=== PATIENT | male | born 1965 | race Hispanic/Latino ===

== ENCOUNTER 2019-06-02 22:47 | Emergency (ER) | payer SELFPAY ==
[2019-06-03 00:02] LABS: Eosinophils # (Auto) 0.1 K/mm3 (0.0-0.4); Eosinophils % (Auto) 2.5 % (0.0-4.3); Hemoglobin 14.3 gm/dl (11.8-15.2); Lymphocytes # (Auto) 1.2 K/mm3 (1.2-5.4); Lymphocytes % (Auto) 35.9 % (13.4-35.0); Mean Corpuscular HGB Conc 34 % (32-34); Mean Corpuscular Volume 94 fl (84-94); Monocytes # (Auto) 0.3 K/mm3 (0.0-0.8); Monocytes % (Auto) 8.3 % (0.0-7.3); Red Blood Count 4.47 M/mm3 (3.65-5.03); Red Cell Distribution Width 14.3 % (13.2-15.2)
[2019-06-03 00:18] LABS: Albumin 3.9 g/dL (3.9-5)
[2019-06-03 00:42] LABS: Bilirubin,Urine NEG (Negative); Blood,Urine NEG (Negative); Color,Urine Yellow (Yellow)
[2019-06-03 00:51] LABS: Protein,Urine >500 mg/dL (Negative)
[2019-06-03] MEDS ORDERED: ZOFRAN IV ONE (03:35)
[2019-06-03] MEDS ORDERED: TORADOL IV ONE (03:35)
[2019-06-03] MEDS ORDERED: ROCEPHIN/NS 1 GM/50 ML 1 GM/50 ML BAG IV ONE (03:35)
[2019-06-03] MEDS ORDERED: NACL 0.9% 1000 ML 1,000 ML IV ONE (03:35)
[2019-06-03] MEDS ORDERED: CATAPRES PO ONE (03:38)
--- NOTE | 2019-06-03 03:44 | Emergency Department Report ---
ED General Adult HPI - General Chief complaint: High BP Stated complaint: KIDNEY PAIN BLOOD IN URINE SWOLLEN HAND Time Seen by Provider: 06/03/19 03:33 Source: patient Mode of arrival: Ambulatory Limitations: No Limitations - History of Present Illness Initial comments: Patient is a 54-year-old white male with history of hypertension chronic renal insufficiency, recurrent renal stones, and CHF current medications Was sent for L and amlodipine only who presents for left leg. Plain with hematuria patient denies fevers or chills no nausea vomiting flank pain described as 5/10 radiating to the suprapubic Onset/Timin -: week(s) Location: back, abdomen Radiation: abdomen Severity scale (0 -10): 10 Quality: burning Consistency: intermittent Improves with: none Worsens with: other (voiding ) Treatments Prior to Arrival: none - Related Data Previous Rx's Medication Instructions Recorded Last Taken Type Ciprofloxacin HCl [Ciprofloxacin 500 mg PO BID 10 Days #20 tab 06/03/19 Unknown Rx TAB] Omeprazole 40 mg PO DAILY #30 capsule. 06/03/19 Unknown Rx Tamsulosin [Flomax] 0.4 mg PO QDAY #12 cap 06/03/19 Unknown Rx amLODIPine [Norvasc] 10 mg PO DAILY #30 tab 06/03/19 Unknown Rx traMADol [Ultram] 50 mg PO Q6HR PRN #12 tablet 06/03/19 Unknown Rx Allergies Allergy/AdvReac Type Severity Reaction Status Date / Time Sulfa (Sulfonamide Allergy Hives Verified 06/02/19 23:12 Antibiotics) sulfamethoxazole Allergy Hives Verified 06/02/19 23:12 [From Bactrim] trimethoprim [From Bactrim] Allergy Hives Verified 06/02/19 23:12 ED Review of Systems ROS: Stated complaint: KIDNEY PAIN BLOOD IN URINE SWOLLEN HAND Other details as noted in HPI Constitutional: denies: chills, fever Eyes: denies: eye pain, eye discharge, vision change ENT: denies: ear pain, throat pain Respiratory: denies: cough, shortness of breath, wheezing Cardiovascular: denies: chest pain, palpitations Endocrine: no symptoms reported Gastrointestinal: abdominal pain, nausea. denies: vomiting, diarrhea, constipation, hematemesis, melena, hematochezia Genitourinary: urgency, dysuria, frequency, hematuria. denies: discharge, testicular pain, testicular mass Musculoskeletal: back pain Skin: denies: rash, lesions Neurological: denies: headache, weakness, paresthesias Psychiatric: denies: anxiety, depression Hematological/Lymphatic: denies: easy bleeding, easy bruising ED Past Medical Hx - Past Medical History Previous Medical History?: Yes Hx Hypertension: Yes Hx Congestive Heart Failure: Yes Hx Kidney Stones: Yes Hx Tuberculosis: Yes Additional medical history: Acute Kidney failure - Surgical History Past Surgical History?: Yes Additional Surgical History: Litotripsy - Social History Smoking Status: Current Every Day Smoker Substance Use Type: None - Medications Home Medications: Home Medications Medication Instructions Recorded Confirmed Last Taken Type Ciprofloxacin HCl [Ciprofloxacin 500 mg PO BID 10 Days #20 tab 06/03/19 Unknown Rx TAB] Omeprazole 40 mg PO DAILY #30 capsule.dr 06/03/19 Unknown Rx Tamsulosin [Flomax] 0.4 mg PO QDAY #12 cap 06/03/19 Unknown Rx amLODIPine [Norvasc] 10 mg PO DAILY #30 tab 06/03/19 Unknown Rx traMADol [Ultram] 50 mg PO Q6HR PRN #12 tablet 06/03/19 Unknown Rx ED Physical Exam - General Limitations: No Limitations General appearance: alert, in no apparent distress - Head Head exam: Present: atraumatic, normocephalic - Eye Eye exam: Present: normal appearance, PERRL, EOMI Pupils: Present: normal accommodation - ENT ENT exam: Present: normal exam, mucous membranes moist - Neck Neck exam: Present: normal inspection, full ROM. Absent: tenderness, lymphadenopathy, thyromegaly - Respiratory Respiratory exam: Present: normal lung sounds bilaterally. Absent: respiratory distress, chest wall tenderness - Cardiovascular Cardiovascular Exam: Present: regular rate, normal rhythm, normal heart sounds. Absent: systolic murmur, diastolic murmur, rubs, gallop - GI/Abdominal GI/Abdominal exam: Present: soft, normal bowel sounds. Absent: distended, tenderness, bruit, hernia - Rectal Rectal exam: Present: deferred - Extremities Exam Extremities exam: Present: normal inspection, full ROM, normal capillary refill - Back Exam Back exam: Present: normal inspection, full ROM, tenderness, CVA tenderness (L). Absent: muscle spasm, rash noted - Neurological Exam Neurological exam: Present: alert, oriented X3 - Psychiatric Psychiatric exam: Present: normal affect, normal mood - Skin Skin exam: Present: warm, dry, intact, normal color. Absent: rash ED Course Vital Signs 06/02/19 06/03/19 06/03/19 23:19 02:48 03:50 Temperature 97.9 F Pulse Rate 78 64 66 Respiratory 18 20 Rate Blood Pressure 194/138 165/108 164/111 Blood Pressure [Left] O2 Sat by Pulse 98 98 Oximetry 06/03/19 06/03/19 06/03/19 03:55 04:09 04:39 Temperature Pulse Rate 66 Respiratory 20 20 18 Rate Blood Pressure Blood Pressure 164/111 [Left] O2 Sat by Pulse 99 Oximetry ED Medical Decision Making - Lab Data Result diagrams: 06/02/19 23:36 06/02/19 23:36 - Radiology Data Radiology results: report reviewed, image reviewed Ordering Physician: LUPE BARNHART NP Date of Service: 06/03/19 Procedure(s): CT abdomen pelvis wo con Accession Number(s): [id number] cc: LUPE BARNHART NP CT abdomen pelvis wo con INDICATION / CLINICAL INFORMATION: flank pain left side x 3 days, patient states he has a history of kidney stones.. TECHNIQUE: All CT scans at this location are performed using CT dose reduction for ALARA by means of automated exposure control. COMPARISON: None available. FINDINGS: Visualized lower lungs are clear. ABDOMEN: Cholelithiasis. There is mild hepatomegaly and splenomegaly. The pancreas is normal. The right kidney is normal. Left kidney is small and there is a left hydronephrosis and ureteral dilatation to the level of the left ureterovesical junction where a 1.5 cm calculus is demonstrated. No small bowel abnormality. The infrarenal abdominal aorta and both iliac arteries are ectatic. The distal abdominal aorta measures 2.7 cm. No evidence of mesenteric or retroperitoneal lymph node enlargement. Pelvis: The appendix is normal. No dependent fluid collections or acute inflammatory findings. No significant skeletal abnormalities. IMPRESSION: 1. Cholelithiasis. 2. Large distal left ureteral calculus with hydronephrosis and chronic atrophy of the left kidney. 3. Hepatosplenomegaly. Signer Name: Ellis Albright MD Signed: 06/03/2019 5:24 AM Workstation Name: [id number] Transcribed By: KARRIE Dictated By: Ellis Albright MD Electronically Authenticated By: Ellis Albright MD Signed Date/Time: 06/03/19523 DD/ 7 TD/TT: - Medical Decision Making CT abd pelvis: 1. Cholelithiasis. 2. Large distal left ureteral calculus with hydronephrosis and chronic atrophy of the left kidney. 3. Hepatosplenomegaly. pt is voiding without pain or hematuria at this time there is no fever no chills no n/v pt is tolarating po intake, pt has chronic renal disease, bp is improve wtih medications given in ed and pain is now 2/10 tolerable per patient, I have offered admission and nephrology consult pt declines advises he cannot stay for admission and will follow up with with his [employer], and pcp , pt advised to take bp medication as rx, given follow up with [facility] and [facility], Kieran pcp , pt verbalized understanding of same pt departs ed in stable condition with rx for cipro, flomax, ultram, Critical care attestation.: If time is entered above; I have spent that time in minutes in the direct care of this critically ill patient, excluding procedure time. ED Disposition Clinical Impression: Kidney stone on left side, Gall stones Chronic renal insufficiency Qualifiers: Chronic kidney disease stage: unspecified stage Qualified Code(s): N18.9 - Chronic kidney disease, unspecified Disposition: - TO HOME OR SELFCARE Is pt being admited?: No Does the pt Need Aspirin: No Condition: Stable Instructions: Kidney Stones (ED), Cholelithiasis (ED) Prescriptions: Ciprofloxacin HCl [Ciprofloxacin TAB] 500 mg PO BID 10 Days #20 tab Tamsulosin [Flomax] 0.4 mg PO QDAY #12 cap amLODIPine [Norvasc] 10 mg PO DAILY #30 tab Omeprazole 40 mg PO DAILY #30 capsule. traMADol [Ultram] 50 mg PO Q6HR PRN #12 tablet PRN Reason: Pain Referrals: ANA DOZIER MD [Staff Physician] - 2-3 Days MATA LE MD [Staff Physician] - 2-3 Days DANIEL WU MD [Staff Physician] - 2-3 Days Forms: Work/School Release Form(ED) Time of Disposition: 05:57
--- NOTE | 2019-06-03 04:34 | XRay Report ---
CHEST 2 VIEWS INDICATION / CLINICAL INFORMATION: sob. COMPARISON: None available. FINDINGS: SUPPORT DEVICES: None. HEART / MEDIASTINUM: No significant abnormality. LUNGS / PLEURA: No acute pulmonary disease. Possible pulmonary nodularity in the right midlung overly ing the posterior portion of the right seventh rib. No pneumothorax. ADDITIONAL FINDINGS: No significant additional findings. IMPRESSION: 1. No acute findings. 2. Possible right pulmonary nodule. Signer Name: Ellis Albright MD Signed: 06/03/2019 4:30 AM Workstation Name: [id number]
--- NOTE | 2019-06-03 05:28 | Cat Scan Report ---
CT abdomen pelvis wo con INDICATION / CLINICAL INFORMATION: flank pain left side x 3 days, patient states he has a history of kidney stones.. TECHNIQUE: All CT scans at this location are performed using CT dose reduction for ALARA by means of automated e xposure control. COMPARISON: None available. FINDINGS: Visualized lower lungs are clear. ABDOMEN: Cholelithiasis. There is mild hepatomegaly and splenomegaly. The pancreas is normal. The right kidney is normal. Left kidney is small and there is a left hydronephrosis and ureteral dilatation to the level of the l eft ureterovesical junction where a 1.5 cm calculus is demonstrated. No small bowel abnormality. The infrarenal abdominal aorta and both iliac arteries are ectatic. The distal abdominal aorta measur es 2.7 cm. No evidence of mesenteric or retroperitoneal lymph node enlargement. Pelvis: The appendix is normal. No dependent fluid collections or acute inflammatory findings. No significant skeletal abnormalities. IMPRESSION: 1. Cholelithiasis. 2. Large distal left ureteral calculus with hydronephrosis and chronic atrophy of the left kidney. 3. Hepatosplenomegaly. Signer Name: Ellis Albright MD Signed: 06/03/2019 5:24 AM Workstation Name: [id number]
[2019-06-03 05:55] VITALS: BP 146/100
[2019-06-03 06:57] LABS: Platelet Count 77 K/mm3 (140-440)
--- NOTE | 2019-06-04 15:06 | XRay Report ---
LEFT HAND, 2 VIEWS 06/02/2019 INDICATION / CLINICAL INFORMATION: Swollen and painful right hand.. COMPARISON: None available. FINDINGS: Slight prominence of the soft tissues of the hand without evidence of radiopaque foreign body or skel etal abnormality. Signer Name: Ellis Albright MD Signed: 06/02/2019 11:50 PM Workstation Name: [id number]
== END 2019-06-03 06:10 | disposition home or self-care (01) ==
LOC: ED 22:47
DX: I13.0 Hypertensive heart and chronic kidney disease with heart failure and stage 1 through stage 4 chronic kidney disease, or unspecified chronic kidney disease (principal); I50.9 Heart failure, unspecified; N18.9 Chronic kidney disease, unspecified; F17.200 Nicotine dependence, unspecified, uncomplicated; Z88.2 Allergy status to sulfonamides; Z79.899 Other long term (current) drug therapy
CPT/HCPCS: 36415; 71046; 73120; 74176; 80053; 81001; 85025; 87076; 87086; 87186; 96365; 96375; 99284; J0696; J1885; J2405; J7030

== ENCOUNTER 2020-03-30 21:37 | Inpatient (IN) | payer OTHER ==
[2020-03-30] MEDS ORDERED: ASPIRIN 325 MG TAB PO ONE (21:52)
[2020-03-30 22:22] LABS: Calcium 9.5 mg/dL (8.4-10.2)
[2020-03-30 22:25] LABS: Basophils % (Auto) 0.6 % (0.0-1.8); Eosinophils % (Auto) 0.6 % (0.0-4.3); Hematocrit 33.2 % (35.5-45.6); Hemoglobin 10.9 gm/dl (11.8-15.2); Lymphocytes # (Auto) 0.6 K/mm3 (1.2-5.4); Lymphocytes % (Auto) 11.9 % (13.4-35.0); Mean Corpuscular HGB Conc 33 % (32-34); Mean Corpuscular Volume 91 fl (84-94); Monocytes # (Auto) 0.4 K/mm3 (0.0-0.8); Monocytes % (Auto) 8.5 % (0.0-7.3); Platelet Count 145 K/mm3 (140-440); Red Blood Count 3.66 M/mm3 (3.65-5.03); Red Cell Distribution Width 17.1 % (13.2-15.2)
[2020-03-30 22:38] LABS: Chol/HDL Ratio 6.38 %
--- NOTE | 2020-03-30 22:45 | XRay Report ---
CHEST 1 VIEW INDICATION: Chest Pain. COMPARISON: 10/13/2019 FINDINGS: Support devices: None. Heart: Within normal limits. Lungs/Pleura: No acute air space or interstitial disease. Additional findings: None. IMPRESSION: 1. No acute findings. Signer Name: Barron Guerrero MD Signed: 03/30/2020 10:41 PM Workstation Name: [id number]
--- NOTE | 2020-03-30 22:56 | Emergency Department Report ---
ED Chest Pain HPI - General Chief Complaint: Chest Pain Stated Complaint: SEVERE CHEST PAIN SOB PUI?: No Time Seen by Provider: 03/30/20 22:48 Source: patient Mode of arrival: Ambulatory Limitations: No Limitations - History of Present Illness Initial Comments: Patient is a 54-year-old male that presents emergency room with complaints of chest pain or shortness of breath x2 weeks. Patient states that his chest pain is worsening. Patient states that he is chest pain or shortness of breath are better with rest and worse with exertion. Patient states he cannot catch his breath. Patient states he is also been having problems with anxiety. Patient states that his been using meth for the past 3 months and stopped 4 days ago. Patient denies fever. Patient also complains of dysuria. Patient states he is having difficulties peeing. Patient denies recent travel. Patient denies recent international travel. Patient denies exposure to the novel coronavirus. Patient denies sick contacts. Patient denies fever and chills. Patient denies cough. Patient denies diarrhea. Patient denies coming in contact with anybody with symptoms of the novel coronavirus. MD Complaint: chest pain -: Sudden Onset: during rest Pain Location: substernal, left chest Pain Radiation: none Severity: severe Severity scale (0 -10): 10 Quality: sharp Consistency: constant Improves With: rest Worsens With: exertion re: dyspnea. denies: nausea, vomting, diaphoresis, sense of impending doom Other Symptoms: denies: cough, fever, syncope, rash, acid taste in mouth, leg swelling, palpitations, burping Treatments Prior to Arrival: none Aspirin use within the Past 7 Days: (0) No - Related Data Previous Rx's Medication Instructions Recorded Last Taken Type Ciprofloxacin HCl [Ciprofloxacin 500 mg PO BID 10 Days #20 tab 06/03/19 Unknown Rx TAB] Omeprazole 40 mg PO DAILY #30 capsule. 06/03/19 Unknown Rx Tamsulosin [Flomax] 0.4 mg PO QDAY #12 cap 06/03/19 Unknown Rx amLODIPine 10 mg PO DAILY #30 tab 06/03/19 Unknown Rx traMADoL [Ultram] 50 mg PO Q6HR PRN #12 tablet 06/03/19 Unknown Rx Allergies Allergy/AdvReac Type Severity Reaction Status Date / Time Sulfa (Sulfonamide Allergy Hives Verified 06/02/19 23:12 Antibiotics) sulfamethoxazole Allergy Hives Verified 06/02/19 23:12 [From Bactrim] trimethoprim [From Bactrim] Allergy Hives Verified 06/02/19 23:12 Heart Score - HEART Score History: Slightly suspicious EKG: Non-specific Age: 45-65 Risk factors: No known risk factors Troponin: > 3x normal limit HEART Score: 4 ED Review of Systems ROS: Stated complaint: SEVERE CHEST PAIN SOB Other details as noted in HPI Constitutional: denies: chills, fever Eyes: denies: eye pain, eye discharge, vision change ENT: denies: ear pain, throat pain Respiratory: shortness of breath, SOB with exertion, SOB at rest. denies: cough, wheezing Cardiovascular: chest pain. denies: palpitations Endocrine: no symptoms reported Gastrointestinal: denies: abdominal pain, nausea, diarrhea Genitourinary: dysuria. denies: urgency Musculoskeletal: denies: back pain, joint swelling, arthralgia Skin: denies: rash, lesions Neurological: denies: headache, weakness, paresthesias Psychiatric: anxiety. denies: depression Hematological/Lymphatic: denies: easy bleeding, easy bruising ED Past Medical Hx - Past Medical History Previous Medical History?: Yes Hx Hypertension: Yes Hx Congestive Heart Failure: Yes Hx Liver Disease: No Hx Renal Disease: No Hx Kidney Stones: Yes Hx COPD: Yes Hx Tuberculosis: Yes - Surgical History Past Surgical History?: Yes Additional Surgical History: Litotripsy - Family History Family history: no significant - Social History Smoking Status: Current Every Day Smoker Substance Use Type: Alcohol, Marijuana, Methamphetamines - Medications Home Medications: Home Medications Medication Instructions Recorded Confirmed Last Taken Type Ciprofloxacin HCl [Ciprofloxacin 500 mg PO BID 10 Days #20 tab 06/03/19 Unknown Rx TAB] Omeprazole 40 mg PO DAILY #30 capsule. 06/03/19 Unknown Rx Tamsulosin [Flomax] 0.4 mg PO QDAY #12 cap 06/03/19 Unknown Rx amLODIPine 10 mg PO DAILY #30 tab 06/03/19 Unknown Rx traMADoL [Ultram] 50 mg PO Q6HR PRN #12 tablet 06/03/19 Unknown Rx ED Physical Exam - General Limitations: No Limitations General appearance: alert, in no apparent distress - Head Head exam: Present: atraumatic, normocephalic - Eye Eye exam: Present: normal appearance, PERRL Pupils: Present: normal accommodation - ENT ENT exam: Present: mucous membranes moist - Neck Neck exam: Present: normal inspection - Respiratory Respiratory exam: Present: normal lung sounds bilaterally. Absent: respiratory distress, wheezes, chest wall tenderness - Cardiovascular Cardiovascular Exam: Present: regular rate, normal rhythm. Absent: systolic murmur, diastolic murmur, rubs, gallop - GI/Abdominal GI/Abdominal exam: Present: soft, normal bowel sounds - Rectal Rectal exam: Present: deferred - Extremities Exam Extremities exam: Present: normal inspection - Back Exam Back exam: Present: normal inspection - Neurological Exam Neurological exam: Present: alert, oriented X3 - Psychiatric Psychiatric exam: Present: anxious - Skin Skin exam: Present: warm, dry, intact, normal color. Absent: rash ED Course Vital Signs 03/30/20 03/30/20 03/31/20 21:48 22:54 00:29 Temperature 98.3 F Pulse Rate 79 74 65 Respiratory 22 17 17 Rate Blood Pressure 142/102 Blood Pressure 148/96 128/94 [Right] O2 Sat by Pulse 98 100 100 Oximetry - Reevaluation(s) Reevaluation #1: Patient is complaining of increased chest pain and anxiety. Patient will be given morphine and Ativan. 03/30/20 23:19 Reevaluation #2: Patient states he is feeling better. 03/31/20 00:00 0 Reevaluation #3: I discussed all results with patient. I discussed plan of care with patient. Patient agrees with plan of care and admission. Patient to be admitted to the hospitalist service. 03/31/20 00:29 - Consultations Consultation #1: Hospitalist consulted for admission. Hospitalist to admit patient. 03/31/20 00:28 CHAZ score - Chaz Score Age > 65: (0) No Aspirin use within the Past 7 Days: (0) No 3 or more CAD Risk Factors: (0) No 2 or more Angina events in past 24 hrs: (1) Yes Known CAD with more than 50% Stenosis: (0) No Elevated Cardiac Markers: (1) Yes ST Deviation Greater than 0.5mm: (0) No CHAZ Score: 2 ED Medical Decision Making - Lab Data Result diagrams: 03/30/20 21:57 03/30/20 21:57 - EKG Data -: EKG Interpreted by Me EKG shows normal: sinus rhythm, axis, intervals, ST-T waves Rate: normal - EKG Data Interpretation: other (LBBB) - Radiology Data Radiology results: report reviewed, image reviewed CHEST 1 VIEW INDICATION: Chest Pain. COMPARISON: 10/13/2019 FINDINGS: Support devices: None. Heart: Within normal limits. Lungs/Pleura: No acute air space or interstitial disease. Additional findings: None. IMPRESSION: 1. No acute findings. - Medical Decision Making Patient is a 54-year-old male that presents emergency room with complaints of chest pain, shortness of breath and dysuria. Patient symptoms been going on for a few weeks. Patient is also had a 3 to 4 months binge of methamphetamines and he quit 4 weeks ago. Patient also complained of anxiety due to quitting methamphetamines. Patient's labs were remarkable for anemia, acute renal failure, elevated troponin, elevated BNP and UTI. Patient's chest x-ray is negative. Patient did not have any CHF changes on chest x-ray. Patient's EKG shows a left bundle branch block and no acute findings. Patient admitted to the hospitalist service. - Differential Diagnosis ACS, chest pain, CHF, kidney failure, drug abuse, dysuria, UTI Critical Care Time: Yes Critical care time in (mins) excluding proc time.: 35 Critical care attestation.: If time is entered above; I have spent that time in minutes in the direct care of this critically ill patient, excluding procedure time. Critical Care Time: 35 minutes ED Disposition Clinical Impression: SOB (shortness of breath), Anxiety, Elevated troponin, Methamphetamine abuse Chest pain Qualifiers: Chest pain type: unspecified Qualified Code(s): R07.9 - Chest pain, unspecified Acute renal failure Qualifiers: Acute renal failure type: unspecified Qualified Code(s): N17.9 - Acute kidney failure, unspecified Disposition: DC-09 OP ADMIT IP TO THIS HOSP Is pt being admited?: Yes Does the pt Need Aspirin: No Condition: Critical Time of Disposition: 00:29
[2020-03-30] MEDS ORDERED: MORPHINE 2 MG/1 ML INJ IV ONE (23:17)
[2020-03-30] MEDS ORDERED: LORazepam 2 MG/ML VIAL IV ONE (23:17)
[2020-03-30] MEDS ORDERED: ONDANSETRON 4 MG/2 ML INJ ONE (23:26)
[2020-03-30] MEDS ORDERED: ONDANSETRON 4 MG/2 ML INJ IV ONE (23:27)
[2020-03-30] MEDS ORDERED: SODIUM CHLORIDE 0.9% 500 ML 500 ML IV ONE (23:59)
[2020-03-31 01:00] LABS: Benzodiazepines Screen,Urine PRESUMPTIVE NEGATIVE; Cocaine Screen,Urine PRESUMPTIVE NEGATIVE; Methadone Screen,Urine PRESUMPTIVE NEGATIVE; Opiate Screen,Urine PRESUMPTIVE NEGATIVE
[2020-03-31 01:01] LABS: Bacteria,Urine 2+ /HPF (Negative); Bilirubin,Urine NEG (Negative); Blood,Urine LG (Negative); Color,Urine Yellow (Yellow); Mucus,Urine FEW /HPF; Urobilinogen,Urine < 2.0 mg/dL (<2.0)
[2020-03-31] MEDS ORDERED: MAGNESIUM HYDROXIDE (MOM) ORAL LIQD UDC PO PRN (01:07)
[2020-03-31] MEDS ORDERED: NITROGLYCERIN 0.4 MG TAB SUBL SL PRN (01:07)
[2020-03-31 01:09] LABS: Amphetamine Screen,Urine PRESUMPTIVE POSITIVE; Cannabinoid Screen,Urine PRESUMPTIVE POSITIVE
[2020-03-31 01:51] LABS: Basophils % (Auto) 0.4 % (0.0-1.8); Eosinophils % (Auto) 0.5 % (0.0-4.3); Hematocrit 30.4 % (35.5-45.6); Hemoglobin 10.2 gm/dl (11.8-15.2); Lymphocytes # (Auto) 0.5 K/mm3 (1.2-5.4); Lymphocytes % (Auto) 10.6 % (13.4-35.0); Mean Corpuscular HGB Conc 34 % (32-34); Mean Corpuscular Volume 89 fl (84-94); Monocytes # (Auto) 0.4 K/mm3 (0.0-0.8); Monocytes % (Auto) 8.6 % (0.0-7.3); Platelet Count 141 K/mm3 (140-440); Red Blood Count 3.41 M/mm3 (3.65-5.03)
[2020-03-31 02:11] LABS: Calcium 8.6 mg/dL (8.4-10.2)
--- NOTE | 2020-03-31 02:16 | History and Physical Report ---
History of Present Illness Date of examination: 03/31/20 Date of admission: 03/31/20 00:30 Chief complaint: Chest pain History of present illness: 54-year-old male with known history of hypertension and CHF presenting to the emergency room today complaining of chest pain or shortness of breath. Chest pain is said to be worse on exertion and improved some a resting. He also indicates that he has been having anxiety attacks lately. He admits to using methamphetamine over the past few months and stopped the use about 4 days ago. Chest pain is substernal and there is no radiation. Patient denies any fever or chills, no nausea vomiting, no headache or dizzines s, no hematuria but has had some dysuria. He denies any sick contacts and no recent travel. Denies contacts with anyone with COVID-19. Past History Past Medical History: COPD, heart failure, hypertension, other (History of kidney stone,TB) Past Surgical History: Other (Lithotripsy in the past) Social history: smoking (Daily smoker), alcohol abuse, other (Stroke marijuana use) Family history: no significant family history Medications and Allergies Allergies Allergy/AdvReac Type Severity Reaction Status Date / Time Sulfa (Sulfonamide Allergy Hives Verified 06/02/19 23:12 Antibiotics) sulfamethoxazole Allergy Hives Verified 06/02/19 23:12 [From Bactrim] trimethoprim [From Bactrim] Allergy Hives Verified 06/02/19 23:12 Home Medications Medication Instructions Recorded Confirmed Last Taken Type Ciprofloxacin HCl [Ciprofloxacin 500 mg PO BID 10 Days #20 tab 06/03/19 Unknown Rx TAB] Omeprazole 40 mg PO DAILY #30 capsule. 06/03/19 Unknown Rx Tamsulosin [Flomax] 0.4 mg PO QDAY #12 cap 06/03/19 Unknown Rx amLODIPine 10 mg PO DAILY #30 tab 06/03/19 Unknown Rx traMADoL [Ultram] 50 mg PO Q6HR PRN #12 tablet 06/03/19 Unknown Rx Active Meds: Active Medications Acetaminophen (Tylenol) 650 mg PO Q4H PRN PRN Reason: Pain MILD(1-3)/Fever >100.5/SINGH Aspirin (Ecotrin) 325 mg PO QDAY JULIENNE Ceftriaxone Sodium (Rocephin/Ns 1 Gm/50 Ml) 1 gm in 50 mls @ 100 mls/hr IV Q24HR JULIENNE; Protocol Sodium Chloride (Nacl 0.9% 1000 Ml) 1,000 mls @ 75 mls/hr IV DIRECT JULIENNE Magnesium Hydroxide (Milk Of Magnesia) 30 ml PO Q4H PRN PRN Reason: Constipation Morphine Sulfate (Morphine) 2 mg IV Q5MIN PRN PRN Reason: Chest Pain Nitroglycerin (Nitrostat) 0.4 mg SL Q5M PRN PRN Reason: Chest Pain Ondansetron HCl (Zofran) 4 mg IV Q8H PRN PRN Reason: Nausea And Vomiting Sodium Chloride (Sodium Chloride Flush Syringe 10 Ml) 10 ml IV BID JULIENNE Sodium Chloride (Sodium Chloride Flush Syringe 10 Ml) 10 ml IV PRN PRN PRN Reason: LINE FLUSH Review of Systems Constitutional: no fever, no chills Ears, nose, mouth and throat: no headache, no vertigo Cardiovascular: chest pain, no orthopnea, no palpitations Respiratory: shortness of breath, no cough Gastrointestinal: no abdominal pain, no nausea, no vomiting, no diarrhea Genitourinary Male: dysuria, urinary frequency, urinary hesitancy, no hematuria, no flank pain Musculoskeletal: no neck pain, no low back pain Integumentary: no rash, no pruritis Neurological: no headaches, no change in mentation Psychiatric: anxiety, anxiety attacks, no confusion Exam - Constitutional Vitals: Temp Pulse Resp BP Pulse Ox 98.3 F 64 16 131/84 97 03/30/20 21:48 03/31/20 02:10 03/31/20 02:10 03/31/20 02:10 03/31/20 02:10 General appearance: Present: no acute distress, well-nourished - EENT Eyes: Present: PERRL, EOM intact ENT: hearing intact, clear oral mucosa, dentition normal - Neck Neck: Present: supple, normal ROM - Respiratory Respiratory effort: normal Respiratory: bilateral: CTA - Cardiovascular Rhythm: regular Heart Sounds: Present: S1 & S2 - Extremities Extremities: no ischemia, pulses intact, pulses symmetrical, No edema, Full ROM Peripheral Pulses: within normal limits - Abdominal General gastrointestinal: Present: soft, non-tender, non-distended, normal bowel sounds - Integumentary Integumentary: Present: clear, warm, dry - Musculoskeletal Musculoskeletal: strength equal bilaterally - Psychiatric Psychiatric: appropriate mood/affect, intact judgment & insight, cooperative - Neurologic Neurologic: CNII-XII intact, moves all extremities HEART Score - HEART Score History: Moderately suspicious EKG: Non-specific Age: 45-65 Risk factors: 1-2 risk factors Troponin: Troponin T 0.141 ng/mL (0.00-0.029) H* 03/31/20 00:51 Troponin: 1-3x normal limit HEART Score: 5 Results - Labs CBC & Chem 7: 03/31/20 01:30 03/31/20 01:30 Labs: Abnormal lab results 03/30/20 03/30/20 03/30/20 Range/Units 21:57 21:57 21:57 WBC (4.5-11.0) K/mm3 RBC (3.65-5.03) M/mm3 Hgb 10.9 L (11.8-15.2) gm/dl Hct 33.2 L (35.5-45.6) % RDW 17.1 H (13.2-15.2) % Lymph % (Auto) 11.9 L (13.4-35.0) % [place] % (Auto) 8.5 H (0.0-7.3) % Lymph # 0.6 L (1.2-5.4) K/mm3 Seg Neutrophils % 78.4 H (40.0-70.0) % Sodium 130 L (137-145) mmol/L Chloride 96.5 L (98-107) mmol/L Carbon Dioxide 15 L (22-30) mmol/L BUN 107 H (9-20) mg/dL Creatinine 7.1 H (0.8-1.5) mg/dL Glucose 165 H (75-100) mg/dL Troponin T 0.141 H* (0.00-0.029) ng/mL NT-Pro-B Natriuret Pep > 50898 H (0-900) pg/mL HDL Cholesterol 26 L (40-59) mg/dL Urine WBC (Auto) (0.0-6.0) /HPF 03/31/20 03/31/20 03/31/20 Range/Units 00:29 00:51 01:30 WBC 4.4 L (4.5-11.0) K/mm3 RBC 3.41 L (3.65-5.03) M/mm3 Hgb 10.2 L (11.8-15.2) gm/dl Hct 30.4 L (35.5-45.6) % RDW 17.0 H (13.2-15.2) % Lymph % (Auto) 10.6 L (13.4-35.0) % [place] % (Auto) 8.6 H (0.0-7.3) % Lymph # 0.5 L (1.2-5.4) K/mm3 Seg Neutrophils % 79.9 H (40.0-70.0) % Sodium (137-145) mmol/L Chloride (98-107) mmol/L Carbon Dioxide (22-30) mmol/L BUN (9-20) mg/dL Creatinine (0.8-1.5) mg/dL Glucose (75-100) mg/dL Troponin T 0.141 H* (0.00-0.029) ng/mL NT-Pro-B Natriuret Pep (0-900) pg/mL HDL Cholesterol (40-59) mg/dL Urine WBC (Auto) 138.0 H (0.0-6.0) /HPF 03/31/20 Range/Units 01:30 WBC (4.5-11.0) K/mm3 RBC (3.65-5.03) M/mm3 Hgb (11.8-15.2) gm/dl Hct (35.5-45.6) % RDW (13.2-15.2) % Lymph % (Auto) (13.4-35.0) % [place] % (Auto) (0.0-7.3) % Lymph # (1.2-5.4) K/mm3 Seg Neutrophils % (40.0-70.0) % Sodium 132 L (137-145) mmol/L Chloride 97.6 L (98-107) mmol/L Carbon Dioxide 15 L (22-30) mmol/L BUN 105 H (9-20) mg/dL Creatinine 6.4 H (0.8-1.5) mg/dL Glucose 111 H (75-100) mg/dL Troponin T (0.00-0.029) ng/mL NT-Pro-B Natriuret Pep (0-900) pg/mL HDL Cholesterol (40-59) mg/dL Urine WBC (Auto) (0.0-6.0) /[facility] Assessment and Plan - Patient Problems (1) Chest pain Current Visit: Yes Status: Acute Qualifiers: Chest pain type: unspecified Qualified Code(s): R07.9 - Chest pain, unspecified Plan to address problem: Patient admitted and placed on telemetry. Will check serial cardiac enzymes. Will place on daily aspirin, sublingual nitroglycerin and IV morphine PRN for chest pain. Also schedule for stress test in the a.m. Elevated troponin may be secondary to his drug abuse however will place on heparin drip and await further evaluation and recommendation from the mate ship. (2) Acute renal failure Current Visit: Yes Status: Acute Qualifiers: Acute renal failure type: unspecified Qualified Code(s): N17.9 - Acute kidney failure, unspecified Plan to address problem: Etiology is unclear however may be related to his illicit drug abuse. Will monitor BUN and creatinine also place a consult to nephrology for evaluation. (3) Methamphetamine abuse Current Visit: Yes Status: Acute Plan to address problem: Patient counseled on quitting methamphetamine abuse. (4) UTI (urinary tract infection) Current Visit: Yes Status: Acute Plan to address problem: Patient placed on empiric IV antibiotics (5) DVT prophylaxis Current Visit: Yes Status: Acute Plan to address problem: Patient placed on subcutaneous heparin (6) Full code status Current Visit: Yes Status: Acute
[2020-03-31 07:30] LABS: Hematocrit 33.7 % (35.5-45.6); Hemoglobin 11.3 gm/dl (11.8-15.2)
[2020-03-31 07:41] LABS: INR 1.17 (0.87-1.13); Partial Thromboplastin Time 31.2 Sec. (24.2-36.6)
[2020-03-31] MEDS ORDERED: HEPARIN/ 0.45% NACL DRIP 25,000 UNIT/500 ML BAG IV SCH (08:00)
--- NOTE | 2020-03-31 09:17 | Ultrasound Report ---
ULTRASOUND RENAL INDICATION: fabiana. COMPARISON: CT abdomen and pelvis without contrast from 08/04/2019. FINDINGS: RIGHT KIDNEY: Size: 11.9 x 5.5 cm. Echogenicity: Increased. Cortical thickness: Normal, 1.9 cm. Hydronephrosis: None. Cyst or mass: None. Stones: None. LEFT KIDNEY: Size: 6.4 x 3.5 cm. Echogenicity: Increased. Cortical thickness: Moderate thinning, 0.8 cm. Hydronephrosis: None. Cyst or mass: None. Stones: None. Urinary Bladder: No significant abnormality. Free Fluid: Minimal right perinephric fluid is noted. Additional Findings: None. IMPRESSION 1. Findings consistent with medical renal disease. 2. Similar atrophy of the left kidney. Signer Name: Cesar Sosa MD Signed: 03/31/2020 9:12 AM Workstation Name: [id number]
[2020-03-31] MEDS: cefTRIAXone/NS 1 GM/50 ML 1 GM/50 ML BAG IV SCH (10:05)
[2020-03-31] MEDS ORDERED: HEPARIN/ 0.45% NACL DRIP 25,000 UNIT/500 ML BAG ONE (10:40)
--- NOTE | 2020-03-31 11:15 | Consultation ---
History of Present Illness Consult date: 03/31/20 Consult reason: chest pain History of present illness: 54-year old male with a history of CHF who has not followed with a physician in several years. He presents to the emergency department and admitted with chest pain and shortness of breath. Initial labs shows severe renal failure with a creatinine at 7.1. Records shows a creatinine of 2.6 10 months ago. Chest x-ray shows evidence of interstitial edema. There is no lower extremity edema. An ECG is sinus rhythm with a LBBB. Cardiology consultation has been requested. Past History Past Medical History: COPD, heart failure, hypertension, other (History of kidney stone,TB) Past Surgical History: Other (Lithotripsy in the past) Social history: smoking (Daily smoker), alcohol abuse, other (marijuana use) Medications and Allergies Allergies Allergy/AdvReac Type Severity Reaction Status Date / Time Sulfa (Sulfonamide Allergy Hives Verified 06/02/19 23:12 Antibiotics) sulfamethoxazole Allergy Hives Verified 06/02/19 23:12 [From Bactrim] trimethoprim [From Bactrim] Allergy Hives Verified 06/02/19 23:12 Home Medications Medication Instructions Recorded Confirmed Last Taken Type Ciprofloxacin HCl [Ciprofloxacin 500 mg PO BID 10 Days #20 tab 06/03/19 Unknown Rx TAB] Omeprazole 40 mg PO DAILY #30 capsule. 06/03/19 Unknown Rx Tamsulosin [Flomax] 0.4 mg PO QDAY #12 cap 06/03/19 Unknown Rx amLODIPine 10 mg PO DAILY #30 tab 06/03/19 Unknown Rx traMADoL [Ultram] 50 mg PO Q6HR PRN #12 tablet 06/03/19 Unknown Rx Active Meds: Active Medications Acetaminophen (Tylenol) 650 mg PO Q4H PRN PRN Reason: Pain MILD(1-3)/Fever >100.5/SINGH Aspirin (Ecotrin) 325 mg PO QDAY JULIENNE Ceftriaxone Sodium (Rocephin/Ns 1 Gm/50 Ml) 1 gm in 50 mls @ 100 mls/hr IV Q24HR JULIENNE; Protocol Last Admin: 03/31/20 10:05 Dose: 100 mls/hr Documented by: Sodium Chloride (Nacl 0.9% 1000 Ml) 1,000 mls @ 75 mls/hr IV DIRECT JULIENNE Heparin Sodium/Sodium Chloride (Heparin/ 0.45% Nacl-25,000 Unit/500 Ml) 25,000 unit in 500 mls @ 20 mls/hr IV TITRATE JULIENNE; Protocol Magnesium Hydroxide (Milk Of Magnesia) 30 ml PO Q4H PRN PRN Reason: Constipation Morphine Sulfate (Morphine) 2 mg IV Q5MIN PRN PRN Reason: Chest Pain Nitroglycerin (Nitrostat) 0.4 mg SL Q5M PRN PRN Reason: Chest Pain Ondansetron HCl (Zofran) 4 mg IV Q8H PRN PRN Reason: Nausea And Vomiting Sodium Chloride (Sodium Chloride Flush Syringe 10 Ml) 10 ml IV BID [facility] Last Admin: 03/31/20 10:06 Dose: 10 ml Documented by: Sodium Chloride (Sodium Chloride Flush Syringe 10 Ml) 10 ml IV PRN PRN PRN Reason: LINE FLUSH Physical Examination Vital Signs Temp Pulse Resp BP Pulse Ox 98.3 F 79 22 142/102 98 03/30/20 21:48 03/30/20 21:48 03/30/20 21:48 03/30/20 21:48 03/30/20 21:48 General appearance: no acute distress HEENT: Positive: PERRL Neck: Positive: trachea midline Cardiac: Positive: Reg Rate and Rhythm Results 03/31/20 07:23 03/31/20 01:30 Coagulation 03/31/20 Range/Units 07:19 PT 15.0 H (12.2-14.9) Sec. INR 1.17 H (0.87-1.13) APTT 31.2 (24.2-36.6) Sec. Lipids 03/30/20 Range/Units 21:57 Triglycerides 133 (2-149) mg/dL Cholesterol 166 (50-199) mg/dL HDL Cholesterol 26 L (40-59) mg/dL Cholesterol/HDL Ratio 6.38 % CBC 03/30/20 03/31/20 03/31/20 Range/Units 21:57 01:30 07:23 WBC 5.2 4.4 L (4.5-11.0) K/mm3 RBC 3.66 3.41 L (3.65-5.03) M/mm3 Hgb 10.9 L 10.2 L 11.3 L (11.8-15.2) gm/dl Hct 33.2 L 30.4 L 33.7 L (35.5-45.6) % Plt Count 145 141 136 L (140-440) K/mm3 Lymph # 0.6 L 0.5 L (1.2-5.4) K/mm3 [place] # 0.4 0.4 (0.0-0.8) K/mm3 Eos # 0.0 0.0 (0.0-0.4) K/mm3 Baso # 0.0 0.0 (0.0-0.1) K/mm3 Comprehensive Metabolic Panel 03/30/20 03/31/20 Range/Units 21:57 01:30 Sodium 130 L 132 L (137-145) mmol/L Potassium 4.3 4.1 (3.6-5.0) mmol/L Chloride 96.5 L 97.6 L (98-107) mmol/L Carbon Dioxide 15 L 15 L (22-30) mmol/L BUN 107 H 105 H (9-20) mg/dL Creatinine 7.1 H 6.4 H (0.8-1.5) mg/dL Glucose 165 H 111 H (75-100) mg/dL Calcium 9.5 8.6 (8.4-10.2) mg/dL Assessment and Plan Congestive heart failure Renal failure Hypertension Substance abuse Advised sodium/fluid restrictions. Echocardiogram for LVEF assessment. Medical management for chronic heart failure as tolerated.
--- NOTE | 2020-03-31 12:20 | Progress Note ---
Assessment and Plan Assessment and plan: Acute on CKD. Patient appears to have a baseline creatinine of 2.6 in May 2019. However, patient presents to the emergency department with a creatinine of greater than 7. Nephrology consultation pending. Renal ultrasound shows evidence of medical renal disease. No evidence of obstruction or hydron ephrosis. Continue to monitor BMP. Chest pain. Patient does have elevated troponin. However, this may be related to renal insufficiency. Continue to monitor cardiac isoenzymes. An ECG is sinus rhythm with a LBBB. Chest pain pathway. Cardiology consulted and cardiac evaluation per their recommendation. Methamphetamine abuse. Patient has been counseled on cessation. Withdrawal protocols. Acute psychosis. Nurse reports patient with auditory hallucinations. Psychiatric consultation. History Interval history: No new issues overnight. Hospitalist Physical - Constitutional Vitals: Temp Pulse Resp BP Pulse Ox 98.3 F 65 18 130/85 98 03/30/20 21:48 03/31/20 06:00 03/31/20 09:10 03/31/20 06:00 03/31/20 09:10 General appearance: Present: no acute distress, well-nourished - EENT Eyes: Present: PERRL, EOM intact ENT: hearing intact, clear oral mucosa, dentition normal - Neck Neck: Present: supple, normal ROM - Respiratory Respiratory effort: normal Respiratory: bilateral: CTA - Cardiovascular Rhythm: regular Heart Sounds: Present: S1 & S2. Absent: gallop, rub - Extremities Extremities: no ischemia, No edema, Full ROM - Abdominal General gastrointestinal: soft, non-tender, non-distended, normal bowel sounds - Integumentary Integumentary: Present: clear, warm, dry - Neurologic Neurologic: CNII-XII intact, moves all extremities HEART Score - HEART Score EKG: Non-specific Age: 45-65 Risk factors: 1-2 risk factors Troponin: Troponin T 0.123 ng/mL (0.00-0.029) H* 03/31/20 07:02 Troponin: 1-3x normal limit Results - Labs CBC & Chem 7: 03/31/20 07:23 03/31/20 01:30 Labs: Laboratory Last Values WBC 4.4 K/mm3 (4.5-11.0) L 03/31/20 01:30 RBC 3.41 M/mm3 (3.65-5.03) L 03/31/20 01:30 Hgb 11.3 gm/dl (11.8-15.2) L 03/31/20 07:23 Hct 33.7 % (35.5-45.6) L 03/31/20 07:23 MCV 89 fl (84-94) 03/31/20 01:30 MCH 30 pg (28-32) 03/31/20 01:30 MCHC 34 % (32-34) 03/31/20 01:30 RDW 17.0 % (13.2-15.2) H 03/31/20 01:30 Plt Count 136 K/mm3 (140-440) L 03/31/20 07:23 Lymph % (Auto) 10.6 % (13.4-35.0) L 03/31/20 01:30 [place] % (Auto) 8.6 % (0.0-7.3) H 03/31/20 01:30 Eos % (Auto) 0.5 % (0.0-4.3) 03/31/20 01:30 Baso % (Auto) 0.4 % (0.0-1.8) 03/31/20 01:30 Lymph # 0.5 K/mm3 (1.2-5.4) L 03/31/20 01:30 [place] # 0.4 K/mm3 (0.0-0.8) 03/31/20 01:30 Eos # 0.0 K/mm3 (0.0-0.4) 03/31/20 01:30 Baso # 0.0 K/mm3 (0.0-0.1) 03/31/20 01:30 Seg Neutrophils % 79.9 % (40.0-70.0) H 03/31/20 01:30 Seg Neutrophils # 3.5 K/mm3 (1.8-7.7) 03/31/20 01:30 PT 15.0 Sec. (12.2-14.9) H 03/31/20 07:19 INR 1.17 (0.87-1.13) H 03/31/20 07:19 APTT 31.2 Sec. (24.2-36.6) 03/31/20 07:19 Sodium 132 mmol/L (137-145) L 03/31/20 01:30 Potassium 4.1 mmol/L (3.6-5.0) 03/31/20 01:30 Chloride 97.6 mmol/L (98-107) L 03/31/20 01:30 Carbon Dioxide 15 mmol/L (22-30) L 03/31/20 01:30 Anion Gap 24 mmol/L 03/31/20 01:30 BUN 105 mg/dL (9-20) H 03/31/20 01:30 Creatinine 6.4 mg/dL (0.8-1.5) H 03/31/20 01:30 Estimated GFR 9 ml/min 03/31/20 01:30 BUN/Creatinine Ratio 16 % 03/31/20 01:30 Glucose 111 mg/dL (75-100) H 03/31/20 01:30 Calcium 8.6 mg/dL (8.4-10.2) 03/31/20 01:30 Troponin T 0.123 ng/mL (0.00-0.029) H* 03/31/20 07:02 NT-Pro-B Natriuret Pep > 58109 pg/mL (0-900) H 03/30/20 21:57 Triglycerides 133 mg/dL (2-149) 03/30/20 21:57 Cholesterol 166 mg/dL (50-199) 03/30/20 21:57 LDL Cholesterol Direct 119 mg/dL (50-130) 03/30/20 21:57 HDL Cholesterol 26 mg/dL (40-59) L 03/30/20 21:57 Cholesterol/HDL Ratio 6.38 % 03/30/20 21:57 Urine Color Yellow (Yellow) 03/31/20 00:29 Urine Turbidity Slightly-cloudy (Clear) 03/31/20 00:29 Urine pH 5.0 (5.0-7.0) 03/31/20 00:29 Ur Specific [place] 1.016 (1.003-1.030) 03/31/20 00: Urine Protein 100 mg/dl mg/dL (Negative) 03/31/20 00:29 Urine Glucose (UA) Neg mg/dL (Negative) 03/31/20 00: Urine Ketones Neg mg/dL (Negative) 03/31/20 00:29 Urine Blood Lg (Negative) 03/31/20 00: Urine Nitrite Neg (Negative) 03/31/20 00:29 Urine Bilirubin Neg (Negative) 03/31/20 00:29 Urine Urobilinogen < 2.0 mg/dL (<2.0) 03/31/20 00:29 Ur Leukocyte Esterase Mod (Negative) 03/31/20 00:29 Urine WBC (Auto) 138.0 /HPF (0.0-6.0) H 03/31/20 00:29 Urine RBC (Auto) 116.0 /HPF (0.0-6.0) 03/31/20 00:29 U Epithel Cells (Auto) < 1.0 /HPF (0-13.0) 03/31/20 00:29 Urine Bacteria (Auto) 2+ /HPF (Negative) 03/31/20 00:29 Urine WBC Clumps 2+ /HPF 03/31/20 00:29 Urine Mucus Few /HPF 03/31/20 00:29 Urine Opiates Screen Presumptive negative 03/31/20 00:29 Urine Methadone Screen Presumptive negative 03/31/20 00:29 Ur Barbiturates Screen Presumptive negative 03/31/20 00:29 Ur Phencyclidine Scrn Presumptive negative 03/31/20 00:29 Ur Amphetamines Screen Presumptive positive 03/31/20 00:29 U Benzodiazepines Scrn Presumptive negative 03/31/20 00:29 Urine Cocaine Screen Presumptive negative 03/31/20 00:29 U Marijuana (THC) Screen Presumptive positive 03/31/20 00:29 Drugs of Abuse Note Disclamer 03/31/20 00:29 Johnson/IV: IV Catheter Type [Left INT / Saline Lock Antecubital] Active Medications - Current Medications Current Medications: Generic Name Dose Route Start Last Admin Trade Name Freq PRN Reason Stop Dose Admin Acetaminophen 650 mg 03/31/20 01:07 Tylenol PO Q4H PRN Pain MILD(1-3)/Fever >100.5/SINGH Aspirin 325 mg 04/01/20 10:00 Ecotrin PO QDAY JULIENNE Ceftriaxone Sodium 1 gm in 50 mls @ 100 mls/hr 03/31/20 10:00 03/31/20 10:05 Rocephin/Ns 1 Gm/50 Ml IV 100 mls/hr Q24HR JULIENNE Administration Protocol Sodium Chloride 1,000 mls @ 75 mls/hr 03/31/20 01:15 Nacl 0.9% 1000 Ml IV DIRECT JULIENNE Heparin Sodium/Sodium Chloride 25,000 unit in 500 mls @ 20 mls/hr 03/31/20 08:00 Heparin/ 0.45% Nacl-25,000 Unit/500 Ml IV TITRATE JULIENNE Protocol 1,000 UNITS/HR Magnesium Hydroxide 30 ml 03/31/20 01:07 Milk Of Magnesia PO Q4H PRN Constipation Morphine Sulfate 2 mg 03/31/20 01:07 Morphine IV Q5MIN PRN Chest Pain Nitroglycerin 0.4 mg 03/31/20 01:07 Nitrostat SL Q5M PRN Chest Pain Ondansetron HCl 4 mg 03/31/20 01:07 Zofran IV Q8H PRN Nausea And Vomiting Sodium Chloride 10 ml 03/31/20 10:00 03/31/20 10:06 Sodium Chloride Flush Syringe 10 Ml IV 10 ml BID JULIENNE Administration Sodium Chloride 10 ml 03/31/20 01:07 Sodium Chloride Flush Syringe 10 Ml IV PRN PRN LINE FLUSH
[2020-03-31] MEDS: carvediloL 6.25 MG TAB PO SCH ×2 (13:15→21:26)
[2020-03-31] MEDS ORDERED: SODIUM CHLORIDE 0.9% 1000 ML 1,000 ML ONE (13:46)
[2020-03-31] MEDS ORDERED: HEPARIN 5,000 UNIT/1 ML VIAL SUB-Q SCH (14:00)
[2020-03-31] MEDS ORDERED: hydrALAZINE 25 MG TAB PO SCH (14:00)
[2020-03-31] MEDS: SODIUM CHLORIDE 0.9% 1000 ML 1,000 ML IV SCH (14:02)
[2020-03-31] MEDS ORDERED: carvediloL 6.25 MG TAB ONE (14:27)
[2020-03-31] MEDS: MORPHINE 4 MG/1 ML INJ IV PRN ×3 (14:30→22:20)
[2020-03-31] MEDS ORDERED: MORPHINE 2 MG/1 ML INJ ONE ×2 (14:37→18:06)
--- NOTE | 2020-03-31 14:51 | Consultation ---
History of Present Illness - Reason for Consult acute renal failure - History of Present Illness Pleasant 54 y/o male with PMHx significant for CKD, HTN, CHF, kidney stones, presented to the ED secondary to worsening shortness of breath and concern for possible CHF exacerbation. Initial labs indicated and JEANNIE on CKD with serum BUN/Creatinine of 107/7.1 in comparison to labs done 10 months prior showing BUN/Creatinine of 24/2.6. UA concerning for possible UTI. Chest xray was clear. [place] [id number]. Cardiology evaluation noted and ECHO was done this morning, with results pending at this time. Patient has been started on antibiotics and gentle IVF hydration with NS at 75 cc/hr. His repeat labs indicate BUN/Creat of 105/6.4. His current respiratory status is stable, as he is on room air, and currently oxygenating 98-100%. Nephrology consulted at this time for further management of JEANNIE on CKD. Past History Past Medical History: COPD, heart failure, hypertension, other (History of kidney stone,TB) Past Surgical History: Other (Lithotripsy in the past) Social history: smoking (Daily smoker), alcohol abuse, other (marijuana use) Family history: no significant family history Medications and Allergies Allergies Allergy/AdvReac Type Severity Reaction Status Date / Time Sulfa (Sulfonamide Allergy Hives Verified 06/02/19 23:12 Antibiotics) sulfamethoxazole Allergy Hives Verified 06/02/19 23:12 [From Bactrim] trimethoprim [From Bactrim] Allergy Hives Verified 06/02/19 23:12 Home Medications Medication Instructions Recorded Confirmed Last Taken Type Ciprofloxacin HCl [Ciprofloxacin 500 mg PO BID 10 Days #20 tab 06/03/19 Unknown Rx TAB] Omeprazole 40 mg PO DAILY #30 capsule. 06/03/19 Unknown Rx Tamsulosin [Flomax] 0.4 mg PO QDAY #12 cap 06/03/19 Unknown Rx amLODIPine 10 mg PO DAILY #30 tab 06/03/19 Unknown Rx traMADoL [Ultram] 50 mg PO Q6HR PRN #12 tablet 06/03/19 Unknown Rx Active Meds: Active Medications Acetaminophen (Tylenol) 650 mg PO Q4H PRN PRN Reason: Pain MILD(1-3)/Fever >100.5/SINGH Aspirin (Ecotrin) 325 mg PO QDAY JULIENNE Carvedilol (Coreg) 6.25 mg PO BID [facility] Last Admin: 03/31/20 13:15 Dose: 6.25 mg Documented by: Hydralazine HCl (Apresoline) 25 mg PO Q8HR [facility] Ceftriaxone Sodium (Rocephin/Ns 1 Gm/50 Ml) 1 gm in 50 mls @ 100 mls/hr IV Q24HR [facility]; Protocol Last Admin: 03/31/20 10:05 Dose: 100 mls/hr Documented by: Sodium Chloride (Nacl 0.9% 1000 Ml) 1,000 mls @ 75 mls/hr IV DIRECT [facility] Last Admin: 03/31/20 14:02 Dose: 75 mls/hr Documented by: Heparin Sodium/Sodium Chloride (Heparin/ 0.45% Nacl-25,000 Unit/500 Ml) 25,000 unit in 500 mls @ 20 mls/hr IV TITRATE [facility]; Protocol Last Admin: 03/31/20 12:25 Dose: 1,000 units/hr, 20 mls/hr Documented by: Magnesium Hydroxide (Milk Of Magnesia) 30 ml PO Q4H PRN PRN Reason: Constipation Morphine Sulfate (Morphine) 2 mg IV Q5MIN PRN PRN Reason: Chest Pain Last Admin: 03/31/20 14:30 Dose: 2 mg Documented by: Nitroglycerin (Nitrostat) 0.4 mg SL Q5M PRN PRN Reason: Chest Pain Ondansetron HCl (Zofran) 4 mg IV Q8H PRN PRN Reason: Nausea And Vomiting Sodium Chloride (Sodium Chloride Flush Syringe 10 Ml) 10 ml IV BID [facility] Last Admin: 03/31/20 10:06 Dose: 10 ml Documented by: Sodium Chloride (Sodium Chloride Flush Syringe 10 Ml) 10 ml IV PRN PRN PRN Reason: LINE FLUSH Review of Systems All systems: negative Constitutional: fatigue, weakness Cardiovascular: shortness of breath Exam - Vital Signs Vital signs: Vital Signs Temp Pulse Resp BP Pulse Ox 98.3 F 79 22 142/102 98 03/30/20 21:48 03/30/20 21:48 03/30/20 21:48 03/30/20 21:48 03/30/20 21:48 - General Appearance General appearance: well-developed, well-nourished, appears stated age EENT: ATNC, PERRL Neck: Present: neck supple Respiratory: Clear to Ascultation Heart: regular, S1S2 Gastrointestinal: Present: normal Integumentary: no rash, warm and dry Neurologic: no focal deficit Musculoskeletal: Present: deferred Psychiatric: cooperative Results - Lab Results 03/31/20 07:23 03/31/20 01:30 Most recent lab results Calcium 8.6 mg/dL (8.4-10.2) 03/31/20 01:30 - Image Kidney/bladder ultrasound: report reviewed Assessment and Plan - Patient Problems (1) Acute kidney injury superimposed on CKD Current Visit: Yes Status: Acute Plan to address problem: Pre-renal vs ATN in the setting of UTI. He has what seems to be CKD IV based on previous labs. He has no acute indications for renal replacement therapy at this time, but he needs to be monitored very closely. Renal US essentially shows atrophic left kidney and evidence of medical renal disease, otherwise no other acute abnormalities. Given his current stable respiratory status, and clear chest xray, agree with careful gentle hydration with NS @ 75 cc/hr. Need to closely monitor respiratory status to avoid worsening shortness of breath or edema as we hydrate. Strict I/O discussed with nursing staff. Will add urine electrolytes for further evaluation. Avoid all nephrotoxins. (2) Chronic CHF (congestive heart failure) Current Visit: Yes Status: Chronic Plan to address problem: Based on his presentation, clinical examination and review of chest xray, he does not seem to be sigificantly volume overloaded. Will follow up with his ECHO that he had done this afternoon. Agree with careful hydration, now started with NS at 75 cc/hr. Will monitor closely. Strict I/O. Follow up further recommendations per cardiology. (3) UTI (urinary tract infection) Current Visit: Yes Status: Acute Plan to address problem: Antibiotic management per primary attending. Please ensure that antibiotics are dosed for his decreased renal function. (4) Hypertensive chronic kidney disease with stage 1 through stage 4 chronic kidney disease, or unspecified chronic kidney disease Current Visit: Yes Status: Chronic Plan to address problem: Monitor on current regimen. (5) Methamphetamine abuse Current Visit: Yes Status: Acute Plan to address problem: Counseled patient on the importance of cessation.
[2020-03-31] MEDS ORDERED: hydrALAZINE 25 MG TAB ONE (15:24)
[2020-03-31] MEDS: SODIUM BICARBONATE 650 MG TAB PO SCH (21:26)
[2020-03-31] MEDS: HEPARIN 5,000 UNIT/1 ML VIAL SUB-Q SCH (21:26)
[2020-03-31] MEDS: ISOSORB DINIT/HYDRALAZINE 20-37.5MG TAB PO SCH (21:26)
[2020-04-01 04:53] LABS: Basophils % (Auto) 1.5 % (0.0-1.8); Hematocrit 29.2 % (35.5-45.6); Hemoglobin 9.8 gm/dl (11.8-15.2); Lymphocytes # (Auto) 0.6 K/mm3 (1.2-5.4); Lymphocytes % (Auto) 20.5 % (13.4-35.0); Mean Corpuscular HGB Conc 34 % (32-34); Mean Corpuscular Volume 89 fl (84-94); Monocytes # (Auto) 0.4 K/mm3 (0.0-0.8); Monocytes % (Auto) 11.5 % (0.0-7.3); Platelet Count 118 K/mm3 (140-440); Red Blood Count 3.28 M/mm3 (3.65-5.03); Red Cell Distribution Width 16.9 % (13.2-15.2)
[2020-04-01 04:59] LABS: INR 1.13 (0.87-1.13)
[2020-04-01 05:00] LABS: Partial Thromboplastin Time 33.2 Sec. (24.2-36.6)
[2020-04-01 05:03] LABS: Calcium 8.6 mg/dL (8.4-10.2)
[2020-04-01] MEDS: SODIUM CHLORIDE 0.9% 1000 ML 1,000 ML IV SCH ×2 (05:13→20:29)
[2020-04-01] MEDS: ISOSORB DINIT/HYDRALAZINE 20-37.5MG TAB PO SCH ×3 (05:20→21:26)
[2020-04-01] MEDS: ONDANSETRON 4 MG/2 ML INJ IV PRN ×2 (05:25→20:29)
--- NOTE | 2020-04-01 09:40 | Progress Note ---
Assessment and Plan - Patient Problems (1) Acute on chronic systolic heart failure Current Visit: Yes Status: Acute Plan to address problem: The patient was admitted with symptoms of acute on chronic systolic heart failure, due to admitted noncompliance with medical therapy, outpatient doctor visits and dietary salt restrictions. On this presentation, his echocardiogram shows a left ventricular ejection fraction of 20 to 25%. He has severe renal failure with current creatinine of 6.4. We will optimize guideline directed medical therapy as tolerated for his chronic systolic left ventricular failure. Nephrology has recommended intravenous hydration, should be done judiciously due to patient's presentation with fluid overload and the presence of severe left ventricular dysfunction. (2) Ascending aortic aneurysm Current Visit: Yes Status: Acute Plan to address problem: The ascending aorta is dilated, measures 5.2 to 5.5 cm. Following full assessment and optimization of the renal status, he will need further CT surgery evaluation of the dilated ascending aorta. Subjective Date of service: 04/01/20 Interval history: The patient is comfortable, no new cardiac complaints. Objective Vital Signs Temp Pulse Resp BP BP Pulse Ox 04/01/20 08:04 80 98 04/01/20 03:38 97.7 F 78 18 133/90 100 04/01/20 00:00 77 03/31/20 23:14 97.9 F 78 18 108/63 95 03/31/20 20:47 70 03/31/20 20:32 97.9 F 68 18 160/100 79 L 03/31/20 19:40 17 139/97 97 03/31/20 19:30 17 139/97 100 03/31/20 19:20 78 17 139/97 98 03/31/20 19:10 75 16 139/97 99 03/31/20 19:00 81 15 139/97 99 03/31/20 18:50 79 21 143/95 99 03/31/20 18:40 79 19 143/95 97 03/31/20 18:30 79 18 143/95 99 03/31/20 18:20 74 14 143/95 99 03/31/20 18:10 80 18 143/95 98 03/31/20 18:08 22 03/31/20 18:00 78 15 143/95 100 03/31/20 17:50 78 18 137/91 99 03/31/20 17:40 81 27 H 137/91 100 05/15/20 17:30 78 15 137/91 99 05/15/20 17:20 77 16 137/91 99 05/15/20 17:10 65 15 137/91 97 05/15/20 17:00 73 14 137/91 98 05/15/20 16:50 71 18 138/93 98 05/15/20 16:40 75 16 138/93 97 05/15/20 16:30 75 18 138/93 97 05/15/20 16:24 76 18 138/92 100 05/15/20 16:20 75 16 138/93 95 05/15/20 16:10 75 15 138/93 97 05/15/20 16:00 75 14 138/93 99 05/15/20 15:50 75 14 145/94 97 05/15/20 15:40 75 16 145/94 98 05/15/20 15:30 72 15 145/94 99 05/15/20 15:24 74 144/74 05/15/20 15:20 74 18 145/94 98 05/15/20 15:10 67 17 145/94 95 05/15/20 15:00 72 13 145/94 98 05/15/20 14:50 74 17 125/79 99 05/15/20 14:40 75 16 125/79 100 05/15/20 14:30 74 9 L 125/79 100 05/15/20 14:20 73 15 125/79 98 05/15/20 14:10 73 18 125/79 99 05/15/20 14:00 75 17 125/79 96 05/15/20 13:50 74 15 149/98 98 05/15/20 13:40 75 16 149/98 98 05/15/20 13:30 74 18 149/98 99 05/15/20 13:20 73 18 149/98 100 05/15/20 13:15 78 124/78 05/15/20 13:10 69 17 149/98 100 05/15/20 13:00 76 18 149/98 99 05/15/20 12:50 77 20 139/83 100 05/15/20 12:40 74 18 139/83 100 05/15/20 12:30 74 18 139/83 100 05/15/20 12:20 74 17 139/83 100 05/15/20 12:10 72 19 139/83 100 05/15/20 12:00 67 20 139/83 100 03/31/20 11:50 74 21 135/89 100 03/31/20 11:40 75 22 135 100 - Physical Examination General: No Apparent Distress HEENT: Positive: PERRL Neck: Positive: neck supple Cardiac: Positive: Reg Rate and Rhythm Lungs: Positive: Decreased Breath Sounds Neuro: Positive: Grossly Intact Abdomen: Positive: Soft Skin: Positive: Clear Extremities: Absent: edema - Labs and Meds Coagulation 04/01/20 Range/Units 04:06 PT 14.6 (12.2-14.9) Sec. INR 1.13 (0.87-1.13) APTT 33.2 (24.2-36.6) Sec. CBC 04/01/20 Range/Units 04:06 WBC 3.1 L (4.5-11.0) K/mm3 RBC 3.28 L (3.65-5.03) M/mm3 Hgb 9.8 L (11.8-15.2) gm/dl Hct 29.2 L (35.5-45.6) % Plt Count 118 L (140-440) K/mm3 Lymph # 0.6 L (1.2-5.4) K/mm3 [place] # 0.4 (0.0-0.8) K/mm3 Eos # 0.0 (0.0-0.4) K/mm3 Baso # 0.0 (0.0-0.1) K/mm3 Comprehensive Metabolic Panel 04/01/20 Range/Units 04:06 Sodium 134 L (137-145) mmol/L Potassium 3.9 (3.6-5.0) mmol/L Chloride 102.8 (98-107) mmol/L Carbon Dioxide 18 L (22-30) mmol/L BUN 89 H (9-20) mg/dL Creatinine 5.4 H (0.8-1.5) mg/dL Glucose 115 H (75-100) mg/dL Calcium 8.6 (8.4-10.2) mg/dL
[2020-04-01] MEDS: carvediloL 6.25 MG TAB PO SCH ×2 (10:02→21:25)
[2020-04-01] MEDS: ASPIRIN EC 325 MG TAB PO SCH (10:02)
[2020-04-01] MEDS: SODIUM BICARBONATE 650 MG TAB PO SCH ×3 (10:02→21:25)
[2020-04-01] MEDS: cefTRIAXone/NS 1 GM/50 ML 1 GM/50 ML BAG IV SCH (10:02)
[2020-04-01] MEDS: HEPARIN 5,000 UNIT/1 ML VIAL SUB-Q SCH ×2 (10:03→21:26)
--- NOTE | 2020-04-01 10:06 | Progress Note ---
Assessment and Plan Assessment and plan: Acute on CKD. Patient appears to have a baseline creatinine of 2.6 in May 2019. However, patient presents to the emergency department with a creatinine of greater than 7. Nephrology following. Renal ultrasound shows evidence of medical renal disease. No evidence of obstruction or hydronephrosis. Continue to monitor BMP. Acute on chronic systolic heart failure. Echocardiogram on this admission reveals EF 20 to 25% Chest pain. Patient does have elevated troponin. However, this may be related to renal insufficiency. Continue to monitor cardiac isoenzymes. An ECG is sinus rhythm with a LBBB. Chest pain pathway. Cardiology consulted and cardiac evaluation per their recommendation. Ascending aortic aneurysm. Aneurysm measures 5.2 to 5.5 cm. Methamphetamine abuse. Patient has been counseled on cessation. Withdrawal protocols. Acute psychosis. Nurse reports patient with auditory hallucinations. Psychiatric consultation. 04/01/2020. Optimize guideline directed medical therapy for heart failure per cardiology recommendations. Nephrology recommends gentle IV fluid hydration given the acute kidney injury. Await psychiatry consultation for auditory hallucinations. Cardiology recommends further follow-up with CT surgery evaluation when stable History Interval history: No new issues overnight. Hospitalist Physical - Constitutional Vitals: Temp Pulse Resp BP Pulse Ox 98 F 80 18 130/79 98 04/01/20 08:00 04/01/20 08:04 04/01/20 08:00 04/01/20 08:00 04/01/20 08:04 General appearance: Present: no acute distress - EENT Eyes: Present: PERRL, EOM intact ENT: hearing intact, clear oral mucosa, dentition normal - Neck Neck: Present: supple, normal ROM - Respiratory Respiratory effort: normal Respiratory: bilateral: CTA - Cardiovascular Rhythm: regular Heart Sounds: Present: S1 & S2. Absent: gallop, rub - Extremities Extremities: no ischemia, No edema, Full ROM - Abdominal General gastrointestinal: soft, non-tender, non-distended, normal bowel sounds - Integumentary Integumentary: Present: clear, warm, dry - Neurologic Neurologic: CNII-XII intact, moves all extremities HEART Score - HEART Score EKG: Non-specific Age: 45-65 Risk factors: 1-2 risk factors Troponin: Troponin T 0.123 ng/mL (0.00-0.029) H* 03/31/20 07:02 Troponin: 1-3x normal limit Results - Labs CBC & Chem 7: 04/01/20 04:06 04/01/20 04:06 Labs: Laboratory Last Values WBC 3.1 K/mm3 (4.5-11.0) L 04/01/20 04:06 RBC 3.28 M/mm3 (3.65-5.03) L 04/01/20 04:06 Hgb 9.8 gm/dl (11.8-15.2) L 04/01/20 04:06 Hct 29.2 % (35.5-45.6) L 04/01/20 04:06 MCV 89 fl (84-94) 04/01/20 04:06 MCH 30 pg (28-32) 04/01/20 04:06 MCHC 34 % (32-34) 04/01/20 04:06 RDW 16.9 % (13.2-15.2) H 04/01/20 04:06 Plt Count 118 K/mm3 (140-440) L 04/01/20 04:06 Lymph % (Auto) 20.5 % (13.4-35.0) 04/01/20 04:06 Nolan % (Auto) 11.5 % (0.0-7.3) H 04/01/20 04:06 Eos % (Auto) 1.0 % (0.0-4.3) 04/01/20 04:06 Baso % (Auto) 1.5 % (0.0-1.8) 04/01/20 04:06 Lymph # 0.6 K/mm3 (1.2-5.4) L 04/01/20 04:06 Nolan # 0.4 K/mm3 (0.0-0.8) 04/01/20 04:06 Eos # 0.0 K/mm3 (0.0-0.4) 04/01/20 04:06 Baso # 0.0 K/mm3 (0.0-0.1) 04/01/20 04:06 Seg Neutrophils % 65.5 % (40.0-70.0) 04/01/20 04:06 Seg Neutrophils # 2.0 K/mm3 (1.8-7.7) 04/01/20 04:06 PT 14.6 Sec. (12.2-14.9) 04/01/20 04:06 INR 1.13 (0.87-1.13) 04/01/20 04:06 APTT 33.2 Sec. (24.2-36.6) 04/01/20 04:06 Heparin Anti-Xa Level 0.10 U.I./ml (0.3-0.7) L 03/31/20 20:06 Sodium 134 mmol/L (137-145) L 04/01/20 04:06 Potassium 3.9 mmol/L (3.6-5.0) 04/01/20 04:06 Chloride 102.8 mmol/L (98-107) 04/01/20 04:06 Carbon Dioxide 18 mmol/L (22-30) L 04/01/20 04:06 Anion Gap 17 mmol/L 04/01/20 04:06 BUN 89 mg/dL (9-20) H 04/01/20 04:06 Creatinine 5.4 mg/dL (0.8-1.5) H 04/01/20 04:06 Estimated GFR 11 ml/min 04/01/20 04:06 BUN/Creatinine Ratio 16 % 04/01/20 04:06 Glucose 115 mg/dL (75-100) H 04/01/20 04:06 Calcium 8.6 mg/dL (8.4-10.2) 04/01/20 04:06 Troponin T 0.123 ng/mL (0.00-0.029) H* 03/31/20 07:02 NT-Pro-B Natriuret Pep > 42955 pg/mL (0-900) H 03/30/20 21:57 Triglycerides 133 mg/dL (2-149) 03/30/20 21:57 Cholesterol 166 mg/dL (50-199) 03/30/20 21:57 LDL Cholesterol Direct 119 mg/dL (50-130) 03/30/20 21:57 HDL Cholesterol 26 mg/dL (40-59) L 03/30/20 21:57 Cholesterol/HDL Ratio 6.38 % 03/30/20 21:57 Urine Color Yellow (Yellow) 03/31/20 00:29 Urine Turbidity Slightly-cloudy (Clear) 03/31/20 00:29 Urine pH 5.0 (5.0-7.0) 03/31/20 00:29 Ur Specific [place] 1.016 (1.003-1.030) 03/31/20 00:29 Urine Protein 100 mg/dl mg/dL (Negative) 03/31/20 00: Urine Glucose (UA) Neg mg/dL (Negative) 03/31/20 00: Urine Ketones Neg mg/dL (Negative) 03/31/20 00: Urine Blood Lg (Negative) 03/31/20 00: Urine Nitrite Neg (Negative) 03/31/20 00: Urine Bilirubin Neg (Negative) 03/31/20 00: Urine Urobilinogen < 2.0 mg/dL (<2.0) 03/31/20 00:29 Ur Leukocyte Esterase Mod (Negative) 03/31/20 00: Urine WBC (Auto) 138.0 /HPF (0.0-6.0) H 03/31/20: Urine RBC (Auto) 116.0 /HPF (0.0-6.0) 03/31/20 00: U Epithel Cells (Auto) < 1.0 /HPF (0-13.0) 03/31/20: Urine Bacteria (Auto) 2+ /HPF (Negative) 03/31/20 00: Urine WBC Clumps 2+ /HPF 03/31/20 00: Urine Mucus Few /HPF 03/31/20 00: Urine Opiates Screen Presumptive negative 03/31/20 00: Urine Methadone Screen Presumptive negative 03/31/20 00:29 Ur Barbiturates Screen Presumptive negative 03/31/20 00:29 Ur Phencyclidine Scrn Presumptive negative 03/31/20 00:29 Ur Amphetamines Screen Presumptive positive 03/31/20 00: U Benzodiazepines Scrn Presumptive negative 03/31/20 00:29 Urine Cocaine Screen Presumptive negative 03/31/20 00: U Marijuana (THC) Screen Presumptive positive 03/31/20 00: Drugs of Abuse Note Disclamer 03/31/20 00:29 - Diagnostic Impressions Diagnostic Impressions: Echocardiogram 03/31/20 01:22 Transthoracic Echocardiogram Indication: Chest pain BP: 130/83 HR: 72 Conclusions *There is an aneurysm of the ascending aorta, which measures 5.2-5.5 cm above the sinuses of valsalva. *Severe, 4-chamber dilated cardiomyopathy. *Global left ventricular systolic function is severely decreased. *The estimated ejection fraction is 20-25%. *Mild to moderate concentric left ventricular hypertrophy is observed. *There is mild to moderate mitral regurgitation. *There is mild aortic stenosis with amean gradient of 10. *There is mild aortic regurgitation. *There is moderate tricuspid regurgitation. *There is evidence of mild pulmonary hypertension with a PASP of 34. *A trivial pericardial effusion is visualized. Findings Left Ventricle: The left ventricular size is moderate to severely dilated. Mild to moderate concentric left ventricular hypertrophy is observed. Global left ventricular systolic function is severely decreased. The estimated ejection fraction is 20-25%. Left Atrium: The left atrium is severely dilated. Right Ventricle: The right ventricle is moderate to severely dilated. The right ventricular global systolic function is severely reduced. Right Atrium: The right atrium is moderate to severely dilated. Aortic Valve: The aortic valve is trileaflet. The aortic valve leaflets are moderately thickened. There is mild aortic regurgitation. There is mild aortic stenosis. The mean gradient of the aortic valve is 9.7 mmHg. Mitral Valve: The mitral valve leaflets are moderately thickened. There is mild to moderate mitral regurgitation. There is no evidence of mitral stenosis. Tricuspid Valve: There is moderate tricuspid regurgitation. The right ventricular systolic pressure is calculated at 34 mmHg. There is evidence of mild pulmonary hypertension. Pulmonic Valve: There is mild pulmonic regurgitation. Pericardium: A trivial pericardial effusion is visualized. Aorta: There is moderate dilatation of the ascending aorta. There is mild dilatation of the aortic root. There is an aneurysm in the ascending aorta. Venous: The inferior vena cava is dilated. Measurements Chambers 2D Name Value Normal Range IVSd (2D) 1.34 cm (0.6 - 1.1) LVPWd (2D) 1.33 cm (0.6 - 1.1) LVIDd (2D) 6 cm (3.7 - 5.6) LVIDs (2D) 5.01 cm (2 - 3.8) LV FS (2D) 16.48 % - EF Teichholz (2D) 33.97 % - Ao root diameter (2D) 4.05 cm (2 - 3.7) Volumes/Mass Name Value Normal Range LA ESV SP 4CH (A/L) 96.08 ml - LA ESV SP 2CH (A/L) 101.58 ml - LA ESV BP (A/L) 99.21 ml - LA ESV BP (A/L) index 48.16 ml/m2 - LA ESV SP 4CH (MOD) 92.31 ml - LA ESV SP 2CH (MOD) 97.78 ml - LA ESV BP (MOD) 95.38 ml - LA ESV BP (MOD) index 46.3 ml/m2 - Diastolic/Systolic Function Name Value Normal Range MV E-wave Vmax 0.92 m/sec - MV deceleration time 176.87 msec - MV A-wave Vmax 0.44 m/sec - MV E:A ratio 2.09 ratio - Aortic Valve Name Value Normal Range AV Vmax 2.21 m/sec - AV VTI 41.47 cm - AV peak gradient 19.48 mmHg - AV mean gradient 9.7 mmHg - LVOT diameter 2.2 cm - LVOT Vmax 0.86 m/sec - LVOT VTI 19.02 cm - LVOT peak gradient 2.94 mmHg - LVOT mean gradient 1.78 mmHg - SV LVOT 72.27 ml - BOBBI (continuity Vmax) 1.47 cm2 - BOBBI (continuity VTI) 1.74 cm2 - AR PHT 452.76 msec - AR peak gradient 90.78 mmHg - Ascending Ao 5.22 cm - Mitral Valve Name Value Normal Range MR Vmax 4.75 m/sec - Tricuspid Valve Name Value Normal Range TR Vmax 2.56 m/sec - TR peak gradient 26.25 mmHg - RAP 8 mmHg - RVSP 34 mmHg - IVC diameter 2.97 cm (1.2 - 2.3) Pulmonic Valve/Qp:Qs Name Value Normal Range PV Vmax 0.77 m/sec - PV peak gradient 2.38 mmHg - IN end-diastolic Vmax 0.66 m/sec - PV acceleration time 156.04 msec - Johnson/IV: Voiding Method Toilet IV Catheter Type [Left INT / Saline Lock Antecubital] Active Medications - Current Medications Current Medications: Generic Name Dose Route Start Last Admin Trade Name Freq PRN Reason Stop Dose Admin Acetaminophen 650 mg 03/31/20 01:07 Tylenol PO Q4H PRN Pain MILD(1-3)/Fever >100.5/SINGH Aspirin 325 mg 04/01/20 10:00 Ecotrin PO QDAY JULIENNE Carvedilol 6.25 mg 03/31/20 13:00 03/31/20 21:26 Coreg PO 6.25 mg BID JULIENNE Administration Heparin Sodium (Porcine) 5,000 unit 03/31/20 22:00 03/31/20 21:26 Heparin SUB-Q 5,000 unit Q12HR JULIENNE Administration Ceftriaxone Sodium 1 gm in 50 mls @ 100 mls/hr 03/31/20 10:00 03/31/20 10:05 Rocephin/Ns 1 Gm/50 Ml IV 100 mls/hr Q24HR JULIENNE Administration Protocol Sodium Chloride 1,000 mls @ 75 mls/hr 03/31/20 01:15 04/01/20 05:13 Nacl 0.9% 1000 Ml IV 75 mls/hr DIRECT JULIENNE Administration Isosorbide Dinitrate/Hydralazine 1 each 03/31/20 22:00 04/01/20 05:20 Bidil 20/37.5mg PO 1 each Q8HR JULIENNE Administration Magnesium Hydroxide 30 ml 03/31/20 01:07 Milk Of Magnesia PO Q4H PRN Constipation Morphine Sulfate 2 mg 03/31/20 01:07 03/31/20 22:20 Morphine IV 2 mg Q5MIN PRN Administration Chest Pain Nitroglycerin 0.4 mg 03/31/20 01:07 Nitrostat SL Q5M PRN Chest Pain Ondansetron HCl 4 mg 03/31/20 01:07 04/01/20 05:25 Zofran IV 4 mg Q8H PRN Administration Nausea And Vomiting Sodium Bicarbonate 650 mg 03/31/20 20:00 03/31/20 21:26 Sodium Bicarbonate PO 650 mg TID JULIENNE Administration Sodium Chloride 10 ml 03/31/20 10:00 03/31/20 21:26 Sodium Chloride Flush Syringe 10 Ml IV 10 ml BID JULIENNE Administration Sodium Chloride 10 ml 03/31/20 01:07 Sodium Chloride Flush Syringe 10 Ml IV PRN PRN LINE FLUSH
--- NOTE | 2020-04-01 10:20 | Progress Note ---
Assessment and Plan - Patient Problems (1) Acute kidney injury superimposed on CKD Current Visit: Yes Status: Acute Plan to address problem: Pre-renal vs ATN in the setting of UTI. He has what seems to be CKD IV based on previous labs. He has no acute indications for renal replacement therapy at this time, renal function improving on IVF Renal US essentially shows atrophic left kidney and evidence of medical renal disease, otherwise no other acute abnormalities. Strict I/O discussed with nursing staff. check urine electrolytes for further evaluation. Avoid all nephrotoxins. (2) Chronic CHF (congestive heart failure) Current Visit: Yes Status: Chronic Plan to address problem: Based on his presentation, clinical examination and review of chest xray, he does not seem to be sigificantly volume overloaded. Will follow up with his ECHO report careful hydration with NS at 75 cc/hr. Will monitor closely. Strict I/O. Follow up further recommendations per cardiology. (3) UTI (urinary tract infection) Current Visit: Yes Status: Acute Plan to address problem: Antibiotic management per primary attending. Please ensure that antibiotics are dosed for his decreased renal function. (4) Hypertensive chronic kidney disease with stage 1 through stage 4 chronic kidney disease, or unspecified chronic kidney disease Current Visit: Yes Status: Chronic Plan to address problem: Monitor on current regimen. (5) Methamphetamine abuse Current Visit: Yes Status: Acute Plan to address problem: Counseled patient on the importance of cessation. Subjective Date of service: 04/01/20 Principal diagnosis: JEANNIE Interval history: patient awake, alert, in no acute distress Objective - Vital Signs Vital signs: Vital Signs - 12hr 03/31/20 04/01/20 04/01/20 23:14 00:00 03:38 Temperature 97.9 F 97.7 F Pulse Rate 78 77 78 Respiratory 18 18 Rate Blood Pressure 108/63 133/90 Blood Pressure [Right] O2 Sat by Pulse 95 100 Oximetry 04/01/20 04/01/20 08:00 08:04 Temperature 98 F Pulse Rate 79 80 Respiratory 18 Rate Blood Pressure Blood Pressure 130/79 [Right] O2 Sat by Pulse 98 Oximetry - General Appearance General appearance: well-developed, well-nourished, appears stated age EENT: ATNC, PERRL, mucous membranes moist Neck: no JVD Respiratory: Present: Clear to Ascultation Cardiology: regular, S1S2 Gastrointestinal: normoactive bowel sounds Integumentary: no rash, other (no edema ) Neurologic: no focal deficit, alert and oriented x3, strength 5/5, CN 3-12 intact Psychiatric: mood/affect appropriate, cooperative - Lab 04/01/20 04:06 04/01/20 04:06 Most recent lab results Calcium 8.6 mg/dL (8.4-10.2) 04/01/20 04:06 Medications & Allergies - Medications Allergies/Adverse Reactions: Allergies Sulfa (Sulfonamide Antibiotics) Allergy (Verified 06/02/19 23:12) Hives sulfamethoxazole [From Bactrim] Allergy (Verified 06/02/19 23:12) Hives trimethoprim [From Bactrim] Allergy (Verified 06/02/19 23:12) Hives Home Medications: Home Medications Medication Instructions Recorded Confirmed Last Taken Type Ciprofloxacin HCl [Ciprofloxacin 500 mg PO BID 10 Days #20 tab 06/03/19 Unknown Rx TAB] Omeprazole 40 mg PO DAILY #30 capsule. 06/03/19 Unknown Rx Tamsulosin [Flomax] 0.4 mg PO QDAY #12 cap 06/03/19 Unknown Rx amLODIPine 10 mg PO DAILY #30 tab 06/03/19 Unknown Rx traMADoL [Ultram] 50 mg PO Q6HR PRN #12 tablet 06/03/19 Unknown Rx Active Medications: Generic Name Dose Route Start Last Admin Trade Name Freq PRN Reason Stop Dose Admin Acetaminophen 650 mg 03/31/20 01:07 Tylenol PO Q4H PRN Pain MILD(1-3)/Fever >100.5/SINGH Aspirin 325 mg 04/01/20 10:00 04/01/20 10:02 Ecotrin PO 325 mg QDAY JULIENNE Administration Carvedilol 6.25 mg 03/31/20 13:00 04/01/20 10:02 Coreg PO 6.25 mg BID JULIENNE Administration Heparin Sodium (Porcine) 5,000 unit 03/31/20 22:00 04/01/20 10:03 Heparin SUB-Q 5,000 unit Q12HR JULIENNE Administration Ceftriaxone Sodium 1 gm in 50 mls @ 100 mls/hr 03/31/20 10:00 04/01/20 10:02 Rocephin/Ns 1 Gm/50 Ml IV 100 mls/hr Q24HR JULIENNE Administration Protocol Sodium Chloride 1,000 mls @ 75 mls/hr 03/31/20 01:15 04/01/20 05:13 Nacl 0.9% 1000 Ml IV 75 mls/hr DIRECT JULIENNE Administration Isosorbide Dinitrate/Hydralazine 1 each 03/31/20 22:00 04/01/20 05:20 Bidil 20/37.5mg PO 1 each Q8HR JULIENNE Administration Magnesium Hydroxide 30 ml 03/31/20 01:07 Milk Of Magnesia PO Q4H PRN Constipation Morphine Sulfate 2 mg 03/31/20 01:07 03/31/20 22:20 Morphine IV 2 mg Q5MIN PRN Administration Chest Pain Nitroglycerin 0.4 mg 03/31/20 01:07 Nitrostat SL Q5M PRN Chest Pain Ondansetron HCl 4 mg 03/31/20 01:07 04/01/20 05:25 Zofran IV 4 mg Q8H PRN Administration Nausea And Vomiting Sodium Bicarbonate 650 mg 03/31/20 20:00 04/01/20 10:02 Sodium Bicarbonate PO 650 mg TID JULIENNE Administration Sodium Chloride 10 ml 03/31/20 10:00 03/31/20 21:26 Sodium Chloride Flush Syringe 10 Ml IV 10 ml BID JULIENNE Administration Sodium Chloride 10 ml 03/31/20 01:07 Sodium Chloride Flush Syringe 10 Ml IV PRN PRN LINE FLUSH
--- NOTE | 2020-04-01 11:38 | Consultation ---
History of Present Illness - Reason for Consult Consult date: 04/01/20 Reason for consult: MHE Requesting physician: LISA MATTHEW - Chief Complaint Chief complaint: Hallucination - History of Present Psychiatric Illness Per Nurse Note: While initiating the heparin drip for this patient he stated that he hears voices and people trying get him. He keep referring to being in long-term and inmates want to kill him. I calmed the patient and reassured his safety. He started to calm himself and asked for his psychosis medications. I made Dr. Matthew aware of this situation and he indicated to me that he would order a psychiatric evaluation for the patient. HPI Patient is a 54-year-old unemployed male with past psychiatric history of schizophrenia, depression status post not currently on any medication who presented to hospital for management of chest pain and blood in urine, commended for psych consult due to hallucination reported by the nurse. Patient reported to come to the hospital for blood in urine but does not know why he is actually here in his room and states that he is angry right now because he is confused, in pain had just woken up. Patient reports that he has almost everything with nothing specific sometimes he feels like there are also things that he is not seeing, creeping up on him by the corner. Patient endorses drug use for at least 30 years with recent relapse, but does not say specifically what he had used. Patient is very irritated and not wanting to be further questioned. Patient got very angry when nurse presented Tylenol for pain management. Patient also reports been in [facility] for more 20 years, which messed is life up and increase is anxiety about surroundings due to fear of someone coming around to kill him. UDS positive for meth and marijuanna PAST PSYCHIATRIC HISTORY Diagnoses: Schizophrenia, depression Suicide attempts or Self-harm behavior: None reported Prior psychiatric hospitalizations: None reported Substance Abuse history: Yes Previous psychiatric medications tried: Yes but non compliance Outpatient treatment: None reported PAST MEDICAL HISTORY: CHF Family Psychiatric History: None reported or documented SOCIAL HISTORY Marital Status: Living Arrangements: With roomies Employment Status: employed Access to guns/weapons: None reported Education: GED History of Abuse: None reported Legal History: Yes, jailed REVIEW OF SYSTEMS Constitutional: Negative for weight loss ENT: Negative for stridor Respiratory: Negative for cough or hemoptysis All other systems reviewed and are negative MENTAL STATUS EXAMINATION General Appearance and Behavior: Age appropriate, good hygiene, wearing appropriate clothes, poor eye contact, minimal engagement Cooperation: Hostile and Guarded Psychomotor Behavior: unremarkable and within normal limits Mood: unknown Affect and affective range: Angry, anxious, constricted, decreased range, depressed Thought Process: Circumstantial, Perseverative, Blocked Thought Content: Hallucinations Speech: Normal volume, Regular rate and rhythm, pressured, loud volume, soft volume, stutter, paucity of speech, difficulty to understand, abnormalities in production of speech, confused and blocking Intellectual Functioning: Average Suicidal Ideation: Denies SI Homicidal Ideation: Denies HI Impulse Control: Unimpaired Insight and Judgment: Normal insight and judgment Memory: Normal Attention: Normal Orientation: Alert, oriented, anxious Assessment and Plan - Psychiatric problem (1) Substance use disorder Current Visit: Yes Status: Acute (2) Substance induced mood disorder Current Visit: Yes Status: Acute (3) Schizoaffective disorder, bipolar type Current Visit: Yes Status: Acute (4) Nonadherence to medication Current Visit: Yes Status: Acute RECOMMENDATIONS Patient has poor renal and Heart disease, limiting pharmacological therapies. MEDICATIONS: Will start on Olazanpine, no renal adjustment needed low dose. Risks, benefits and alternatives of medications discussed with the patient, questions answered and consent obtained from patient. PSYCHOTHERAPY: Supportive psychotherapy provided MEDICAL: Per primary team DELIRIUM PRECAUTIONS: Please re-orient patient frequently, keep lights on during the day, and minimize benzodiazepines and opiates as these medications could worsen patient's confusion. CERAMIC TILE INSTALLER: Per medical team DISPOSITION: Per primary team; no indication for acute inpatient psychiatric hospitalization at this time LEGAL STATUS: Voluntary FOLLOW-UP: Will follow Thank you for the consult. Please contact with any questions and/or concerns. Medications and Allergies Allergies Allergy/AdvReac Type Severity Reaction Status Date / Time Sulfa (Sulfonamide Allergy Hives Verified 06/02/19 23:12 Antibiotics) sulfamethoxazole Allergy Hives Verified 06/02/19 23:12 [From Bactrim] trimethoprim [From Bactrim] Allergy Hives Verified 06/02/19 23:12 Home Medications Medication Instructions Recorded Confirmed Last Taken Type Ciprofloxacin HCl [Ciprofloxacin 500 mg PO BID 10 Days #20 tab 06/03/19 Unknown Rx TAB] Omeprazole 40 mg PO DAILY #30 capsule. 06/03/19 Unknown Rx Tamsulosin [Flomax] 0.4 mg PO QDAY #12 cap 06/03/19 Unknown Rx amLODIPine 10 mg PO DAILY #30 tab 06/03/19 Unknown Rx traMADoL [Ultram] 50 mg PO Q6HR PRN #12 tablet 06/03/19 Unknown Rx Active Meds: Active Medications Acetaminophen (Tylenol) 650 mg PO Q4H PRN PRN Reason: Pain MILD(1-3)/Fever >100.5/SINGH Aspirin (Ecotrin) 325 mg PO QDAY [facility] Last Admin: 04/01/20 10:02 Dose: 325 mg Documented by: Carvedilol (Coreg) 6.25 mg PO BID [facility] Last Admin: 04/01/20 10:02 Dose: 6.25 mg Documented by: Heparin Sodium (Porcine) (Heparin) 5,000 unit SUB-Q Q12HR [facility] Last Admin: 04/01/20 10:03 Dose: 5,000 unit Documented by: Ceftriaxone Sodium (Rocephin/Ns 1 Gm/50 Ml) 1 gm in 50 mls @ 100 mls/hr IV Q2 4HR [facility]; Protocol Last Admin: 04/01/20 10:02 Dose: 100 mls/hr Documented by: Sodium Chloride (Nacl 0.9% 1000 Ml) 1,000 mls @ 75 mls/hr IV DIRECT [facility] Last Admin: 04/01/20 05:13 Dose: 75 mls/hr Documented by: Isosorbide Dinitrate/Hydralazine (Bidil 20/37.5mg) 1 each PO Q8HR [facility] Last Admin: 04/01/20 05:20 Dose: 1 each Documented by: Magnesium Hydroxide (Milk Of Magnesia) 30 ml PO Q4H PRN PRN Reason: Constipation Morphine Sulfate (Morphine) 2 mg IV Q5MIN PRN PRN Reason: Chest Pain Last Admin: 03/31/20 22:20 Dose: 2 mg Documented by: Nitroglycerin (Nitrostat) 0.4 mg SL Q5M PRN PRN Reason: Chest Pain Ondansetron HCl (Zofran) 4 mg IV Q8H PRN PRN Reason: Nausea And Vomiting Last Admin: 04/01/20 05:25 Dose: 4 mg Documented by: Sodium Bicarbonate (Sodium Bicarbonate) 650 mg PO TID [facility] Last Admin: 04/01/20 10:02 Dose: 650 mg Documented by: Sodium Chloride (Sodium Chloride Flush Syringe 10 Ml) 10 ml IV BID JULIENNE Last Admin: 03/31/20 21:26 Dose: 10 ml Documented by: Sodium Chloride (Sodium Chloride Flush Syringe 10 Ml) 10 ml IV PRN PRN PRN Reason: LINE FLUSH Mental Status Exam - Vital signs Last Vital Signs Temp 98 F 04/01/20 08:00 Pulse 80 04/01/20 08:04 Resp 18 04/01/20 08:00 BP 130/79 04/01/20 08:00 Pulse Ox 98 04/01/20 08:04 Results Result Diagrams: 04/01/20 04:06 04/01/20 04:06 Abnormal lab results 03/31/20 03/31/20 04/01/20 Range/Units 12:52 20:06 04:06 WBC 3.1 L (4.5-11.0) K/mm3 RBC 3.28 L (3.65-5.03) M/mm3 Hgb 9.8 L (11.8-15.2) gm/dl Hct 29.2 L (35.5-45.6) % RDW 16.9 H (13.2-15.2) % Plt Count 118 L (140-440) K/mm3 [place] % (Auto) 11.5 H (0.0-7.3) % Lymph # 0.6 L (1.2-5.4) K/mm3 Heparin Anti-Xa Level < 0.10 L 0.10 L (0.3-0.7) U.I./ml Sodium (137-145) mmol/L Carbon Dioxide (22-30) mmol/L BUN (9-20) mg/dL Creatinine (0.8-1.5) mg/dL Glucose (75-100) mg/dL 04/01/20 Range/Units 04:06 WBC (4.5-11.0) K/mm3 RBC (3.65-5.03) M/mm3 Hgb (11.8-15.2) gm/dl Hct (35.5-45.6) % RDW (13.2-15.2) % Plt Count (140-440) K/mm3 [place] % (Auto) (0.0-7.3) % Lymph # (1.2-5.4) K/mm3 Heparin Anti-Xa Level (0.3-0.7) U.I./ml Sodium 134 L (137-145) mmol/L Carbon Dioxide 18 L (22-30) mmol/L BUN 89 H (9-20) mg/dL Creatinine 5.4 H (0.8-1.5) mg/dL Glucose 115 H (75-100) mg/dL All other labs normal. Assessment and Plan - Psychiatric problem (1) Substance use disorder Current Visit: Yes Status: Acute (2) Substance induced mood disorder Current Visit: Yes Status: Acute (3) Schizoaffective disorder, bipolar type Current Visit: Yes Status: Acute (4) Nonadherence to medication Current Visit: Yes Status: Acute
[2020-04-01] MEDS: OMEGA-3 FATTY ACIDS/FISH OIL 1 GRAM CAP PO SCH ×2 (12:23→21:25)
[2020-04-01] MEDS: ACETAMINOPHEN 325 MG TAB PO PRN (15:43)
[2020-04-01] MEDS ORDERED: MELATONIN 5 MG TAB PO PRN (22:00)
[2020-04-02] MEDS: ISOSORB DINIT/HYDRALAZINE 20-37.5MG TAB PO SCH ×3 (05:01→22:10)
[2020-04-02 05:37] LABS: Hematocrit 30.2 % (35.5-45.6)
--- NOTE | 2020-04-02 08:56 | Progress Note ---
Assessment and Plan Assessment and plan: Acute on CKD. Patient appears to have a baseline creatinine of 2.6 in May 2019. However, patient presents to the emergency department with a creatinine of greater than 7. Nephrology following. Renal ultrasound shows evidence of medical renal disease. No evidence of obstruction or hydronephrosis. Continue to monitor BMP. Acute on chronic systolic heart failure. Echocardiogram on this admission reveals EF 20 to 25% Chest pain. Patient does have elevated troponin. However, this may be related to renal insufficiency. Continue to monitor cardiac isoenzymes. An ECG is sinus rhythm with a LBBB. Chest pain pathway. Cardiology consulted and cardiac evaluation per their recommendation. Ascending aortic aneurysm. Aneurysm measures 5.2 to 5.5 cm. Methamphetamine abuse. Patient has been counseled on cessation. Withdrawal protocols. Schizoaffective disorder. Psychiatry following. 04/01/2020. Optimize guideline directed medical therapy for heart failure per cardiology recommendations. Nephrology recommends gentle IV fluid hydration given the acute kidney injury. Await psychiatry consultation for auditory hallucinations. Cardiology recommends further follow-up with CT surgery evaluation when stable 04/02/2020. Patient with CKD IV based on previous labs. He has no acute i ndications for renal replacement therapy at this time, renal function improving on IVF. Renal US essentially shows atrophic left kidney and evidence of medical renal disease, otherwise no other acute abnormalities. Continue strict I/O and avoid all nephrotoxins. History Interval history: No new issues overnight. Hospitalist Physical - Constitutional Vitals: Temp Pulse Resp BP Pulse Ox 97.8 F 89 20 139/94 98 04/02/20 04:22 04/02/20 04:22 04/02/20 04:22 04/02/20 04:22 04/02/20 04:22 General appearance: Present: no acute distress - EENT Eyes: Present: PERRL, EOM intact ENT: hearing intact, clear oral mucosa, dentition normal - Neck Neck: Present: supple, normal ROM - Respiratory Respiratory effort: normal Respiratory: bilateral: CTA - Cardiovascular Rhythm: regular Heart Sounds: Present: S1 & S2. Absent: gallop, rub - Extremities Extremities: no ischemia, No edema, Full ROM - Abdominal General gastrointestinal: soft, non-tender, non-distended, normal bowel sounds - Integumentary Integumentary: Present: clear, warm, dry - Neurologic Neurologic: CNII-XII intact, moves all extremities HEART Score - HEART Score EKG: Non-specific Age: 45-65 Risk factors: 1-2 risk factors Troponin: Troponin T 0.123 ng/mL (0.00-0.029) H* 03/31/20 07:02 Troponin: 1-3x normal limit Results - Labs CBC & Chem 7: 04/02/20 04:41 04/01/20 04:06 Labs: Laboratory Last Values WBC 3.1 K/mm3 (4.5-11.0) L 04/01/20 04:06 RBC 3.28 M/mm3 (3.65-5.03) L 04/01/20 04:06 Hgb 10.0 gm/dl (11.8-15.2) L 04/02/20 04:41 Hct 30.2 % (35.5-45.6) L 04/02/20 04:41 MCV 89 fl (84-94) 04/01/20 04:06 MCH 30 pg (28-32) 04/01/20 04:06 MCHC 34 % (32-34) 04/01/20 04:06 RDW 16.9 % (13.2-15.2) H 04/01/20 04:06 Plt Count 110 K/mm3 (140-440) L 04/02/20 04:41 Lymph % (Auto) 20.5 % (13.4-35.0) 04/01/20 04:06 Lamb % (Auto) 11.5 % (0.0-7.3) H 04/01/20 04:06 Eos % (Auto) 1.0 % (0.0-4.3) 04/01/20 04:06 Baso % (Auto) 1.5 % (0.0-1.8) 04/01/20 04:06 Lymph # 0.6 K/mm3 (1.2-5.4) L 04/01/20 04:06 Lamb # 0.4 K/mm3 (0.0-0.8) 04/01/20 04:06 Eos # 0.0 K/mm3 (0.0-0.4) 04/01/20 04:06 Baso # 0.0 K/mm3 (0.0-0.1) 04/01/20 04:06 Seg Neutrophils % 65.5 % (40.0-70.0) 04/01/20 04:06 Seg Neutrophils # 2.0 K/mm3 (1.8-7.7) 04/01/20 04:06 PT 14.6 Sec. (12.2-14.9) 04/01/20 04:06 INR 1.13 (0.87-1.13) 04/01/20 04:06 APTT 33.2 Sec. (24.2-36.6) 04/01/20 04:06 Heparin Anti-Xa Level 0.10 U.I./ml (0.3-0.7) L 03/31/20 20:06 Sodium 134 mmol/L (137-145) L 04/01/20 04:06 Potassium 3.9 mmol/L (3.6-5.0) 04/01/20 04:06 Chloride 102.8 mmol/L (98-107) 04/01/20 04:06 Carbon Dioxide 18 mmol/L (22-30) L 04/01/20 04:06 Anion Gap 17 mmol/L 04/01/20 04:06 BUN 89 mg/dL (9-20) H 04/01/20 04:06 Creatinine 5.4 mg/dL (0.8-1.5) H 04/01/20 04:06 Estimated GFR 11 ml/min 04/01/20 04:06 BUN/Creatinine Ratio 16 % 04/01/20 04:06 Glucose 115 mg/dL (75-100) H 04/01/20 04:06 Calcium 8.6 mg/dL (8.4-10.2) 04/01/20 04:06 Troponin T 0.123 ng/mL (0.00-0.029) H* 03/31/20 07:02 NT-Pro-B Natriuret Pep > 22668 pg/mL (0-900) H 03/30/20 21:57 Triglycerides 133 mg/dL (2-149) 03/30/20 21:57 Cholesterol 166 mg/dL (50-199) 03/30/20 21:57 LDL Cholesterol Direct 119 mg/dL (50-130) 03/30/20 21:57 HDL Cholesterol 26 mg/dL (40-59) L 03/30/20 21:57 Cholesterol/HDL Ratio 6.38 % 03/30/20 21:57 Urine Color Yellow (Yellow) 03/31/20 00: Urine Turbidity Slightly-cloudy (Clear) 03/31/20 00: Urine pH 5.0 (5.0-7.0) 03/31/20: Ur Specific [place] 1.016 (1.003-1.030) 03/31/20 00: Urine Protein 100 mg/dl mg/dL (Negative) 03/31/20: Urine Glucose (UA) Neg mg/dL (Negative) 03/31/20: Urine Ketones Neg mg/dL (Negative) 03/31/20 00: Urine Blood Lg (Negative) 03/31/20 00: Urine Nitrite Neg (Negative) 03/31/20: Urine Bilirubin Neg (Negative) 03/31/20: Urine Urobilinogen < 2.0 mg/dL (<2.0) 03/31/20 00: Ur Leukocyte Esterase Mod (Negative) 03/31/20 00: Urine WBC (Auto) 138.0 /HPF (0.0-6.0) H 03/31/20 00: Urine RBC (Auto) 116.0 /HPF (0.0-6.0) 03/31/20 00: U Epithel Cells (Auto) < 1.0 /HPF (0-13.0) 03/31/20 00: Urine Bacteria (Auto) 2+ /HPF (Negative) 03/31/20 00: Urine WBC Clumps 2+ /HPF 03/31/20 00: Urine Mucus Few /HPF 03/31/20 00: Urine Opiates Screen Presumptive negative 03/31/20 00: Urine Methadone Screen Presumptive negative 03/31/20 00: Ur Barbiturates Screen Presumptive negative 03/31/20 00:29 Ur Phencyclidine Scrn Presumptive negative 03/31/20: Ur Amphetamines Screen Presumptive positive 03/31/20: U Benzodiazepines Scrn Presumptive negative 03/31/20 00: Urine Cocaine Screen Presumptive negative 03/31/20 00: U Marijuana (THC) Screen Presumptive positive 03/31/20 00: Drugs of Abuse Note Disclamer 03/31/20 00:29 - Diagnostic Impressions Diagnostic Impressions: Echocardiogram 03/31/20 01:22 Transthoracic Echocardiogram Indication: Chest pain BP: 130/83 HR: 72 Conclusions *There is an aneurysm of the ascending aorta, which measures 5.2-5.5 cm above the sinuses of valsalva. *Severe, 4-chamber dilated cardiomyopathy. *Global left ventricular systolic function is severely decreased. *The estimated ejection fraction is 20-25%. *Mild to moderate concentric left ventricular hypertrophy is observed. *There is mild to moderate mitral regurgitation. *There is mild aortic stenosis with amean gradient of 10. *There is mild aortic regurgitation. *There is moderate tricuspid regurgitation. *There is evidence of mild pulmonary hypertension with a PASP of 34. *A trivial pericardial effusion is visualized. Findings Left Ventricle: The left ventricular size is moderate to severely dilated. Mild to moderate concentric left ventricular hypertrophy is observed. Global left ventricular systolic function is severely decreased. The estimated ejection fraction is 20-25%. Left Atrium: The left atrium is severely dilated. Right Ventricle: The right ventricle is moderate to severely dilated. The right ventricular global systolic function is severely reduced. Right Atrium: The right atrium is moderate to severely dilated. Aortic Valve: The aortic valve is trileaflet. The aortic valve leaflets are moderately thickened. There is mild aortic regurgitation. There is mild aortic stenosis. The mean gradient of the aortic valve is 9.7 mmHg. Mitral Valve: The mitral valve leaflets are moderately thickened. There is mild to moderate mitral regurgitation. There is no evidence of mitral stenosis. Tricuspid Valve: There is moderate tricuspid regurgitation. The right ventricular systolic pressure is calculated at 34 mmHg. There is evidence of mild pulmonary hypertension. Pulmonic Valve: There is mild pulmonic regurgitation. Pericardium: A trivial pericardial effusion is visualized. Aorta: There is moderate dilatation of the ascending aorta. There is mild dilatation of the aortic root. There is an aneurysm in the ascending aorta. Venous: The inferior vena cava is dilated. Measurements Chambers 2D Name Value Normal Range IVSd (2D) 1.34 cm (0.6 - 1.1) LVPWd (2D) 1.33 cm (0.6 - 1.1) LVIDd (2D) 6 cm (3.7 - 5.6) LVIDs (2D) 5.01 cm (2 - 3.8) LV FS (2D) 16.48 % - EF Teichholz (2D) 33.97 % - Ao root diameter (2D) 4.05 cm (2 - 3.7) Volumes/Mass Name Value Normal Range LA ESV SP 4CH (A/L) 96.08 ml - LA ESV SP 2CH (A/L) 101.58 ml - LA ESV BP (A/L) 99.21 ml - LA ESV BP (A/L) index 48.16 ml/m2 - LA ESV SP 4CH (MOD) 92.31 ml - LA ESV SP 2CH (MOD) 97.78 ml - LA ESV BP (MOD) 95.38 ml - LA ESV BP (MOD) index 46.3 ml/m2 - Diastolic/Systolic Function Name Value Normal Range MV E-wave Vmax 0.92 m/sec - MV deceleration time 176.87 msec - MV A-wave Vmax 0.44 m/sec - MV E:A ratio 2.09 ratio - Aortic Valve Name Value Normal Range AV Vmax 2.21 m/sec - AV VTI 41.47 cm - AV peak gradient 19.48 mmHg - AV mean gradient 9.7 mmHg - LVOT diameter 2.2 cm - LVOT Vmax 0.86 m/sec - LVOT VTI 19.02 cm - LVOT peak gradient 2.94 mmHg - LVOT mean gradient 1.78 mmHg - SV LVOT 72.27 ml - BOBBI (continuity Vmax) 1.47 cm2 - BOBBI (continuity VTI) 1.74 cm2 - AR PHT 452.76 msec - AR peak gradient 90.78 mmHg - Ascending Ao 5.22 cm - Mitral Valve Name Value Normal Range MR Vmax 4.75 m/sec - Tricuspid Valve Name Value Normal Range TR Vmax 2.56 m/sec - TR peak gradient 26.25 mmHg - RAP 8 mmHg - RVSP 34 mmHg - IVC diameter 2.97 cm (1.2 - 2.3) Pulmonic Valve/Qp:Qs Name Value Normal Range PV Vmax 0.77 m/sec - PV peak gradient 2.38 mmHg - LA end-diastolic Vmax 0.66 m/sec - PV acceleration time 156.04 msec - Johnson/IV: Voiding Method Toilet IV Catheter Type [Left INT / Saline Lock Antecubital] Active Medications - Current Medications Current Medications: Generic Name Dose Route Start Last Admin Trade Name Freq PRN Reason Stop Dose Admin Acetaminophen 650 mg 05/15/20 01:07 04/01/20 15:43 Tylenol PO 650 mg Q4H PRN Administration Pain MILD(1-3)/Fever >100.5/SINGH Aspirin 325 mg 04/01/20 10:00 04/01/20 10:02 Ecotrin PO 325 mg QDAY JULIENNE Administration Carvedilol 6.25 mg 03/31/20 13:00 04/01/20 21:25 Coreg PO 6.25 mg BID JULIENNE Administration Fish Oil 2,000 mg 04/01/20 12:00 04/01/20 21:25 Fish Oil PO 2,000 mg BID JULIENNE Administration Heparin Sodium (Porcine) 5,000 unit 03/31/20 22:00 04/01/20 21:26 Heparin SUB-Q 5,000 unit Q12HR JULIENNE Administration Ceftriaxone Sodium 1 gm in 50 mls @ 100 mls/hr 03/31/20 10:00 04/01/20 10:02 Rocephin/Ns 1 Gm/50 Ml IV 100 mls/hr Q24HR JULIENNE Administration Protocol Sodium Chloride 1,000 mls @ 75 mls/hr 03/31/20 01:15 04/01/20 20:29 Nacl 0.9% 1000 Ml IV 75 mls/hr DIRECT JULIENNE Administration Isosorbide Dinitrate/Hydralazine 1 each 03/31/20 22:00 04/02/20 05:01 Bidil 20/37.5mg PO 1 each Q8HR JULIENNE Administration Magnesium Hydroxide 30 ml 03/31/20 01:07 Milk Of Magnesia PO Q4H PRN Constipation Melatonin 5 mg 04/01/20 22:00 Melatonin PO QHS PRN Sleep Morphine Sulfate 2 mg 03/31/20 01:07 03/31/20 22:20 Morphine IV 2 mg Q5MIN PRN Administration Chest Pain Nitroglycerin 0.4 mg 03/31/20 01:07 Nitrostat SL Q5M PRN Chest Pain Olanzapine 5 mg 04/01/20 22:00 04/01/20 21:32 Zyprexa PO 5 mg QHS JULIENNE Administration Ondansetron HCl 4 mg 03/31/20 01:07 04/01/20 20:29 Zofran IV 4 mg Q8H PRN Administration Nausea And Vomiting Sodium Bicarbonate 650 mg 03/31/20 20:00 04/01/20 21:25 Sodium Bicarbonate PO 650 mg TID JULIENNE Administration Sodium Chloride 10 ml 03/31/20 10:00 04/01/20 21:26 Sodium Chloride Flush Syringe 10 Ml IV 10 ml BID JULIENNE Administration Sodium Chloride 10 ml 03/31/20 01:07 Sodium Chloride Flush Syringe 10 Ml IV PRN PRN LINE FLUSH
[2020-04-02] MEDS: cefTRIAXone/NS 1 GM/50 ML 1 GM/50 ML BAG IV SCH (10:28)
[2020-04-02] MEDS: ASPIRIN EC 325 MG TAB PO SCH (10:28)
[2020-04-02] MEDS: OMEGA-3 FATTY ACIDS/FISH OIL 1 GRAM CAP PO SCH ×2 (10:28→22:09)
[2020-04-02] MEDS: HEPARIN 5,000 UNIT/1 ML VIAL SUB-Q SCH ×2 (10:29→22:10)
[2020-04-02] MEDS: SODIUM BICARBONATE 650 MG TAB PO SCH ×3 (10:29→22:09)
[2020-04-02] MEDS: carvediloL 6.25 MG TAB PO SCH ×2 (10:29→22:10)
[2020-04-02] MEDS: ACETAMINOPHEN 325 MG TAB PO PRN (10:29)
--- NOTE | 2020-04-02 11:35 | Progress Note ---
Subjective - Reason for Consult Consult date: 04/02/20 Reason for consult: MHE Requesting physician: LISA OH - Chief Complaint Chief complaint: HPI In my interview with the patient this morning, the patient reports mood as feeling better. Appetite is good. Sleep last night was much better. Patient denies current SI, HI, AH, VH, and contracts to ask the staff for help if any of these symptoms increase. Today patient was less irritated, more cooperative with good insight. Admits that the drugs messed him up. MENTAL STATUS EXAMINATION General Appearance and Behavior: Age appropriate, good hygiene, wearing appropriate clothes, good eye contact. Cooperation: cooperative Psychomotor Behavior: unremarkable and within normal limits Mood: feels better Affect and affective range: congruent with mood Thought Process: Logical and goal directed Thought Content: Within reality Speech: Normal volume, Regular rate and rhythm Intellectual Functioning: Average Suicidal Ideation: Denies SI Homicidal Ideation: Denies HI Impulse Control: Unimpaired Insight and Judgment: Normal insight and judgment Memory: Normal Attention: Normal Orientation: Alert, oriented, anxious Assessment and Plan - Psychiatric problem (1) Substance use disorder Current Visit: Yes Status: Acute (2) Substance induced mood disorder Current Visit: Yes Status: Acute (3) Schizoaffective disorder, bipolar type Current Visit: Yes Status: Acute (4) Nonadherence to medication Current Visit: Yes Status: Acute RECOMMENDATIONS Signing off, to be discharged on current medications outpt. Patient has poor renal function and Heart disease, limiting pharmacological therapies. MEDICATIONS: Will start on Olazanpine, no renal adjustment needed low dose. Risks, benefits and alternatives of medications discussed with the patient, questions answered and consent obtained from patient. PSYCHOTHERAPY: Supportive psychotherapy provided MEDICAL: Per primary team DELIRIUM PRECAUTIONS: Please re-orient patient frequently, keep lights on during the day, and minimize benzodiazepines and opiates as these medications could worsen patient's confusion. AUDIOVISUAL AIDS TECHNICIAN: Per medical team DISPOSITION: Per primary team; no indication for acute inpatient psychiatric hospitalization at this time LEGAL STATUS: Voluntary FOLLOW-UP: Will sign off Thank you for the consult. Please contact with any questions and/or concerns. Mental Status Exam - Vital signs Last Vital Signs Temp 97.4 F L 04/02/20 08:18 Pulse 79 04/02/20 10:00 Resp 18 04/02/20 08:18 BP 153/99 04/02/20 08:18 Pulse Ox 97 04/02/20 08:18 Assessment and Plan - Patient Problems (1) Substance use disorder Current Visit: Yes Status: Acute (2) Substance induced mood disorder Current Visit: Yes Status: Acute (3) Schizoaffective disorder, bipolar type Current Visit: Yes Status: Acute (4) Nonadherence to medication Current Visit: Yes Status: Acute
[2020-04-02] MEDS: VENLAFAXINE XR 75 MG CAP PO SCH (13:48)
[2020-04-02] MEDS: SODIUM CHLORIDE 0.9% 1000 ML 1,000 ML IV SCH (15:08)
--- NOTE | 2020-04-02 16:20 | Progress Note ---
Assessment and Plan - Patient Problems (1) Acute on chronic systolic heart failure Current Visit: Yes Status: Acute Plan to address problem: The patient was admitted with symptoms of acute on chronic systolic heart failure, due to admitted noncompliance with medical therapy, outpatient doctor visits and dietary salt restrictions. On this presentation, his echocardiogram shows a left ventricular ejection fraction of 20 to 25%. He has severe renal failure with current creatinine of 6.4. We will optimize guideline directed medical therapy as tolerated for his chronic systolic left ventricular failure. Nephrology has recommended intravenous hydration, should be done judiciously due to patient's presentation with fluid overload and the presence of severe left ventricular dysfunction. (2) Ascending aortic aneurysm Current Visit: Yes Status: Acute Plan to address problem: The ascending aorta is dilated, measures 5.2 to 5.5 cm. Following full assessment and optimization of the renal status, he will need further CT surgery evaluation of the dilated ascending aorta. Subjective Date of service: 04/02/20 Principal diagnosis: JEANNIE Interval history: The patient is comfortable, no new cardiac complaints. Objective Vital Signs Temp Pulse Resp BP Pulse Ox 04/02/20 14:26 150/99 04/02/20 12:36 97.6 F 81 18 150/99 93 04/02/20 10:00 79 04/02/20 08:18 97.4 F L 86 18 153/99 97 04/02/20 04:22 97.8 F 89 20 139/94 98 04/02/20 00:00 82 04/01/20 23:48 98.1 F 79 20 141/91 96 04/01/20 19:40 97.3 F L 81 20 153/98 99 - Physical Examination General: No Apparent Distress HEENT: Positive: PERRL Neck: Positive: neck supple Cardiac: Positive: Reg Rate and Rhythm Lungs: Positive: Decreased Breath Sounds Neuro: Positive: Grossly Intact Abdomen: Positive: Soft Skin: Positive: Clear Extremities: Absent: edema - Labs and Meds CBC 04/02/20 Range/Units 04:41 Hgb 10.0 L (11.8-15.2) gm/dl Hct 30.2 L (35.5-45.6) % Plt Count 110 L (140-440) K/mm3
[2020-04-03 04:58] LABS: Calcium 8.6 mg/dL (8.4-10.2)
[2020-04-03] MEDS: SODIUM CHLORIDE 0.9% 1000 ML 1,000 ML IV SCH ×2 (05:04→21:37)
[2020-04-03] MEDS: ISOSORB DINIT/HYDRALAZINE 20-37.5MG TAB PO SCH ×3 (05:04→21:28)
--- NOTE | 2020-04-03 08:52 | Progress Note ---
Assessment and Plan Assessment and plan: Acute on CKD. Patient appears to have a baseline creatinine of 2.6 in May 2019. However, patient presents to the emergency department with a creatinine of greater than 7. Nephrology following. Renal ultrasound shows evidence of medical renal disease. No evidence of obstruction or hydronephrosis. Continue to monitor BMP. Acute on chronic systolic heart failure. Echocardiogram on this admission reveals EF 20 to 25% Chest pain. Patient does have elevated troponin. However, this may be related to renal insufficiency. Continue to monitor cardiac isoenzymes. An ECG is sinus rhythm with a LBBB. Chest pain pathway. Cardiology consulted and cardiac evaluation per their recommendation. Ascending aortic aneurysm. Aneurysm measures 5.2 to 5.5 cm. Methamphetamine abuse. Patient has been counseled on cessation. Withdrawal protocols. Schizoaffective disorder. Psychiatry following. 04/01/2020. Optimize guideline directed medical therapy for heart failure per cardiology recommendations. Nephrology recommends gentle IV fluid hydration given the acute kidney injury. Await psychiatry consultation for auditory hallucinations. Cardiology recommends further follow-up with CT surgery evaluation when stable 04/02/2020. Patient with CKD IV based on previous labs. He has no acute i ndications for renal replacement therapy at this time, renal function improving on IVF. Renal US essentially shows atrophic left kidney and evidence of medical renal disease, otherwise no other acute abnormalities. Continue strict I/O and avoid all nephrotoxins. 04/03/2020. Creatinine has improved to 3.4. Continue gentle IV hydration per nephrology recommendations. Ascending aorta is dilated measuring 5.2 to 5.5 cm. Following optimization of renal status, patient will need further CT evaluation of dilated ascending aorta at discharge. Psychiatry signed off and recommends patient to be discharged on current medications. History Interval history: No new issues overnight. Hospitalist Physical - Constitutional Vitals: Temp Pulse Resp BP Pulse Ox 97.6 F 77 18 158/94 95 04/03/20 04:48 04/03/20 04:48 04/03/20 04:48 04/03/20 04:48 04/03/20 04:48 General appearance: Present: no acute distress - EENT Eyes: Present: PERRL, EOM intact ENT: hearing intact, clear oral mucosa, dentition normal - Neck Neck: Present: supple, normal ROM - Respiratory Respiratory effort: normal Respiratory: bilateral: CTA - Cardiovascular Rhythm: regular Heart Sounds: Present: S1 & S2. Absent: gallop, rub - Extremities Extremities: no ischemia, No edema, Full ROM - Abdominal General gastrointestinal: soft, non-tender, non-distended, normal bowel sounds - Integumentary Integumentary: Present: clear, warm, dry - Neurologic Neurologic: CNII-XII intact, moves all extremities HEART Score - HEART Score EKG: Non-specific Age: 45-65 Risk factors: 1-2 risk factors Troponin: Troponin T 0.123 ng/mL (0.00-0.029) H* 03/31/20 07:02 Troponin: 1-3x normal limit Results - Labs CBC & Chem 7: 04/02/20 04:41 04/03/20 04:21 Labs: Laboratory Last Values WBC 3.1 K/mm3 (4.5-11.0) L 04/01/20 04:06 RBC 3.28 M/mm3 (3.65-5.03) L 04/01/20 04:06 Hgb 10.0 gm/dl (11.8-15.2) L 04/02/20 04:41 Hct 30.2 % (35.5-45.6) L 04/02/20 04:41 MCV 89 fl (84-94) 04/01/20 04:06 MCH 30 pg (28-32) 04/01/20 04:06 MCHC 34 % (32-34) 04/01/20 04:06 RDW 16.9 % (13.2-15.2) H 04/01/20 04:06 Plt Count 110 K/mm3 (140-440) L 04/02/20 04:41 Lymph % (Auto) 20.5 % (13.4-35.0) 04/01/20 04:06 Callaway % (Auto) 11.5 % (0.0-7.3) H 04/01/20 04:06 Eos % (Auto) 1.0 % (0.0-4.3) 04/01/20 04:06 Baso % (Auto) 1.5 % (0.0-1.8) 04/01/20 04:06 Lymph # 0.6 K/mm3 (1.2-5.4) L 04/01/20 04:06 Callaway # 0.4 K/mm3 (0.0-0.8) 04/01/20 04:06 Eos # 0.0 K/mm3 (0.0-0.4) 04/01/20 04:06 Baso # 0.0 K/mm3 (0.0-0.1) 04/01/20 04:06 Seg Neutrophils % 65.5 % (40.0-70.0) 04/01/20 04:06 Seg Neutrophils # 2.0 K/mm3 (1.8-7.7) 04/01/20 04:06 PT 14.6 Sec. (12.2-14.9) 04/01/20 04:06 INR 1.13 (0.87-1.13) 04/01/20 04:06 APTT 33.2 Sec. (24.2-36.6) 04/01/20 04:06 Heparin Anti-Xa Level 0.10 U.I./ml (0.3-0.7) L 03/31/20 20:06 Sodium 138 mmol/L (137-145) 04/03/20 04:21 Potassium 4.0 mmol/L (3.6-5.0) 04/03/20 04:21 Chloride 107.3 mmol/L (98-107) H 04/03/20 04:21 Carbon Dioxide 17 mmol/L (22-30) L 04/03/20 04:21 Anion Gap 18 mmol/L 04/03/20 04:21 BUN 60 mg/dL (9-20) H 04/03/20 04:21 Creatinine 3.4 mg/dL (0.8-1.5) H 04/03/20 04:21 Estimated GFR 19 ml/min 04/03/20 04:21 BUN/Creatinine Ratio 18 % 04/03/20 04:21 Glucose 104 mg/dL (75-100) H 04/03/20 04:21 Calcium 8.6 mg/dL (8.4-10.2) 04/03/20 04:21 Troponin T 0.123 ng/mL (0.00-0.029) H* 03/31/20 07:02 NT-Pro-B Natriuret Pep > 45588 pg/mL (0-900) H 03/30/20 21:57 Triglycerides 133 mg/dL (2-149) 03/30/20 21:57 Cholesterol 166 mg/dL (50-199) 03/30/20 21:57 LDL Cholesterol Direct 119 mg/dL (50-130) 03/30/20 21:57 HDL Cholesterol 26 mg/dL (40-59) L 03/30/20 21:57 Cholesterol/HDL Ratio 6.38 % 03/30/20 21:57 Urine Color Yellow (Yellow) 03/31/20 00:29 Urine Turbidity Slightly-cloudy (Clear) 03/31/20 00: Urine pH 5.0 (5.0-7.0) 03/31/20 00:29 Ur Specific Shannon 1.016 (1.003-1.030) 03/31/20 00: Urine Protein 100 mg/dl mg/dL (Negative) 03/31/20 00: Urine Glucose (UA) Neg mg/dL (Negative) 03/31/20 00: Urine Ketones Neg mg/dL (Negative) 03/31/20 00: Urine Blood Lg (Negative) 03/31/20 00: Urine Nitrite Neg (Negative) 03/31/20 00: Urine Bilirubin Neg (Negative) 03/31/20 00: Urine Urobilinogen < 2.0 mg/dL (<2.0) 03/31/20 00:29 Ur Leukocyte Esterase Mod (Negative) 03/31/20 00: Urine WBC (Auto) 138.0 /HPF (0.0-6.0) H 03/31/20 00: Urine RBC (Auto) 116.0 /HPF (0.0-6.0) 03/31/20 00: U Epithel Cells (Auto) < 1.0 /HPF (0-13.0) 03/31/20 00: Urine Bacteria (Auto) 2+ /HPF (Negative) 03/31/20 00: Urine WBC Clumps 2+ /HPF 03/31/20 00:29 Urine Mucus Few /HPF 03/31/20 00:29 Urine Opiates Screen Presumptive negative 03/31/20:29 Urine Methadone Screen Presumptive negative 03/31/20 00:29 Ur Barbiturates Screen Presumptive negative 03/31/20 00:29 Ur Phencyclidine Scrn Presumptive negative 03/31/20 00:29 Ur Amphetamines Screen Presumptive positive 03/31/20: U Benzodiazepines Scrn Presumptive negative 03/31/20 00:29 Urine Cocaine Screen Presumptive negative 03/31/20 00:29 U Marijuana (THC) Screen Presumptive positive 03/31/20 00:29 Drugs of Abuse Note Disclamer 03/31/20 00:29 - Diagnostic Impressions Diagnostic Impressions: Echocardiogram 03/31/20 01:22 Transthoracic Echocardiogram Indication: Chest pain BP: 130/83 HR: 72 Conclusions *There is an aneurysm of the ascending aorta, which measures 5.2-5.5 cm above the sinuses of valsalva. *Severe, 4-chamber dilated cardiomyopathy. *Global left ventricular systolic function is severely decreased. *The estimated ejection fraction is 20-25%. *Mild to moderate concentric left ventricular hypertrophy is observed. *There is mild to moderate mitral regurgitation. *There is mild aortic stenosis with amean gradient of 10. *There is mild aortic regurgitation. *There is moderate tricuspid regurgitation. *There is evidence of mild pulmonary hypertension with a PASP of 34. *A trivial pericardial effusion is visualized. Findings Left Ventricle: The left ventricular size is moderate to severely dilated. Mild to moderate concentric left ventricular hypertrophy is observed. Global left ventricular systolic function is severely decreased. The estimated ejection fraction is 20-25%. Left Atrium: The left atrium is severely dilated. Right Ventricle: The right ventricle is moderate to severely dilated. The right ventricular global systolic function is severely reduced. Right Atrium: The right atrium is moderate to severely dilated. Aortic Valve: The aortic valve is trileaflet. The aortic valve leaflets are moderately thickened. There is mild aortic regurgitation. There is mild aortic stenosis. The mean gradient of the aortic valve is 9.7 mmHg. Mitral Valve: The mitral valve leaflets are moderately thickened. There is mild to moderate mitral regurgitation. There is no evidence of mitral stenosis. Tricuspid Valve: There is moderate tricuspid regurgitation. The right ventricular systolic pressure is calculated at 34 mmHg. There is evidence of mild pulmonary hypertension. Pulmonic Valve: There is mild pulmonic regurgitation. Pericardium: A trivial pericardial effusion is visualized. Aorta: There is moderate dilatation of the ascending aorta. There is mild dilatation of the aortic root. There is an aneurysm in the ascending aorta. Venous: The inferior vena cava is dilated. Measurements Chambers 2D Name Value Normal Range IVSd (2D) 1.34 cm (0.6 - 1.1) LVPWd (2D) 1.33 cm (0.6 - 1.1) LVIDd (2D) 6 cm (3.7 - 5.6) LVIDs (2D) 5.01 cm (2 - 3.8) LV FS (2D) 16.48 % - EF Teichholz (2D) 33.97 % - Ao root diameter (2D) 4.05 cm (2 - 3.7) Volumes/Mass Name Value Normal Range LA ESV SP 4CH (A/L) 96.08 ml - LA ESV SP 2CH (A/L) 101.58 ml - LA ESV BP (A/L) 99.21 ml - LA ESV BP (A/L) index 48.16 ml/m2 - LA ESV SP 4CH (MOD) 92.31 ml - LA ESV SP 2CH (MOD) 97.78 ml - LA ESV BP (MOD) 95.38 ml - LA ESV BP (MOD) index 46.3 ml/m2 - Diastolic/Systolic Function Name Value Normal Range MV E-wave Vmax 0.92 m/sec - MV deceleration time 176.87 msec - MV A-wave Vmax 0.44 m/sec - MV E:A ratio 2.09 ratio - Aortic Valve Name Value Normal Range AV Vmax 2.21 m/sec - AV VTI 41.47 cm - AV peak gradient 19.48 mmHg - AV mean gradient 9.7 mmHg - LVOT diameter 2.2 cm - LVOT Vmax 0.86 m/sec - LVOT VTI 19.02 cm - LVOT peak gradient 2.94 mmHg - LVOT mean gradient 1.78 mmHg - SV LVOT 72.27 ml - BOBBI (continuity Vmax) 1.47 cm2 - BOBBI (continuity VTI) 1.74 cm2 - AR PHT 452.76 msec - AR peak gradient 90.78 mmHg - Ascending Ao 5.22 cm - Mitral Valve Name Value Normal Range MR Vmax 4.75 m/sec - Tricuspid Valve Name Value Normal Range TR Vmax 2.56 m/sec - TR peak gradient 26.25 mmHg - RAP 8 mmHg - RVSP 34 mmHg - IVC diameter 2.97 cm (1.2 - 2.3) Pulmonic Valve/Qp:Qs Name Value Normal Range PV Vmax 0.77 m/sec - PV peak gradient 2.38 mmHg - MN end-diastolic Vmax 0.66 m/sec - PV acceleration time 156.04 msec - Johnson/IV: Voiding Method Toilet IV Catheter Type [Left INT / Saline Lock Antecubital] Active Medications - Current Medications Current Medications: Generic Name Dose Route Start Last Admin Trade Name Freq PRN Reason Stop Dose Admin Acetaminophen 650 mg 03/31/20 01:07 04/02/20 10:29 Tylenol PO 650 mg Q4H PRN Administration Pain MILD(1-3)/Fever >100.5/SINGH Aspirin 325 mg 04/01/20 10:00 04/02/20 10:28 Ecotrin PO 325 mg QDAY JULIENNE Administration Carvedilol 6.25 mg 03/31/20 13:00 04/02/20 22:10 Coreg PO 6.25 mg BID JULIENNE Administration Fish Oil 2,000 mg 04/01/20 12:00 04/02/20 22:09 Fish Oil PO 2,000 mg BID JULIENNE Administration Heparin Sodium (Porcine) 5,000 unit 03/31/20 22:00 04/02/20 22:10 Heparin SUB-Q 5,000 unit Q12HR JULIENNE Administration Ceftriaxone Sodium 1 gm in 50 mls @ 100 mls/hr 03/31/20 10:00 04/02/20 10:28 Rocephin/Ns 1 Gm/50 Ml IV 100 mls/hr Q24HR JULIENNE Administration Protocol Sodium Chloride 1,000 mls @ 75 mls/hr 03/31/20 01:15 04/03/20 05:04 Nacl 0.9% 1000 Ml IV 75 mls/hr DIRECT JULIENNE Administration Isosorbide Dinitrate/Hydralazine 1 each 03/31/20 22:00 04/03/20 05:04 Bidil 20/37.5mg PO 1 each Q8HR JULIENNE Administration Magnesium Hydroxide 30 ml 03/31/20 01:07 Milk Of Magnesia PO Q4H PRN Constipation Melatonin 5 mg 04/01/20 22:00 Melatonin PO QHS PRN Sleep Morphine Sulfate 2 mg 03/31/20 01:07 03/31/20 22:20 Morphine IV 2 mg Q5MIN PRN Administration Chest Pain Nitroglycerin 0.4 mg 03/31/20 01:07 Nitrostat SL Q5M PRN Chest Pain Olanzapine 5 mg 04/01/20 22:00 04/02/20 22:10 Zyprexa PO 5 mg QHS JULIENNE Administration Ondansetron HCl 4 mg 03/31/20 01:07 04/01/20 20:29 Zofran IV 4 mg Q8H PRN Administration Nausea And Vomiting Sodium Bicarbonate 650 mg 03/31/20 20:00 04/02/20 22:09 Sodium Bicarbonate PO 650 mg TID JULIENNE Administration Sodium Chloride 10 ml 03/31/20 10:00 04/02/20 22:11 Sodium Chloride Flush Syringe 10 Ml IV 10 ml BID JULIENNE Administration Sodium Chloride 10 ml 03/31/20 01:07 Sodium Chloride Flush Syringe 10 Ml IV PRN PRN LINE FLUSH Venlafaxine HCl 150 mg 04/02/20 12:00 04/02/20 13:48 Effexor Xr PO 150 mg QDAY JULIENNE Administration
--- NOTE | 2020-04-03 08:55 | Progress Note ---
Assessment and Plan Acute on chronic systolic heart failure echocardiogram shows a left ventricular ejection fraction of 20 to 25%. Ascending aortic aneurysm the ascending aorta is dilated, measures 5.2 to 5.5 cm. Renal failure Hypertension Substance abuse Advised sodium/fluid restrictions. Continue medical management for chronic heart failure as tolerated. Following full assessment and optimization of the renal status, he will need further CT surgery evaluation of the dilated ascending aorta. Subjective Date of service: 04/03/20 Principal diagnosis: JEANNIE Interval history: Patient is resting in bed comfortably. Objective Vital Signs Temp Pulse Resp BP Pulse Ox 04/03/20 04:48 97.6 F 77 18 158/94 95 04/02/20 23:17 97.9 F 83 18 163/105 96 04/02/20 20:36 89 04/02/20 19:43 97.9 F 89 18 173/111 97 04/02/20 15:36 98.0 F 76 18 132/79 99 04/02/20 14:26 150/99 04/02/20 12:36 97.6 F 81 18 150/99 93 04/02/20 10:00 79 - Physical Examination General: No Apparent Distress HEENT: Positive: PERRL Neck: Positive: neck supple Cardiac: Positive: Reg Rate and Rhythm Neuro: Positive: Grossly Intact Abdomen: Positive: Soft Skin: Positive: Clear Extremities: Absent: edema - Labs and Meds Comprehensive Metabolic Panel 04/03/20 Range/Units 04:21 Sodium 138 (137-145) mmol/L Potassium 4.0 (3.6-5.0) mmol/L Chloride 107.3 H (98-107) mmol/L Carbon Dioxide 17 L (22-30) mmol/L BUN 60 H (9-20) mg/dL Creatinine 3.4 H (0.8-1.5) mg/dL Glucose 104 H (75-100) mg/dL Calcium 8.6 (8.4-10.2) mg/dL
[2020-04-03] MEDS ORDERED: SORBITOL 70% ORAL SOLN 30 ML PO PRN (09:30)
[2020-04-03] MEDS: OMEGA-3 FATTY ACIDS/FISH OIL 1 GRAM CAP PO SCH ×2 (10:13→21:28)
[2020-04-03] MEDS: ASPIRIN EC 325 MG TAB PO SCH (10:13)
[2020-04-03] MEDS: VENLAFAXINE XR 75 MG CAP PO SCH (10:13)
[2020-04-03] MEDS: SODIUM BICARBONATE 650 MG TAB PO SCH ×3 (10:13→21:28)
[2020-04-03] MEDS: cefTRIAXone/NS 1 GM/50 ML 1 GM/50 ML BAG IV SCH (10:14)
[2020-04-03] MEDS: HEPARIN 5,000 UNIT/1 ML VIAL SUB-Q SCH ×2 (10:14→21:29)
[2020-04-03] MEDS: carvediloL 6.25 MG TAB PO SCH ×2 (10:14→21:32)
--- NOTE | 2020-04-03 14:49 | XRay Report ---
CHEST 1 VIEW INDICATION: dyspnea. COMPARISON: 2019. FINDINGS: Support devices: None. Heart: Stable cardiomegaly. Lungs/Pleura: No acute air space or interstitial disease. Additional findings: None. IMPRESSION: Stable cardiomegaly. Signer Name: Vinicio Mccrary MD Signed: 04/03/2020 2:45 PM Workstation Name: [id number]
--- NOTE | 2020-04-03 21:08 | Progress Note ---
Assessment and Plan - Patient Problems (1) Acute kidney injury superimposed on CKD Current Visit: Yes Status: Acute Plan to address problem: kidney function is improving. Continue gentle volume repletion and follow-up electrolytes and renal function. (2) Ascending aortic aneurysm Current Visit: Yes Status: Acute Plan to address problem: cardiology appreciated. For evaluation by CT surgery after optimizing renal function (3) Substance use disorder Current Visit: Yes Status: Acute Plan to address problem: counseling on cessation (4) Hypertensive chronic kidney disease with stage 1 through stage 4 chronic kidney disease, or unspecified chronic kidney disease Current Visit: Yes Status: Chronic Plan to address problem: blood pressure is controlled.. Follow blood pressure on current medications (5) Chronic CHF (congestive heart failure) Current Visit: Yes Status: Chronic Plan to address problem: monitor closely for signs of volume overload (6) Anemia in chronic kidney disease Current Visit: Yes Status: Acute Plan to address problem: hemoglobin stable. Followup Subjective Date of service: 04/03/20 Principal diagnosis: JEANNIE Interval history: patient seen standing in his room. He has no new complaints except for constipation. No nausea or vomiting today. Objective - Exam Narrative Exam: middle-aged male in no acute distress HEENT: Normocephalic atraumatic, pupils equal round reactive to light Normal oropharynx, Neck: Supple, no venous distention, no goiter CVS: S1S2 RRR No murmur, No rub or gallop Lungs: Clear to auscultation, no use of accessory muscles of respiration Abdomen: Full, soft, nontender, no organomegaly no bruit, bowel sounds are present Extremities: No edema, no cyanosis or clubbing Urinary: Deferred Musculo-skeletal: No joint deformities or swelling Neuro: Awake, alert, no focal deficits - Vital Signs Vital signs: Vital Signs - 12hr 04/03/20 04/03/20 04/03/20 09:41 10:14 12:00 Temperature 97.6 F 96.5 F L Pulse Rate 90 92 H 85 Respiratory 20 20 Rate Blood Pressure 182/116 181/122 Blood Pressure 164/98 [Right] O2 Sat by Pulse 97 99 Oximetry 04/03/20 04/03/20 14:18 14:21 Temperature 97.7 F Pulse Rate 79 85 Respiratory 18 Rate Blood Pressure 154/109 154/109 Blood Pressure [Right] O2 Sat by Pulse 99 Oximetry - Lab 04/02/20 04:41 04/03/20 04:21 Most recent lab results Calcium 8.6 mg/dL (8.4-10.2) 04/03/20 04:21 Medications & Allergies - Medications Allergies/Adverse Reactions: Allergies Sulfa (Sulfonamide Antibiotics) Allergy (Verified 06/02/19 23:12) Hives sulfamethoxazole [From Bactrim] Allergy (Verified 06/02/19 23:12) Hives trimethoprim [From Bactrim] Allergy (Verified 06/02/19 23:12) Hives Home Medications: Home Medications Medication Instructions Recorded Confirmed Last Taken Type Ciprofloxacin HCl [Ciprofloxacin 500 mg PO BID 10 Days #20 tab 06/03/19 Unknown Rx TAB] Omeprazole 40 mg PO DAILY #30 capsule. 06/03/19 Unknown Rx Tamsulosin [Flomax] 0.4 mg PO QDAY #12 cap 06/03/19 Unknown Rx amLODIPine 10 mg PO DAILY #30 tab 06/03/19 Unknown Rx traMADoL [Ultram] 50 mg PO Q6HR PRN #12 tablet 06/03/19 Unknown Rx Active Medications: Generic Name Dose Route Start Last Admin Trade Name Freq PRN Reason Stop Dose Admin Acetaminophen 650 mg 03/31/20 01:07 04/02/20 10:29 Tylenol PO 650 mg Q4H PRN Administration Pain MILD(1-3)/Fever >100.5/SINGH Aspirin 325 mg 04/01/20 10:00 04/03/20 10:13 Ecotrin PO 325 mg QDAY JULIENNE Administration Carvedilol 6.25 mg 03/31/20 13:00 04/03/20 10:14 Coreg PO 6.25 mg BID JULIENNE Administration Fish Oil 2,000 mg 04/01/20 12:00 04/03/20 10:13 Fish Oil PO 2,000 mg BID JULIENNE Administration Heparin Sodium (Porcine) 5,000 unit 03/31/20 22:00 04/03/20 10:14 Heparin SUB-Q 5,000 unit Q12HR JULIENNE Administration Hydralazine HCl 20 mg 04/03/20 11:40 Apresoline IV Q6HR PRN For SBP>170 Ceftriaxone Sodium 1 gm in 50 mls @ 100 mls/hr 03/31/20 10:00 04/03/20 10:14 Rocephin/Ns 1 Gm/50 Ml IV 100 mls/hr Q24HR JULIENNE Administration Protocol Sodium Chloride 1,000 mls @ 75 mls/hr 03/31/20 01:15 04/03/20 05:04 Nacl 0.9% 1000 Ml IV 75 mls/hr DIRECT JULIENNE Administration Isosorbide Dinitrate/Hydralazine 1 each 03/31/20 22:00 04/03/20 14:21 Bidil 20/37.5mg PO 1 each Q8HR JULIENNE Administration Melatonin 5 mg 04/01/20 22:00 Melatonin PO QHS PRN Sleep Morphine Sulfate 2 mg 03/31/20 01:07 03/31/20 22:20 Morphine IV 2 mg Q5MIN PRN Administration Chest Pain Nitroglycerin 0.4 mg 03/31/20 01:07 Nitrostat SL Q5M PRN Chest Pain Olanzapine 5 mg 04/01/20 22:00 04/02/20 22:10 Zyprexa PO 5 mg QHS JULIENNE Administration Ondansetron HCl 4 mg 03/31/20 01:07 04/01/20 20:29 Zofran IV 4 mg Q8H PRN Administration Nausea And Vomiting Sodium Bicarbonate 650 mg 03/31/20 20:00 04/03/20 14:21 Sodium Bicarbonate PO 650 mg TID JULIENNE Administration Sodium Chloride 10 ml 03/31/20 10:00 04/03/20 10:30 Sodium Chloride Flush Syringe 10 Ml IV Not Given BID JULIENNE Sodium Chloride 10 ml 03/31/20 01:07 Sodium Chloride Flush Syringe 10 Ml IV PRN PRN LINE FLUSH Sorbitol 30 ml 04/03/20 09:30 Sorbitol 70% PO DAILY PRN Constipation Venlafaxine HCl 150 mg 04/02/20 12:00 04/03/20 10:13 Effexor Xr PO 150 mg QDAY JULIENNE Administration
[2020-04-04] MEDS: SODIUM CHLORIDE 0.9% 1000 ML 1,000 ML IV SCH ×2 (00:46→06:22)
[2020-04-04] MEDS: hydrALAZINE 20 MG/1 ML INJ IV PRN ×2 (05:04→20:35)
[2020-04-04] MEDS: ISOSORB DINIT/HYDRALAZINE 20-37.5MG TAB PO SCH ×3 (06:23→21:33)
[2020-04-04 07:48] LABS: Basophils % (Auto) 0.4 % (0.0-1.8); Eosinophils # (Auto) 0.1 K/mm3 (0.0-0.4); Eosinophils % (Auto) 1.6 % (0.0-4.3); Hematocrit 31.4 % (35.5-45.6); Hemoglobin 10.3 gm/dl (11.8-15.2); Lymphocytes # (Auto) 0.5 K/mm3 (1.2-5.4); Lymphocytes % (Auto) 13.5 % (13.4-35.0); Mean Corpuscular HGB Conc 33 % (32-34); Mean Corpuscular Volume 90 fl (84-94); Monocytes # (Auto) 0.2 K/mm3 (0.0-0.8); Monocytes % (Auto) 6.3 % (0.0-7.3); Platelet Count 105 K/mm3 (140-440); Red Blood Count 3.51 M/mm3 (3.65-5.03); Red Cell Distribution Width 17.2 % (13.2-15.2)
[2020-04-04 08:08] LABS: Calcium 8.9 mg/dL (8.4-10.2)
--- NOTE | 2020-04-04 08:39 | Progress Note ---
Assessment and Plan - Patient Problems (1) Acute kidney injury superimposed on CKD Current Visit: Yes Status: Acute Plan to address problem: kidney function is improving. Unfortunately we have to hold IV fluids given the development of pulmonary edema. Follow-up electrolytes and renal function. (2) Ascending aortic aneurysm Current Visit: Yes Status: Acute Plan to address problem: cardiology appreciated. For evaluation by CT surgery after optimizing renal function (3) Substance use disorder Current Visit: Yes Status: Acute Plan to address problem: counseling on cessation (4) Hypertensive chronic kidney disease with stage 1 through stage 4 chronic kidney disease, or unspecified chronic kidney disease Current Visit: Yes Status: Chronic Plan to address problem: blood pressure is controlled.. Follow blood pressure on current medications (5) Chronic CHF (congestive heart failure) Current Visit: Yes Status: Chronic Plan to address problem: Patient now complains of dyspnea. We will get a stat chest x-ray. Give a dose of Lasix intravenously. Follow-up later in the day (6) Anemia in chronic kidney disease Current Visit: Yes Status: Acute Plan to address problem: hemoglobin stable. Followup Subjective Date of service: 04/04/20 Principal diagnosis: JEANNIE Interval history: patient seen lying in bed. He complains of shortness of breath-I have fluid in my lungs. No nausea or vomiting today. Objective - Exam Narrative Exam: middle-aged male in no acute distress HEENT: Normocephalic atraumatic, pupils equal round reactive to light Normal oropharynx, Neck: Supple, no venous distention, no goiter CVS: S1S2 RRR No murmur, No rub or gallop Lungs: Diminished breath sounds in the lower zones, no use of accessory muscles of respiration Abdomen: Full, soft, nontender, no organomegaly no bruit, bowel sounds are present Extremities: No edema, no cyanosis or clubbing Urinary: Deferred Musculo-skeletal: No joint deformities or swelling Neuro: Awake, alert, no focal deficits - Vital Signs Vital signs: Vital Signs - 12hr 04/03/20 04/03/20 04/04/20 22:20 22:58 03:21 Temperature 97.9 F 97.9 F Pulse Rate 83 85 Respiratory 20 20 20 Rate Blood Pressure 167/103 192/114 O2 Sat by Pulse 99 98 Oximetry 04/04/20 06:23 Temperature Pulse Rate 85 Respiratory Rate Blood Pressure 184/113 O2 Sat by Pulse Oximetry - Lab 04/04/20 07:31 04/04/20 07:31 Most recent lab results Calcium 8.9 mg/dL (8.4-10.2) 04/04/20 07:31 Medications & Allergies - Medications Allergies/Adverse Reactions: Allergies Sulfa (Sulfonamide Antibiotics) Allergy (Verified 06/02/19 23:12) Hives sulfamethoxazole [From Bactrim] Allergy (Verified 06/02/19 23:12) Hives trimethoprim [From Bactrim] Allergy (Verified 06/02/19 23:12) Hives Home Medications: Home Medications Medication Instructions Recorded Confirmed Last Taken Type Ciprofloxacin HCl [Ciprofloxacin 500 mg PO BID 10 Days #20 tab 06/03/19 Unknown Rx TAB] Omeprazole 40 mg PO DAILY #30 capsule. 06/03/19 Unknown Rx Tamsulosin [Flomax] 0.4 mg PO QDAY #12 cap 06/03/19 Unknown Rx amLODIPine 10 mg PO DAILY #30 tab 06/03/19 Unknown Rx traMADoL [Ultram] 50 mg PO Q6HR PRN #12 tablet 06/03/19 Unknown Rx Active Medications: Generic Name Dose Route Start Last Admin Trade Name Freq PRN Reason Stop Dose Admin Acetaminophen 650 mg 03/31/20 01:07 04/02/20 10:29 Tylenol PO 650 mg Q4H PRN Administration Pain MILD(1-3)/Fever >100.5/SINGH Aspirin 325 mg 04/01/20 10:00 04/03/20 10:13 Ecotrin PO 325 mg QDAY JULIENNE Administration Carvedilol 6.25 mg 03/31/20 13:00 04/03/20 21:32 Coreg PO 6.25 mg BID JULIENNE Administration Fish Oil 2,000 mg 04/01/20 12:00 04/03/20 21:28 Fish Oil PO 2,000 mg BID JULIENNE Administration Heparin Sodium (Porcine) 5,000 unit 03/31/20 22:00 04/03/20 21:29 Heparin SUB-Q 5,000 unit Q12HR JULIENNE Administration Hydralazine HCl 20 mg 04/03/20 11:40 04/04/20 05:04 Apresoline IV 20 mg Q6HR PRN Administration For SBP>170 Ceftriaxone Sodium 1 gm in 50 mls @ 100 mls/hr 03/31/20 10:00 04/03/20 10:14 Rocephin/Ns 1 Gm/50 Ml IV 04/06/20 10:29 100 mls/hr Q24HR JULIENNE Administration Protocol Isosorbide Dinitrate/Hydralazine 1 each 03/31/20 22:00 04/04/20 06:23 Bidil 20/37.5mg PO 1 each Q8HR JULIENNE Administration Melatonin 5 mg 04/01/20 22:00 Melatonin PO QHS PRN Sleep Morphine Sulfate 2 mg 03/31/20 01:07 03/31/20 22:20 Morphine IV 2 mg Q5MIN PRN Administration Chest Pain Nitroglycerin 0.4 mg 03/31/20 01:07 Nitrostat SL Q5M PRN Chest Pain Olanzapine 5 mg 04/01/20 22:00 04/03/20 21:28 Zyprexa PO 5 mg QHS JULIENNE Administration Ondansetron HCl 4 mg 03/31/20 01:07 04/01/20 20:29 Zofran IV 4 mg Q8H PRN Administration Nausea And Vomiting Sodium Bicarbonate 650 mg 03/31/20 20:00 04/03/20 21:28 Sodium Bicarbonate PO 650 mg TID JUILENNE Administration Sodium Chloride 10 ml 03/31/20 10:00 04/03/20 21:29 Sodium Chloride Flush Syringe 10 Ml IV 10 ml BID JULIENNE Administration Sodium Chloride 10 ml 03/31/20 01:07 Sodium Chloride Flush Syringe 10 Ml IV PRN PRN LINE FLUSH Sorbitol 30 ml 04/03/20 09:30 Sorbitol 70% PO DAILY PRN Constipation Venlafaxine HCl 150 mg 04/02/20 12:00 04/03/20 10:13 Effexor Xr PO 150 mg QDAY JULIENNE Administration
[2020-04-04] MEDS ORDERED: FUROSEMIDE 40 MG/4 ML INJ IV STA (08:40)
[2020-04-04] MEDS: SODIUM BICARBONATE 650 MG TAB PO SCH ×3 (08:55→21:34)
[2020-04-04] MEDS: MORPHINE 4 MG/1 ML INJ IV PRN (08:56)
--- NOTE | 2020-04-04 09:17 | Progress Note ---
Assessment and Plan Acute on chronic systolic heart failure echocardiogram shows a left ventricular ejection fraction of 20 to 25%. Ascending aortic aneurysm the ascending aorta is dilated, measures 5.2 to 5.5 cm. Renal failure Hypertension Substance abuse Advised sodium/fluid restrictions. Continue medical management for chronic heart failure as tolerated. Further work-up and management of the ascending aortic aneurysm will depend on clinical course. Subjective Date of service: 04/04/20 Principal diagnosis: JEANNIE Interval history: Patient complains of shortness of breath on minimal exertion. IV fluids were discontinued. Objective Vital Signs Temp Pulse Resp BP BP Pulse Ox 04/04/20 08:56 18 04/04/20 08:05 97.6 F 101 H 24 156/104 99 04/04/20 06:23 85 184/113 04/04/20 03:21 97.9 F 85 20 192/114 98 04/03/20 22:58 97.9 F 83 20 167/103 99 04/03/20 22:20 20 04/03/20 20:20 85 04/03/20 19:47 97.8 F 88 20 186/117 96 04/03/20 19:31 97.9 F 90 20 195/119 97 04/03/20 16:41 97.8 F 76 18 154/84 99 04/03/20 14:21 85 154/109 04/03/20 14:18 97.7 F 79 18 154/109 99 04/03/20 12:00 96.5 F L 85 20 164/98 99 04/03/20 10:14 92 H 181/122 04/03/20 09:41 97.6 F 90 20 182/116 97 - Physical Examination General: No Apparent Distress HEENT: Positive: PERRL Neck: Positive: neck supple Cardiac: Positive: Reg Rate and Rhythm Neuro: Positive: Grossly Intact Extremities: Absent: edema - Labs and Meds CBC 04/04/20 Range/Units 07:31 WBC 3.9 L (4.5-11.0) K/mm3 RBC 3.51 L (3.65-5.03) M/mm3 Hgb 10.3 L (11.8-15.2) gm/dl Hct 31.4 L (35.5-45.6) % Plt Count 105 L (140-440) K/mm3 Lymph # 0.5 L (1.2-5.4) K/mm3 [place] # 0.2 (0.0-0.8) K/mm3 Eos # 0.1 (0.0-0.4) K/mm3 Baso # 0.0 (0.0-0.1) K/mm3 Comprehensive Metabolic Panel 04/04/20 Range/Units 07:31 Sodium 139 (137-145) mmol/L Potassium 4.2 (3.6-5.0) mmol/L Chloride 109.2 H (98-107) mmol/L Carbon Dioxide 17 L (22-30) mmol/L BUN 44 H (9-20) mg/dL Creatinine 2.7 H (0.8-1.5) mg/dL Glucose 111 H (75-100) mg/dL Calcium 8.9 (8.4-10.2) mg/dL
[2020-04-04] MEDS: VENLAFAXINE XR 75 MG CAP PO SCH (09:32)
[2020-04-04] MEDS: OMEGA-3 FATTY ACIDS/FISH OIL 1 GRAM CAP PO SCH ×2 (09:32→21:34)
[2020-04-04] MEDS: ASPIRIN EC 325 MG TAB PO SCH (09:32)
[2020-04-04] MEDS: HEPARIN 5,000 UNIT/1 ML VIAL SUB-Q SCH ×2 (09:33→21:34)
[2020-04-04] MEDS: carvediloL 6.25 MG TAB PO SCH ×2 (09:33→21:34)
[2020-04-04] MEDS: cefTRIAXone/NS 1 GM/50 ML 1 GM/50 ML BAG IV SCH (09:33)
--- NOTE | 2020-04-04 16:08 | Progress Note ---
Assessment and Plan Assessment and plan: Acute on CKD. Patient appears to have a baseline creatinine of 2.6 in May 2019. However, patient presents to the emergency department with a creatinine of greater than 7. Nephrology following. Renal ultrasound shows evidence of medical renal disease. No evidence of obstruction or hydronephrosis. Continue to monitor BMP. Acute on chronic systolic heart failure. Echocardiogram on this admission reveals EF 20 to 25% Chest pain. Patient does have elevated troponin. However, this may be related to renal insufficiency. Continue to monitor cardiac isoenzymes. An ECG is sinus rhythm with a LBBB. Chest pain pathway. Cardiology consulted and cardiac evaluation per their recommendation. Ascending aortic aneurysm. Aneurysm measures 5.2 to 5.5 cm. Methamphetamine abuse. Patient has been counseled on cessation. Withdrawal protocols. Schizoaffective disorder. Psychiatry following. 04/01/2020. Optimize guideline directed medical therapy for heart failure per cardiology recommendations. Nephrology recommends gentle IV fluid hydration given the acute kidney injury. Await psychiatry consultation for auditory hallucinations. Cardiology recommends further follow-up with CT surgery evaluation when stable 04/02/2020. Patient with CKD IV based on previous labs. He has no acute i ndications for renal replacement therapy at this time, renal function improving on IVF. Renal US essentially shows atrophic left kidney and evidence of medical renal disease, otherwise no other acute abnormalities. Continue strict I/O and avoid all nephrotoxins. 04/03/2020. Creatinine has improved to 3.4. Continue gentle IV hydration per nephrology recommendations. Ascending aorta is dilated measuring 5.2 to 5.5 cm. Following optimization of renal status, patient will need further CT evaluation of dilated ascending aorta at discharge. Psychiatry signed off and recommends patient to be discharged on current medications. 04/04/2020 Patient is 54 yo with acute on chronic kidney disease, acute on chronic systolic CHF. Less shortness of breath. Chest pain on and off. Patient has ascending aortic aneurysm, to follow as outpatient. History Interval history: Chest pain Less shortness of breath Hospitalist Physical - Physical exam Narrative exam: GEN: Not in acute distress, obese, lying in bed HEENT: Normocephalic, atraumatic, Neck: supple, No JVD Lungs: Bilateral crackles, heart;S1 and S2 reg, no murmurs, rubs or gallop Abd:soft, non tender, non distended, normal bowel sounds, Ext: No edema,no clubbing, no cyanosis, Neuro: Awake,alert,oriented X3,No focal neurological signs - Constitutional Vitals: Temp Pulse Resp BP Pulse Ox 97.5 F L 81 22 148/74 98 04/04/20 11:22 04/04/20 13:23 04/04/20 11:22 04/04/20 13:23 04/04/20 11:22 General appearance: Present: no acute distress HEART Score - HEART Score EKG: Non-specific Age: 45-65 Risk factors: 1-2 risk factors Troponin: Troponin T 0.123 ng/mL (0.00-0.029) H* 03/31/20 07:02 Troponin: 1-3x normal limit Results - Labs CBC & Chem 7: 04/04/20 07:31 04/04/20 07:31 Labs: Laboratory Last Values WBC 3.9 K/mm3 (4.5-11.0) L 04/04/20 07:31 RBC 3.51 M/mm3 (3.65-5.03) L 04/04/20 07:31 Hgb 10.3 gm/dl (11.8-15.2) L 04/04/20 07:31 Hct 31.4 % (35.5-45.6) L 04/04/20 07:31 MCV 90 fl (84-94) 04/04/20 07:31 MCH 29 pg (28-32) 04/04/20 07:31 MCHC 33 % (32-34) 04/04/20 07:31 RDW 17.2 % (13.2-15.2) H 04/04/20 07:31 Plt Count 105 K/mm3 (140-440) L 04/04/20 07:31 Lymph % (Auto) 13.5 % (13.4-35.0) 04/04/20 07:31 [place] % (Auto) 6.3 % (0.0-7.3) 04/04/20 07:31 Eos % (Auto) 1.6 % (0.0-4.3) 04/04/20 07:31 Baso % (Auto) 0.4 % (0.0-1.8) 04/04/20 07:31 Lymph # 0.5 K/mm3 (1.2-5.4) L 04/04/20 07:31 [place] # 0.2 K/mm3 (0.0-0.8) 04/04/20 07:31 Eos # 0.1 K/mm3 (0.0-0.4) 04/04/20 07:31 Baso # 0.0 K/mm3 (0.0-0.1) 04/04/20 07:31 Seg Neutrophils % 78.2 % (40.0-70.0) H 04/04/20 07:31 Seg Neutrophils # 3.0 K/mm3 (1.8-7.7) 04/04/20 07:31 PT 14.6 Sec. (12.2-14.9) 04/01/20 04:06 INR 1.13 (0.87-1.13) 04/01/20 04:06 APTT 33.2 Sec. (24.2-36.6) 04/01/20 04:06 Heparin Anti-Xa Level 0.10 U.I./ml (0.3-0.7) L 03/31/20 20:06 Sodium 139 mmol/L (137-145) 04/04/20 07:31 Potassium 4.2 mmol/L (3.6-5.0) 04/04/20 07:31 Chloride 109.2 mmol/L (98-107) H 04/04/20 07:31 Carbon Dioxide 17 mmol/L (22-30) L 04/04/20 07:31 Anion Gap 17 mmol/L 04/04/20 07:31 BUN 44 mg/dL (9-20) H 04/04/20 07:31 Creatinine 2.7 mg/dL (0.8-1.5) H 04/04/20 07:31 Estimated GFR 25 ml/min 04/04/20 07:31 BUN/Creatinine Ratio 16 % 04/04/20 07:31 Glucose 111 mg/dL (75-100) H 04/04/20 07:31 Calcium 8.9 mg/dL (8.4-10.2) 04/04/20 07:31 Troponin T 0.123 ng/mL (0.00-0.029) H* 03/31/20 07:02 NT-Pro-B Natriuret Pep 62883 pg/mL (0-900) H 04/03/20 04:21 Triglycerides 133 mg/dL (2-149) 03/30/20 21:57 Cholesterol 166 mg/dL (50-199) 03/30/20 21:57 LDL Cholesterol Direct 119 mg/dL (50-130) 03/30/20 21:57 HDL Cholesterol 26 mg/dL (40-59) L 03/30/20 21:57 Cholesterol/HDL Ratio 6.38 % 03/30/20 21:57 Urine Color Yellow (Yellow) 03/31/20 00:29 Urine Turbidity Slightly-cloudy (Clear) 03/31/20 00: Urine pH 5.0 (5.0-7.0) 03/31/20 00: Ur Specific [place] 1.016 (1.003-1.030) 03/31/20 00: Urine Protein 100 mg/dl mg/dL (Negative) 03/31/20 00: Urine Glucose (UA) Neg mg/dL (Negative) 03/31/20 00: Urine Ketones Neg mg/dL (Negative) 03/31/20 00: Urine Blood Lg (Negative) 03/31/20 00: Urine Nitrite Neg (Negative) 03/31/20 00: Urine Bilirubin Neg (Negative) 03/31/20 00: Urine Urobilinogen < 2.0 mg/dL (<2.0) 03/31/20 00:29 Ur Leukocyte Esterase Mod (Negative) 03/31/20 00: Urine WBC (Auto) 138.0 /HPF (0.0-6.0) H 03/31/20 00: Urine RBC (Auto) 116.0 /HPF (0.0-6.0) 03/31/20: U Epithel Cells (Auto) < 1.0 /HPF (0-13.0) 03/31/20 00:29 Urine Bacteria (Auto) 2+ /HPF (Negative) 03/31/20 00: Urine WBC Clumps 2+ /HPF 03/31/20:29 Urine Mucus Few /HPF 03/31/20 00:29 Urine Opiates Screen Presumptive negative 03/31/20 00:29 Urine Methadone Screen Presumptive negative 03/31/20 00:29 Ur Barbiturates Screen Presumptive negative 03/31/20 00:29 Ur Phencyclidine Scrn Presumptive negative 03/31/20 00:29 Ur Amphetamines Screen Presumptive positive 03/31/20 00:29 U Benzodiazepines Scrn Presumptive negative 03/31/20 00:29 Urine Cocaine Screen Presumptive negative 03/31/20 00:29 U Marijuana (THC) Screen Presumptive positive 03/31/20 00:29 Drugs of Abuse Note Disclamer 03/31/20 00:29 - Diagnostic Impressions Diagnostic Impressions: Echocardiogram 03/31/20 01:22 Transthoracic Echocardiogram Indication: Chest pain BP: 130/83 HR: 72 Conclusions *There is an aneurysm of the ascending aorta, which measures 5.2-5.5 cm above the sinuses of valsalva. *Severe, 4-chamber dilated cardiomyopathy. *Global left ventricular systolic function is severely decreased. *The estimated ejection fraction is 20-25%. *Mild to moderate concentric left ventricular hypertrophy is observed. *There is mild to moderate mitral regurgitation. *There is mild aortic stenosis with amean gradient of 10. *There is mild aortic regurgitation. *There is moderate tricuspid regurgitation. *There is evidence of mild pulmonary hypertension with a PASP of 34. *A trivial pericardial effusion is visualized. Findings Left Ventricle: The left ventricular size is moderate to severely dilated. Mild to moderate concentric left ventricular hypertrophy is observed. Global left ventricular systolic function is severely decreased. The estimated ejection fraction is 20-25%. Left Atrium: The left atrium is severely dilated. Right Ventricle: The right ventricle is moderate to severely dilated. The right ventricular global systolic function is severely reduced. Right Atrium: The right atrium is moderate to severely dilated. Aortic Valve: The aortic valve is trileaflet. The aortic valve leaflets are moderately thickened. There is mild aortic regurgitation. There is mild aortic stenosis. The mean gradient of the aortic valve is 9.7 mmHg. Mitral Valve: The mitral valve leaflets are moderately thickened. There is mild to moderate mitral regurgitation. There is no evidence of mitral stenosis. Tricuspid Valve: There is moderate tricuspid regurgitation. The right ventricular systolic pressure is calculated at 34 mmHg. There is evidence of mild pulmonary hypertension. Pulmonic Valve: There is mild pulmonic regurgitation. Pericardium: A trivial pericardial effusion is visualized. Aorta: There is moderate dilatation of the ascending aorta. There is mild dilatation of the aortic root. There is an aneurysm in the ascending aorta. Venous: The inferior vena cava is dilated. Measurements Chambers 2D Name Value Normal Range IVSd (2D) 1.34 cm (0.6 - 1.1) LVPWd (2D) 1.33 cm (0.6 - 1.1) LVIDd (2D) 6 cm (3.7 - 5.6) LVIDs (2D) 5.01 cm (2 - 3.8) LV FS (2D) 16.48 % - EF Teichholz (2D) 33.97 % - Ao root diameter (2D) 4.05 cm (2 - 3.7) Volumes/Mass Name Value Normal Range LA ESV SP 4CH (A/L) 96.08 ml - LA ESV SP 2CH (A/L) 101.58 ml - LA ESV BP (A/L) 99.21 ml - LA ESV BP (A/L) index 48.16 ml/m2 - LA ESV SP 4CH (MOD) 92.31 ml - LA ESV SP 2CH (MOD) 97.78 ml - LA ESV BP (MOD) 95.38 ml - LA ESV BP (MOD) index 46.3 ml/m2 - Diastolic/Systolic Function Name Value Normal Range MV E-wave Vmax 0.92 m/sec - MV deceleration time 176.87 msec - MV A-wave Vmax 0.44 m/sec - MV E:A ratio 2.09 ratio - Aortic Valve Name Value Normal Range AV Vmax 2.21 m/sec - AV VTI 41.47 cm - AV peak gradient 19.48 mmHg - AV mean gradient 9.7 mmHg - LVOT diameter 2.2 cm - LVOT Vmax 0.86 m/sec - LVOT VTI 19.02 cm - LVOT peak gradient 2.94 mmHg - LVOT mean gradient 1.78 mmHg - SV LVOT 72.27 ml - BOBBI (continuity Vmax) 1.47 cm2 - BOBBI (continuity VTI) 1.74 cm2 - AR PHT 452.76 msec - AR peak gradient 90.78 mmHg - Ascending Ao 5.22 cm - Mitral Valve Name Value Normal Range MR Vmax 4.75 m/sec - Tricuspid Valve Name Value Normal Range TR Vmax 2.56 m/sec - TR peak gradient 26.25 mmHg - RAP 8 mmHg - RVSP 34 mmHg - IVC diameter 2.97 cm (1.2 - 2.3) Pulmonic Valve/Qp:Qs Name Value Normal Range PV Vmax 0.77 m/sec - PV peak gradient 2.38 mmHg - WV end-diastolic Vmax 0.66 m/sec - PV acceleration time 156.04 msec - Johnson/IV: Voiding Method Urinal IV Catheter Type [Left INT / Saline Lock Antecubital] Active Medications - Current Medications Current Medications: Generic Name Dose Route Start Last Admin Trade Name Freq PRN Reason Stop Dose Admin Acetaminophen 650 mg 03/31/20 01:07 04/02/20 10:29 Tylenol PO 650 mg Q4H PRN Administration Pain MILD(1-3)/Fever >100.5/SINGH Aspirin 325 mg 04/01/20 10:00 04/04/20 09:32 Ecotrin PO 325 mg QDAY JULIENNE Administration Carvedilol 6.25 mg 03/31/20 13:00 04/04/20 09:33 Coreg PO 6.25 mg BID JULIENNE Administration Fish Oil 2,000 mg 04/01/20 12:00 04/04/20 09:32 Fish Oil PO 2,000 mg BID JULIENNE Administration Heparin Sodium (Porcine) 5,000 unit 03/31/20 22:00 04/04/20 09:33 Heparin SUB-Q 5,000 unit Q12HR JULIENNE Administration Hydralazine HCl 20 mg 04/03/20 11:40 04/04/20 05:04 Apresoline IV 20 mg Q6HR PRN Administration For SBP>170 Ceftriaxone Sodium 1 gm in 50 mls @ 100 mls/hr 03/31/20 10:00 04/04/20 09:33 Rocephin/Ns 1 Gm/50 Ml IV 04/06/20 10:29 100 mls/hr Q24HR JULIENNE Administration Protocol Isosorbide Dinitrate/Hydralazine 1 each 03/31/20 22:00 04/04/20 13:23 Bidil 20/37.5mg PO 1 each Q8HR JULIENNE Administration Melatonin 5 mg 04/01/20 22:00 Melatonin PO QHS PRN Sleep Morphine Sulfate 2 mg 03/31/20 01:07 04/04/20 08:56 Morphine IV 2 mg Q5MIN PRN Administration Chest Pain Nitroglycerin 0.4 mg 03/31/20 01:07 Nitrostat SL Q5M PRN Chest Pain Olanzapine 5 mg 04/01/20 22:00 04/03/20 21:28 Zyprexa PO 5 mg QHS JULIENNE Administration Ondansetron HCl 4 mg 03/31/20 01:07 04/01/20 20:29 Zofran IV 4 mg Q8H PRN Administration Nausea And Vomiting Sodium Bicarbonate 650 mg 03/31/20 20:00 04/04/20 13:23 Sodium Bicarbonate PO 650 mg TID JULIENNE Administration Sodium Chloride 10 ml 03/31/20 10:00 04/04/20 09:34 Sodium Chloride Flush Syringe 10 Ml IV 10 ml BID JULIENNE Administration Sodium Chloride 10 ml 03/31/20 01:07 Sodium Chloride Flush Syringe 10 Ml IV PRN PRN LINE FLUSH Sorbitol 30 ml 04/03/20 09:30 Sorbitol 70% PO DAILY PRN Constipation Venlafaxine HCl 150 mg 04/02/20 12:00 04/04/20 09:32 Effexor Xr PO 150 mg QDAY JULIENNE Administration
--- NOTE | 2020-04-04 18:51 | XRay Report ---
CHEST 1 VIEW INDICATION / CLINICAL INFORMATION: Dyspnea. COMPARISON: 04/03/2020 FINDINGS: SUPPORT DEVICES: None. HEART / MEDIASTINUM: Moderately enlarged but stable. LUNGS / PLEURA: There are developing, faint areas of parenchymal density not seen yesterday which may be developing atypical pneumonia. No edema or effusion. No pneumothorax. ADDITIONAL FINDINGS: No significant additional findings. IMPRESSION: 1 Slight interval worsening Signer Name: Kurtis Turner MD Signed: 04/04/2020 9:57 AM Workstation Name: [id number]
[2020-04-04] MEDS: ACETAMINOPHEN 325 MG TAB PO PRN (21:37)
[2020-04-05] MEDS: ACETAMINOPHEN 325 MG TAB PO PRN ×2 (04:06→12:41)
[2020-04-05] MEDS: hydrALAZINE 20 MG/1 ML INJ IV PRN (04:06)
[2020-04-05] MEDS: ISOSORB DINIT/HYDRALAZINE 20-37.5MG TAB PO SCH ×3 (05:05→23:19)
[2020-04-05 05:11] LABS: Calcium 8.9 mg/dL (8.4-10.2)
[2020-04-05] MEDS: VENLAFAXINE XR 75 MG CAP PO SCH (09:09)
[2020-04-05] MEDS: OMEGA-3 FATTY ACIDS/FISH OIL 1 GRAM CAP PO SCH ×2 (09:09→23:19)
[2020-04-05] MEDS: SODIUM BICARBONATE 650 MG TAB PO SCH ×3 (09:09→23:20)
[2020-04-05] MEDS: carvediloL 6.25 MG TAB PO SCH ×2 (09:09→23:18)
[2020-04-05] MEDS: ASPIRIN EC 325 MG TAB PO SCH (09:09)
[2020-04-05] MEDS: cefTRIAXone/NS 1 GM/50 ML 1 GM/50 ML BAG IV SCH (09:09)
[2020-04-05] MEDS: HEPARIN 5,000 UNIT/1 ML VIAL SUB-Q SCH ×2 (09:10→23:22)
--- NOTE | 2020-04-05 10:23 | Progress Note ---
Assessment and Plan Acute on chronic systolic heart failure echocardiogram shows a left ventricular ejection fraction of 20 to 25%. Ascending aortic aneurysm the ascending aorta is dilated, measures 5.2 to 5.5 cm. Renal failure Hypertension Substance abuse Advised sodium/fluid restrictions. Continue medical management for chronic heart failure as tolerated. Following full assessment and optimization of the renal status, he will need further CT surgery evaluation of the dilated ascending aorta. Subjective Date of service: 04/05/20 Principal diagnosis: JEANNIE Interval history: No cardiac complaints. Objective Vital Signs Temp Pulse Pulse Resp BP BP Pulse Ox 04/05/20 09:09 99 H 136/66 04/05/20 08:52 86 15 97 04/05/20 07:36 98.6 F 99 H 20 136/99 99 04/05/20 04:24 97.8 F 96 H 20 168/113 98 04/05/20 04:06 168/113 04/05/20 03:55 97.7 F 20 168/113 04/05/20 00:00 80 04/04/20 23:01 97.7 F 98 H 20 123/81 99 04/04/20 20:35 190/111 04/04/20 19:40 97.6 F 94 H 20 190/111 96 04/04/20 15:40 97.8 F 80 22 165/105 96 04/04/20 13:23 81 148/74 04/04/20 11:22 97.5 F L 79 22 141/92 98 - Physical Examination General: No Apparent Distress HEENT: Positive: PERRL Neck: Positive: neck supple Cardiac: Positive: Reg Rate and Rhythm Neuro: Positive: Grossly Intact - Labs and Meds Comprehensive Metabolic Panel 04/05/20 Range/Units 04:18 Sodium 141 (137-145) mmol/L Potassium 4.2 (3.6-5.0) mmol/L Chloride 106.6 (98-107) mmol/L Carbon Dioxide 19 L (22-30) mmol/L BUN 41 H (9-20) mg/dL Creatinine 2.7 H (0.8-1.5) mg/dL Glucose 106 H (75-100) mg/dL Calcium 8.9 (8.4-10.2) mg/dL
--- NOTE | 2020-04-05 10:29 | Progress Note ---
Assessment and Plan - Patient Problems (1) Acute kidney injury superimposed on CKD Current Visit: Yes Status: Acute Plan to address problem: kidney function is unchanged. Follow-up electrolytes and renal function. (2) Ascending aortic aneurysm Current Visit: Yes Status: Acute Plan to address problem: cardiology appreciated. I discussed with hair machine operator yesterday about plans and benefits and risk. For evaluation by CT surgery after optimizing renal function. Kidney function may have stabilized ask question baseline. Patient is at increased risk post vascular surgery acute tubular necrosis which may be dialysis requiring. Discussed this with the patient and he understands the benefits and risks. (3) Substance use disorder Current Visit: Yes Status: Acute Plan to address problem: counseling on cessation (4) Hypertensive chronic kidney disease with stage 1 through stage 4 chronic kidney disease, or unspecified chronic kidney disease Current Visit: Yes Status: Chronic Plan to address problem: blood pressure is controlled.. Follow blood pressure on current medications (5) Chronic CHF (congestive heart failure) Current Visit: Yes Status: Chronic Plan to address problem: Dyspnea has resolved with IV Lasix. Patient is stable today. Continue to mon itor volume status (6) Anemia in chronic kidney disease Current Visit: Yes Status: Acute Plan to address problem: hemoglobin stable. Followup Subjective Date of service: 04/05/20 Principal diagnosis: JEANNIE Interval history: patient seen lying in bed. shortness of breath resolving. No nausea or vomiting today. Complains of headache Objective - Exam Narrative Exam: middle-aged male in no acute distress HEENT: Normocephalic atraumatic, pupils equal round reactive to light Normal oropharynx, Neck: Supple, no venous distention, no goiter CVS: S1S2 RRR No murmur, No rub or gallop Lungs: Clear to auscultation, no use of accessory muscles of respiration Abdomen: Full, soft, nontender, no organomegaly no bruit, bowel sounds are present Extremities: No edema, no cyanosis or clubbing Urinary: Deferred Musculo-skeletal: No joint deformities or swelling Neuro: Awake, alert, no focal deficits - Vital Signs Vital signs: Vital Signs - 12hr 04/04/20 04/05/20 04/05/20 23:01 00:00 03:55 Temperature 97.7 F 97.7 F Pulse Rate 98 H 80 Pulse Rate [ From Monitor] Respiratory 20 20 Rate Blood Pressure 123/81 168/113 Blood Pressure [Right] O2 Sat by Pulse 99 Oximetry 04/05/20 04/05/20 04/05/20 04:06 04:24 07:36 Temperature 97.8 F 98.6 F Pulse Rate 96 H 99 H Pulse Rate [ From Monitor] Respiratory 20 20 Rate Blood Pressure 168/113 136/99 Blood Pressure 168/113 [Right] O2 Sat by Pulse 98 99 Oximetry 04/05/20 04/05/20 08:52 09:09 Temperature Pulse Rate 99 H Pulse Rate [ 86 From Monitor] Respiratory 15 Rate Blood Pressure 136/66 Blood Pressure [Right] O2 Sat by Pulse 97 Oximetry - Lab 04/04/20 07:31 04/05/20 04:18 Most recent lab results Calcium 8.9 mg/dL (8.4-10.2) 04/05/20 04:18 Magnesium 1.90 mg/dL (1.7-2.3) 04/05/20 04:18 Medications & Allergies - Medications Allergies/Adverse Reactions: Allergies Sulfa (Sulfonamide Antibiotics) Allergy (Verified 06/02/19 23:12) Hives sulfamethoxazole [From Bactrim] Allergy (Verified 06/02/19 23:12) Hives trimethoprim [From Bactrim] Allergy (Verified 06/02/19 23:12) Hives Home Medications: Home Medications Medication Instructions Recorded Confirmed Last Taken Type Ciprofloxacin HCl [Ciprofloxacin 500 mg PO BID 10 Days #20 tab 06/03/19 Unknown Rx TAB] Omeprazole 40 mg PO DAILY #30 capsule. 06/03/19 Unknown Rx Tamsulosin [Flomax] 0.4 mg PO QDAY #12 cap 06/03/19 Unknown Rx amLODIPine 10 mg PO DAILY #30 tab 06/03/19 Unknown Rx traMADoL [Ultram] 50 mg PO Q6HR PRN #12 tablet 06/03/19 Unknown Rx Active Medications: Generic Name Dose Route Start Last Admin Trade Name Freq PRN Reason Stop Dose Admin Acetaminophen 650 mg 03/31/20 01:07 04/05/20 04:06 Tylenol PO 650 mg Q4H PRN Administration Pain MILD(1-3)/Fever >100.5/SINGH Aspirin 325 mg 04/01/20 10:00 04/05/20 09:09 Ecotrin PO 325 mg QDAY JULIENNE Administration Carvedilol 6.25 mg 03/31/20 13:00 04/05/20 09:09 Coreg PO 6.25 mg BID JULIENNE Administration Fish Oil 2,000 mg 04/01/20 12:00 04/05/20 09:09 Fish Oil PO 2,000 mg BID JULIENNE Administration Heparin Sodium (Porcine) 5,000 unit 03/31/20 22:00 04/05/20 09:10 Heparin SUB-Q 5,000 unit Q12HR JULIENNE Administration Hydralazine HCl 20 mg 04/03/20 11:40 04/05/20 04:06 Apresoline IV 20 mg Q6HR PRN Administration For SBP>170 Ceftriaxone Sodium 1 gm in 50 mls @ 100 mls/hr 03/31/20 10:00 04/05/20 09:09 Rocephin/Ns 1 Gm/50 Ml IV 04/06/20 10:29 100 mls/hr Q24HR JULIENNE Administration Protocol Isosorbide Dinitrate/Hydralazine 1 each 03/31/20 22:00 04/05/20 05:05 Bidil 20/37.5mg PO 1 each Q8HR JULIENNE Administration Melatonin 5 mg 04/01/20 22:00 Melatonin PO QHS PRN Sleep Morphine Sulfate 2 mg 03/31/20 01:07 04/04/20 08:56 Morphine IV 2 mg Q5MIN PRN Administration Chest Pain Nitroglycerin 0.4 mg 03/31/20 01:07 Nitrostat SL Q5M PRN Chest Pain Olanzapine 5 mg 04/01/20 22:00 04/04/20 21:33 Zyprexa PO 5 mg QHS JULIENNE Administration Ondansetron HCl 4 mg 03/31/20 01:07 04/01/20 20:29 Zofran IV 4 mg Q8H PRN Administration Nausea And Vomiting Sodium Bicarbonate 650 mg 03/31/20 20:00 04/05/20 09:09 Sodium Bicarbonate PO 650 mg TID JULIENNE Administration Sodium Chloride 10 ml 03/31/20 10:00 04/05/20 09:10 Sodium Chloride Flush Syringe 10 Ml IV 10 ml BID JULIENNE Administration Sodium Chloride 10 ml 03/31/20 01:07 Sodium Chloride Flush Syringe 10 Ml IV PRN PRN LINE FLUSH Sorbitol 30 ml 04/03/20 09:30 Sorbitol 70% PO DAILY PRN Constipation Venlafaxine HCl 150 mg 04/02/20 12:00 04/05/20 09:09 Effexor Xr PO 150 mg QDAY JULIENNE Administration
--- NOTE | 2020-04-05 11:07 | Progress Note ---
Assessment and Plan Assessment and plan: Acute on CKD. Patient appears to have a baseline creatinine of 2.6 in May 2019. However, patient presents to the emergency department with a creatinine of greater than 7. Nephrology following. Renal ultrasound shows evidence of medical renal disease. No evidence of obstruction or hydronephrosis. Continue to monitor BMP. Acute on chronic systolic heart failure. Echocardiogram on this admission reveals EF 20 to 25% Chest pain. Patient does have elevated troponin. However, this may be related to renal insufficiency. Continue to monitor cardiac isoenzymes. An ECG is sinus rhythm with a LBBB. Chest pain pathway. Cardiology consulted and cardiac evaluation per their recommendation. Ascending aortic aneurysm. Aneurysm measures 5.2 to 5.5 cm. Methamphetamine abuse. Patient has been counseled on cessation. Withdrawal protocols. Schizoaffective disorder. Psychiatry following. 04/01/2020. Optimize guideline directed medical therapy for heart failure per cardiology recommendations. Nephrology recommends gentle IV fluid hydration given the acute kidney injury. Await psychiatry consultation for auditory hallucinations. Cardiology recommends further follow-up with CT surgery evaluation when stable 04/02/2020. Patient with CKD IV based on previous labs. He has no acute i ndications for renal replacement therapy at this time, renal function improving on IVF. Renal US essentially shows atrophic left kidney and evidence of medical renal disease, otherwise no other acute abnormalities. Continue strict I/O and avoid all nephrotoxins. 04/03/2020. Creatinine has improved to 3.4. Continue gentle IV hydration per nephrology recommendations. Ascending aorta is dilated measuring 5.2 to 5.5 cm. Following optimization of renal status, patient will need further CT evaluation of dilated ascending aorta at discharge. Psychiatry signed off and recommends patient to be discharged on current medications. 04/04/2020 Patient is 54 yo with acute on chronic kidney disease, acute on chronic systolic CHF. Less shortness of breath. Chest pain on and off. Patient has ascending aortic aneurysm. 04/05/2020 Patient is 54 yo with acute on chronic kidney disease, acute on chr onic systolic CHF. Less shortness of breath. Patient has ascending aortic aneurysm. Cardiology recommends transfer to [place] for evaluation of aneurysm. History Interval history: Chest pain Less shortness of breath Hospitalist Physical - Physical exam Narrative exam: GEN: Not in acute distress, obese, lying in bed HEENT: Normocephalic, atraumatic, Neck: supple, No JVD Lungs: Bilateral crackles, heart;S1 and S2 reg, no murmurs, rubs or gallop Abd:soft, non tender, non distended, normal bowel sounds, Ext: No edema,no clubbing, no cyanosis, Neuro: Awake,alert,oriented X3,No focal neurological signs - Constitutional Vitals: Temp Pulse Resp BP Pulse Ox 98.6 F 99 H 15 136/66 97 04/05/20 07:36 04/05/20 09:09 04/05/20 08:52 04/05/20 09:09 04/05/20 08:52 General appearance: Present: no acute distress HEART Score - HEART Score EKG: Non-specific Age: 45-65 Risk factors: 1-2 risk factors Troponin: Troponin T 0.123 ng/mL (0.00-0.029) H* 03/31/20 07:02 Troponin: 1-3x normal limit Results - Labs CBC & Chem 7: 04/06/20 03:53 04/05/20 04:18 Labs: Laboratory Last Values WBC 3.9 K/mm3 (4.5-11.0) L 04/04/20 07:31 RBC 3.51 M/mm3 (3.65-5.03) L 04/04/20 07:31 Hgb 10.3 gm/dl (11.8-15.2) L 04/04/20 07:31 Hct 31.4 % (35.5-45.6) L 04/04/20 07:31 MCV 90 fl (84-94) 04/04/20 07:31 MCH 29 pg (28-32) 04/04/20 07:31 MCHC 33 % (32-34) 04/04/20 07:31 RDW 17.2 % (13.2-15.2) H 04/04/20 07:31 Plt Count 105 K/mm3 (140-440) L 04/04/20 07:31 Lymph % (Auto) 13.5 % (13.4-35.0) 04/04/20 07:31 [place] % (Auto) 6.3 % (0.0-7.3) 04/04/20 07:31 Eos % (Auto) 1.6 % (0.0-4.3) 04/04/20 07:31 Baso % (Auto) 0.4 % (0.0-1.8) 04/04/20 07:31 Lymph # 0.5 K/mm3 (1.2-5.4) L 04/04/20 07:31 [place] # 0.2 K/mm3 (0.0-0.8) 04/04/20 07:31 Eos # 0.1 K/mm3 (0.0-0.4) 04/04/20 07:31 Baso # 0.0 K/mm3 (0.0-0.1) 04/04/20 07:31 Seg Neutrophils % 78.2 % (40.0-70.0) H 04/04/20 07:31 Seg Neutrophils # 3.0 K/mm3 (1.8-7.7) 04/04/20 07:31 PT 14.6 Sec. (12.2-14.9) 04/01/20 04:06 INR 1.13 (0.87-1.13) 04/01/20 04:06 APTT 33.2 Sec. (24.2-36.6) 04/01/20 04:06 Heparin Anti-Xa Level 0.10 U.I./ml (0.3-0.7) L 03/31/20 20:06 Sodium 141 mmol/L (137-145) 04/05/20 04:18 Potassium 4.2 mmol/L (3.6-5.0) 04/05/20 04:18 Chloride 106.6 mmol/L (98-107) 04/05/20 04:18 Carbon Dioxide 19 mmol/L (22-30) L 04/05/20 04:18 Anion Gap 20 mmol/L 04/05/20 04:18 BUN 41 mg/dL (9-20) H 04/05/20 04:18 Creatinine 2.7 mg/dL (0.8-1.5) H 04/05/20 04:18 Estimated GFR 25 ml/min 04/05/20 04:18 BUN/Creatinine Ratio 15 % 04/05/20 04:18 Glucose 106 mg/dL (75-100) H 04/05/20 04:18 Calcium 8.9 mg/dL (8.4-10.2) 04/05/20 04:18 Magnesium 1.90 mg/dL (1.7-2.3) 04/05/20 04:18 Troponin T 0.123 ng/mL (0.00-0.029) H* 03/31/20 07:02 NT-Pro-B Natriuret Pep 30591 pg/mL (0-900) H 04/03/20 04:21 Triglycerides 133 mg/dL (2-149) 03/30/20 21:57 Cholesterol 166 mg/dL (50-199) 03/30/20 21:57 LDL Cholesterol Direct 119 mg/dL (50-130) 03/30/20 21:57 HDL Cholesterol 26 mg/dL (40-59) L 03/30/20 21:57 Cholesterol/HDL Ratio 6.38 % 03/30/20 21:57 Urine Color Yellow (Yellow) 03/31/20 00: Urine Turbidity Slightly-cloudy (Clear) 03/31/20 00: Urine pH 5.0 (5.0-7.0) 03/31/20 00: Ur Specific [place] 1.016 (1.003-1.030) 03/31/20 00: Urine Protein 100 mg/dl mg/dL (Negative) 03/31/20 00: Urine Glucose (UA) Neg mg/dL (Negative) 03/31/20 00: Urine Ketones Neg mg/dL (Negative) 03/31/20 00: Urine Blood Lg (Negative) 03/31/20: Urine Nitrite Neg (Negative) 03/31/20 00: Urine Bilirubin Neg (Negative) 03/31/20 00: Urine Urobilinogen < 2.0 mg/dL (<2.0) 03/31/20 00:29 Ur Leukocyte Esterase Mod (Negative) 03/31/20 00: Urine WBC (Auto) 138.0 /HPF (0.0-6.0) H 03/31/20 00: Urine RBC (Auto) 116.0 /HPF (0.0-6.0) 03/31/20: U Epithel Cells (Auto) < 1.0 /HPF (0-13.0) 03/31/20 00: Urine Bacteria (Auto) 2+ /HPF (Negative) 03/31/20 00: Urine WBC Clumps 2+ /HPF 03/31/20 00: Urine Mucus Few /HPF 03/31/20 00:29 Urine Opiates Screen Presumptive negative 03/31/20 00:29 Urine Methadone Screen Presumptive negative 03/31/20 00:29 Ur Barbiturates Screen Presumptive negative 03/31/20 00:29 Ur Phencyclidine Scrn Presumptive negative 03/31/20 00:29 Ur Amphetamines Screen Presumptive positive 03/31/20 00:29 U Benzodiazepines Scrn Presumptive negative 03/31/20 00:29 Urine Cocaine Screen Presumptive negative 03/31/20 00:29 U Marijuana (THC) Screen Presumptive positive 03/31/20 00:29 Drugs of Abuse Note Disclamer 03/31/20 00:29 - Diagnostic Impressions Diagnostic Impressions: Echocardiogram 03/31/20 01:22 Transthoracic Echocardiogram Indication: Chest pain BP: 130/83 HR: 72 Conclusions *There is an aneurysm of the ascending aorta, which measures 5.2-5.5 cm above the sinuses of valsalva. *Severe, 4-chamber dilated cardiomyopathy. *Global left ventricular systolic function is severely decreased. *The estimated ejection fraction is 20-25%. *Mild to moderate concentric left ventricular hypertrophy is observed. *There is mild to moderate mitral regurgitation. *There is mild aortic stenosis with amean gradient of 10. *There is mild aortic regurgitation. *There is moderate tricuspid regurgitation. *There is evidence of mild pulmonary hypertension with a PASP of 34. *A trivial pericardial effusion is visualized. Findings Left Ventricle: The left ventricular size is moderate to severely dilated. Mild to moderate concentric left ventricular hypertrophy is observed. Global left ventricular systolic function is severely decreased. The estimated ejection fraction is 20-25%. Left Atrium: The left atrium is severely dilated. Right Ventricle: The right ventricle is moderate to severely dilated. The right ventricular global systolic function is severely reduced. Right Atrium: The right atrium is moderate to severely dilated. Aortic Valve: The aortic valve is trileaflet. The aortic valve leaflets are moderately thickened. There is mild aortic regurgitation. There is mild aortic stenosis. The mean gradient of the aortic valve is 9.7 mmHg. Mitral Valve: The mitral valve leaflets are moderately thickened. There is mild to moderate mitral regurgitation. There is no evidence of mitral stenosis. Tricuspid Valve: There is moderate tricuspid regurgitation. The right ventricular systolic pressure is calculated at 34 mmHg. There is evidence of mild pulmonary hypertension. Pulmonic Valve: There is mild pulmonic regurgitation. Pericardium: A trivial pericardial effusion is visualized. Aorta: There is moderate dilatation of the ascending aorta. There is mild dilatation of the aortic root. There is an aneurysm in the ascending aorta. Venous: The inferior vena cava is dilated. Measurements Chambers 2D Name Value Normal Range IVSd (2D) 1.34 cm (0.6 - 1.1) LVPWd (2D) 1.33 cm (0.6 - 1.1) LVIDd (2D) 6 cm (3.7 - 5.6) LVIDs (2D) 5.01 cm (2 - 3.8) LV FS (2D) 16.48 % - EF Teichholz (2D) 33.97 % - Ao root diameter (2D) 4.05 cm (2 - 3.7) Volumes/Mass Name Value Normal Range LA ESV SP 4CH (A/L) 96.08 ml - LA ESV SP 2CH (A/L) 101.58 ml - LA ESV BP (A/L) 99.21 ml - LA ESV BP (A/L) index 48.16 ml/m2 - LA ESV SP 4CH (MOD) 92.31 ml - LA ESV SP 2CH (MOD) 97.78 ml - LA ESV BP (MOD) 95.38 ml - LA ESV BP (MOD) index 46.3 ml/m2 - Diastolic/Systolic Function Name Value Normal Range MV E-wave Vmax 0.92 m/sec - MV deceleration time 176.87 msec - MV A-wave Vmax 0.44 m/sec - MV E:A ratio 2.09 ratio - Aortic Valve Name Value Normal Range AV Vmax 2.21 m/sec - AV VTI 41.47 cm - AV peak gradient 19.48 mmHg - AV mean gradient 9.7 mmHg - LVOT diameter 2.2 cm - LVOT Vmax 0.86 m/sec - LVOT VTI 19.02 cm - LVOT peak gradient 2.94 mmHg - LVOT mean gradient 1.78 mmHg - SV LVOT 72.27 ml - BOBBI (continuity Vmax) 1.47 cm2 - BOBBI (continuity VTI) 1.74 cm2 - AR PHT 452.76 msec - AR peak gradient 90.78 mmHg - Ascending Ao 5.22 cm - Mitral Valve Name Value Normal Range MR Vmax 4.75 m/sec - Tricuspid Valve Name Value Normal Range TR Vmax 2.56 m/sec - TR peak gradient 26.25 mmHg - RAP 8 mmHg - RVSP 34 mmHg - IVC diameter 2.97 cm (1.2 - 2.3) Pulmonic Valve/Qp:Qs Name Value Normal Range PV Vmax 0.77 m/sec - PV peak gradient 2.38 mmHg - WA end-diastolic Vmax 0.66 m/sec - PV acceleration time 156.04 msec - Johnson/IV: Voiding Method Urinal IV Catheter Type [Left INT / Saline Lock Antecubital] Active Medications - Current Medications Current Medications: Generic Name Dose Route Start Last Admin Trade Name Freq PRN Reason Stop Dose Admin Acetaminophen 650 mg 03/31/20 01:07 04/05/20 04:06 Tylenol PO 650 mg Q4H PRN Administration Pain MILD(1-3)/Fever >100.5/SINGH Aspirin 325 mg 04/01/20 10:00 04/05/20 09:09 Ecotrin PO 325 mg QDAY JULIENNE Administration Carvedilol 6.25 mg 03/31/20 13:00 04/05/20 09:09 Coreg PO 6.25 mg BID JULIENNE Administration Fish Oil 2,000 mg 04/01/20 12:00 04/05/20 09:09 Fish Oil PO 2,000 mg BID JULIENNE Administration Heparin Sodium (Porcine) 5,000 unit 03/31/20 22:00 04/05/20 09:10 Heparin SUB-Q 5,000 unit Q12HR JULIENNE Administration Hydralazine HCl 20 mg 04/03/20 11:40 04/05/20 04:06 Apresoline IV 20 mg Q6HR PRN Administration For SBP>170 Ceftriaxone Sodium 1 gm in 50 mls @ 100 mls/hr 03/31/20 10:00 04/05/20 09:09 Rocephin/Ns 1 Gm/50 Ml IV 04/06/20 10:29 100 mls/hr Q24HR JULIENNE Administration Protocol Isosorbide Dinitrate/Hydralazine 1 each 03/31/20 22:00 04/05/20 05:05 Bidil 20/37.5mg PO 1 each Q8HR JULIENNE Administration Melatonin 5 mg 04/01/20 22:00 Melatonin PO QHS PRN Sleep Morphine Sulfate 2 mg 03/31/20 01:07 04/04/20 08:56 Morphine IV 2 mg Q5MIN PRN Administration Chest Pain Nitroglycerin 0.4 mg 03/31/20 01:07 Nitrostat SL Q5M PRN Chest Pain Olanzapine 5 mg 04/01/20 22:00 04/04/20 21:33 Zyprexa PO 5 mg QHS JULIENNE Administration Ondansetron HCl 4 mg 03/31/20 01:07 04/01/20 20:29 Zofran IV 4 mg Q8H PRN Administration Nausea And Vomiting Sodium Bicarbonate 650 mg 03/31/20 20:00 04/05/20 09:09 Sodium Bicarbonate PO 650 mg TID JULIENNE Administration Sodium Chloride 10 ml 03/31/20 10:00 04/05/20 09:10 Sodium Chloride Flush Syringe 10 Ml IV 10 ml BID JULIENNE Administration Sodium Chloride 10 ml 03/31/20 01:07 Sodium Chloride Flush Syringe 10 Ml IV PRN PRN LINE FLUSH Sorbitol 30 ml 04/03/20 09:30 Sorbitol 70% PO DAILY PRN Constipation Venlafaxine HCl 150 mg 04/02/20 12:00 04/05/20 09:09 Effexor Xr PO 150 mg QDAY JULIENNE Administration
--- NOTE | 2020-04-05 12:12 | Consultation ---
History of Present Illness - Reason for Consult Consult date: 04/05/20 Thoracic Aortic Aneurysm Requesting physician: LETY STRINGER - History of Present Illness The patient is a 54-year-old male with a history of hypertension, CHF, and chronic renal insufficiency secondary to kidney stones who presented to the emergency department with complaints of chest pain and shortness of breath. He states that the episode of chest pain began approximately 1 week prior to his presentation however he states that he has frequent bouts of chest pain, that are similar to this, whenever he gets upset or worked up. He states the chest pain is substernal and does not radiate. He also states that he has a history of drug abuse and has recently relapsed and been using methamphetamines for the past 3 months. Since his admission his work-up has included a transthoracic ec hocardiogram that revealed an ascending thoracic aortic aneurysm measuring 5.2 to 5.5 cm. He was also found to be in congestive heart failure with a BNP greater than 32,000 and an acute on chronic renal failure with a creatinine greater than 5 however he has returned to his baseline creatinine of 2.7. The patient states that he has been suffering from the shortness of breath for approximately 1 year however that has progressively worsened and has limited his daily activity and prevented him from being able to be employed. He has no additional complaints at this time. Past History Past Medical History: COPD, heart failure, hypertension, renal failure, other (History of kidney stone,TB) Past Surgical History: Other (Lithotripsy in the past) Social history: smoking (1 pack/day for greater than 30 years), alcohol abuse, other (marijuana use, methamphetamine use) Family history: no significant family history Medications and Allergies Allergies Allergy/AdvReac Type Severity Reaction Status Date / Time Sulfa (Sulfonamide Allergy Hives Verified 06/02/19 23:12 Antibiotics) sulfamethoxazole Allergy Hives Verified 06/02/19 23:12 [From Bactrim] trimethoprim [From Bactrim] Allergy Hives Verified 06/02/19 23:12 Home Medications Medication Instructions Recorded Confirmed Last Taken Type Ciprofloxacin HCl [Ciprofloxacin 500 mg PO BID 10 Days #20 tab 06/03/19 Unknown Rx TAB] Omeprazole 40 mg PO DAILY #30 capsule. 06/03/19 Unknown Rx Tamsulosin [Flomax] 0.4 mg PO QDAY #12 cap 07/18/19 Unknown Rx amLODIPine 10 mg PO DAILY #30 tab 06/03/19 Unknown Rx traMADoL [Ultram] 50 mg PO Q6HR PRN #12 tablet 06/03/19 Unknown Rx Active Meds: Active Medications Acetaminophen (Tylenol) 650 mg PO Q4H PRN PRN Reason: Pain MILD(1-3)/Fever >100.5/SINGH Last Admin: 04/05/20 04:06 Dose: 650 mg Documented by: Aspirin (Ecotrin) [address] [facility] Last Admin: 04/05/20 09:09 Dose: 325 mg Documented by: Carvedilol (Coreg) 6.[address] [facility] Last Admin: 04/05/20 09:09 Dose: 6.25 mg Documented by: Fish Oil (Fish Oil) 2,[address] [facility] Last Admin: 04/05/20 09:09 Dose: 2,000 mg Documented by: Heparin Sodium (Porcine) (Heparin) 5,000 unit SUB-Q Q12HR [facility] Last Admin: 04/05/20 09:10 Dose: 5,000 unit Documented by: Hydralazine HCl (Apresoline) 20 mg IV Q6HR PRN PRN Reason: For SBP>170 Last Admin: 04/05/20 04:06 Dose: 20 mg Documented by: Ceftriaxone Sodium (Rocephin/Ns 1 Gm/50 Ml) 1 gm in 50 mls @ 100 mls/hr IV Q24HR [facility]; Protocol Stop: 04/06/20 10:29 Last Admin: 04/05/20 09:09 Dose: 100 mls/hr Documented by: Isosorbide Dinitrate/Hydralazine (Bidil 20/37.5mg) [address] [facility] Last Admin: 04/05/20 05:05 Dose: 1 each Documented by: Melatonin (Melatonin) 5 mg PO QHS PRN PRN Reason: Sleep Morphine Sulfate (Morphine) 2 mg IV Q5MIN PRN PRN Reason: Chest Pain Last Admin: 04/04/20 08:56 Dose: 2 mg Documented by: Nitroglycerin (Nitrostat) 0.4 mg SL Q5M PRN PRN Reason: Chest Pain Olanzapine (Zyprexa) [address] [facility] Last Admin: 04/04/20 21:33 Dose: 5 mg Documented by: Ondansetron HCl (Zofran) 4 mg IV Q8H PRN PRN Reason: Nausea And Vomiting Last Admin: 04/01/20 20:29 Dose: 4 mg Documented by: Sodium Bicarbonate (Sodium Bicarbonate) [address] [facility] Last Admin: 04/05/20 09:09 Dose: 650 mg Documented by: Sodium Chloride (Sodium Chloride Flush Syringe 10 Ml) [address] [facility] Last Admin: 04/05/20 09:10 Dose: 10 ml Documented by: Sodium Chloride (Sodium Chloride Flush Syringe 10 Ml) 10 ml IV PRN PRN PRN Reason: LINE FLUSH Sorbitol (Sorbitol 70%) 30 ml PO DAILY PRN PRN Reason: Constipation Venlafaxine HCl (Effexor Xr) [address] [facility] Last Admin: 04/05/20 09:09 Dose: 150 mg Documented by: Review of Systems Constitutional: fatigue, malaise, no weight loss, no fever, no chills Ears, nose, mouth and throat: deferred Cardiovascular: chest pain, lightheadedness (With bending over), shortness of breath, dyspnea on exertion, high blood pressure, decreased exercise tolerance, no claudication Respiratory: dyspnea on exertion, no cough Gastrointestinal: no abdominal pain, no nausea, no vomiting, no hematemesis, no BRBPR Genitourinary Male: no hematuria, no flank pain Rectal: no pain, no incontinence Musculoskeletal: no shooting arm pain, no arm numbness/tingling, no shooting leg pain, no leg numbness/tingling Integumentary: deferred Neurological: no weakness, no parathesias, no numbness, no tingling Psychiatric: anxiety Exam - Constitutional Vitals: Temp Pulse Resp BP Pulse Ox 98.1 F 88 16 141/100 96 04/05/20 10:49 04/05/20 10:49 04/05/20 10:49 04/05/20 10:49 04/05/20 10:49 General appearance: Present: no acute distress - Neck Neck: Present: supple - Respiratory Respiratory effort: normal - Cardiovascular Rhythm: regular - Extremities Extremities: no ischemia, pulses intact (Palpable posterior tibial and dorsalis pedis pulses bilaterally, palpable radial pulses bilaterally left greater than right), pulses symmetrical, No edema (Bilateral lower extremities) - Abdominal General gastrointestinal: Present: soft, non-tender, non-distended, other (No palpable pulsatile masses) Male genitourinary: Present: deferred - Rectal Rectal Exam: deferred - Integumentary Integumentary: Present: clear - Musculoskeletal Musculoskeletal: strength equal bilaterally - Psychiatric Psychiatric: appropriate mood/affect, intact judgment & insight, cooperative Results - Labs CBC & Chem 7: 04/04/20 07:31 04/05/20 04:18 Labs: Abnormal lab results 04/05/20 Range/Units 04:18 Carbon Dioxide 19 L (22-30) mmol/L BUN 41 H (9-20) mg/dL Creatinine 2.7 H (0.8-1.5) mg/dL Glucose 106 H (75-100) mg/dL - Imaging and Cardiology CT scan - abdomen: image reviewed (CT abdomen and pelvis June 03, 2019 films were reviewed and there was no evidence of aneurysmal dilatation of the visualized portion of the descending thoracic aortic aneurysm or the abdominal aortic aneurysm.) Assessment and Plan The patient is a 54-year-old male with multiple medical problems who presented t o the emergency department with complaints of chest pain and shortness of breath. The transthoracic echocardiogram revealed an aneurysm of his ascending thoracic aortic aneurysm measuring 5.2 to 5.5 cm. Given the patient's chest pain, location, and initial presentation of acute on chronic renal failure with associated uncontrolled hypertension the patient needs additional imaging to evaluate the size of his aorta as well as to rule out possible acute aortic syndrome including penetrating ulcer and aortic dissection. Given the patient's baseline renal failure he likely cannot undergo a CTA of his chest, abdomen and pelvis show the next best modality would be an MRA with gadolinium. Recommendations about the patient's definitive care will be based on the findings of further imaging however a CT surgery follow-up will be required for management of an ascending thoracic aneurysm. The threshold for surgical management for elective repair of an ascending thoracic aneurysm is 5.5 cm. Ad ditionally medical management for patients with aortic aneurysms, to lower the risk of expansion and eventually rupture include smoking cessation to avoid COPD, control of hypertension with a systolic blood pressure less than 120 if this does not worsen his renal failure, and beta-blockade to reduce the heart rate to less than 70. Additionally the patient should be on a statin.
--- NOTE | 2020-04-05 12:47 | Discharge Summary ---
Providers - Providers Date of Admission: 03/31/20 00:30 Date of discharge: 04/05/20 Attending physician: LETY STRINGER 03/31/20 Consult to Cardiac Rehabilitation [CONS] Routine Reason For Exam: Phase I 03/31/20 01:07 Consult to Physician [CONS] Routine Comment: Consulting Provider: HALI SPRING Physician Instructions: Reason For Exam: chest pain 03/31/20 01:24 Consult to Physician [CONS] Routine Comment: Consulting Provider: SHEY AVINA Physician Instructions: Reason For Exam: acute kidney injury 03/31/20 12:37 psychiatry consult [Consult to Mental Health] [CONS] Routine Reason For Exam: Auditort hallucinations 04/05/20 10:36 Consult to Physician [CONS] Routine Comment: Consulting Provider: IRENE STALLWORTH Physician Instructions: Reason For Exam: Ascending thoracic aneurysm 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 Chest pain is said to be worse on exertion and improved some a resting. He also indicates paul t he has been having anxiety attacks lately. He admits to using methamphetamine over the past few months and stopped the use about 4 days ago. Chest pain is substernal and there is no radiation. Patient denies any fever or chills, no nausea vomiting, no headache or dizziness, no hematuria but has had some dysuria. He denies any sick contacts and no recent travel. Denies contacts with anyone with COVID-19. he was seen and evaluated in ED. Labs show Cr 7.1. he was diagnosed with acute on chronic kidney disease, acute on chronic systolic CHF. he was admitted, evaluated by Cardiology, Nephrology. Echo revealed ascending aortic aneurysm 5.2 - 5.5 cm. He was treated with Coreg, ceftriaxone. Creatinine improved, went down to 2.7. patient improved, has less shortness of breath. For aneurysm, cardiology discussed with Physician at [facility] and arrangements made to transfer to [place] for evaluation of ascending aortic aneurysm. Acute on CKD. Patient appears to have a baseline creatinine of 2.6 in May 2019. However, patient presents to the emergency department with a creatinine of greater than 7. Nephrology following. Renal ultrasound shows evidence of medical renal disease. No evidence of obstruction or hydronephrosis. Continue to monitor BMP. Acute on chronic systolic heart failure. Echocardiogram on this admission reveals EF 20 to 25% Chest pain. Patient does have elevated troponin. However, this may be related to renal insufficiency. Continue to monitor cardiac isoenzymes. An ECG is sinus rhythm with a LBBB. Chest pain pathway. Cardiology consulted and cardiac evaluation per their recommendation. Ascending aortic aneurysm. Aneurysm measures 5.2 to 5.5 cm. Methamphetamine abuse. Patient has been counseled on cessation. Withdrawal protocols. Schizoaffective disorder. Psychiatry following. 04/01/2020. Optimize guideline directed medical therapy for heart failure per cardiology recommendations. Nephrology recommends gentle IV fluid hydration given the acute kidney injury. Await psychiatry consultation for auditory hallucinations. Cardiology recommends further follow-up with CT surgery evaluation when stable 04/02/2020. Patient with CKD IV based on previous labs. He has no acute indications for renal replacement therapy at this time, renal function improving on IVF. Renal US essentially shows atrophic left kidney and evidence of medical renal disease, otherwise no other acute abnormalities. Continue strict I/O and avoid all nephrotoxins. 04/03/2020. Creatinine has improved to 3.4. Continue gentle IV hydration per nephrology recommendations. Ascending aorta is dilated measuring 5.2 to 5.5 cm. Following optimization of renal status, patient will need further CT evaluation of dilated ascending aorta at discharge. Psychiatry signed off and recommends patient to be discharged on current medications. 04/04/2020 Patient is 54 yo with acute on chronic kidney disease, acute on chronic systolic CHF. Less shortness of breath. Chest pain on and off. Patient has ascending aortic aneurysm. total time spenyt on discharge,36 mins. Disposition: - TO HOME OR SELFCARE Core Measure Documentation - Palliative Care Palliative Care/ Comfort Measures: Not Applicable - Core Measures Any of the following diagnoses?: heart failure - Heart Failure Discharge Requirements RIO/ARB for LVSD if EF <40%: No Reason for no RIO/ARB: Renal impairment Beta mara at discharge: Yes Exam - Constitutional Vitals: Temp Pulse Resp BP Pulse Ox 98.1 F 88 17 141/100 96 04/05/20 10:49 04/05/20 10:49 04/05/20 12:41 04/05/20 10:49 04/05/20 10:49 Plan Diet: low fat, low cholesterol, low salt Additional Instructions: 1.Follow up with Dr. Purvi, Cardiology on discharge. 2.Continue Heparin subcut bid for DVT prophylaxis. 3.Continue Ceftriaxone daily for UTI. last dose tomorrow 04/06/20 Follow up with: PRIMARY CAREMD [Primary Care Provider] - 7 Days
--- NOTE | 2020-04-05 12:47 | Event Note ---
Date: 04/05/20 Informed by cardiology that arrangements being made to transfer patient to [place] for evaluation of ascending aortic aneurysm.
[2020-04-05] MEDS: MORPHINE 4 MG/1 ML INJ IV PRN ×2 (16:47→23:16)
[2020-04-06] MEDS: hydrALAZINE 20 MG/1 ML INJ IV PRN (03:14)
[2020-04-06 04:44] LABS: Hemoglobin 10.1 gm/dl (11.8-15.2)
[2020-04-06] MEDS: ISOSORB DINIT/HYDRALAZINE 20-37.5MG TAB PO SCH ×2 (05:22→13:08)
[2020-04-06] MEDS: MORPHINE 4 MG/1 ML INJ IV PRN ×2 (05:33→11:41)
--- NOTE | 2020-04-06 07:28 | Progress Note ---
Assessment and Plan - Patient Problems (1) Acute kidney injury superimposed on CKD Current Visit: Yes Status: Acute Plan to address problem: kidney function tests not done this morning. Follow-up electrolytes and renal function. (2) Ascending aortic aneurysm Current Visit: Yes Status: Acute Plan to address problem: cardiology appreciated. I discussed with distribution driver yesterday about plans and benefits and risk. For evaluation by CT surgery after optimizing renal function. Kidney function may have stabilized at ? baseline. Patient is at increased risk post vascular surgery acute tubular necrosis which may be dialysis requiring. This has been discussed with the patient and he understands the benefits and risks. (3) Substance use disorder Current Visit: Yes Status: Acute Plan to address problem: counseling on cessation (4) Hypertensive chronic kidney disease with stage 1 through stage 4 chronic kidney disease, or unspecified chronic kidney disease Current Visit: Yes Status: Chronic Plan to address problem: blood pressure is fluctuating. Follow blood pressure on current medications (5) Chronic CHF (congestive heart failure) Current Visit: Yes Status: Chronic Plan to address problem: Dyspnea is worsening again. We will start p.o. Lasix. Continue to monitor volume status (6) Anemia in chronic kidney disease Current Visit: Yes Status: Acute Plan to address problem: hemoglobin stable. Followup Subjective Date of service: 04/06/20 Principal diagnosis: JEANNIE Interval history: patient seen lying in bed. Still complaining of shortness of breath. No nausea or vomiting today. Objective - Exam Narrative Exam: middle-aged male in no acute distress HEENT: Normocephalic atraumatic, pupils equal round reactive to light Normal oropharynx, Neck: Supple, no venous distention, no goiter CVS: S1S2 RRR No murmur, No rub or gallop Lungs: Clear to auscultation but breath sounds diminished in the lower zones, no use of accessory muscles of respiration Abdomen: Full, soft, nontender, no organomegaly no bruit, bowel sounds are present Extremities: No edema, no cyanosis or clubbing Urinary: Deferred Musculo-skeletal: No joint deformities or swelling Neuro: Awake, alert, no focal deficits - Vital Signs Vital signs: Vital Signs - 12hr 04/05/20 04/05/20 04/05/20 22:00 22:53 23:16 Temperature 97.3 F L Pulse Rate 83 Pulse Rate [ 85 From Monitor] Respiratory 18 24 18 Rate Blood Pressure Blood Pressure [Right] O2 Sat by Pulse 96 Oximetry 04/05/20 04/05/20 04/05/20 23:18 23:19 23:40 Temperature 97.3 F L Pulse Rate 85 85 91 H Pulse Rate [ From Monitor] Respiratory 24 Rate Blood Pressure 151/89 151/89 Blood Pressure 191/113 [Right] O2 Sat by Pulse 98 Oximetry 04/06/20 04/06/20 04/06/20 03:14 03:21 05:22 Temperature 97.9 F Pulse Rate 91 H 85 85 Pulse Rate [ From Monitor] Respiratory 18 Rate Blood Pressure 191/113 137/98 137/98 Blood Pressure [Right] O2 Sat by Pulse 99 Oximetry - Lab 04/06/20 03:53 04/05/20 04:18 Most recent lab results Calcium 8.9 mg/dL (8.4-10.2) 04/05/20 04:18 Magnesium 1.90 mg/dL (1.7-2.3) 04/05/20 04:18 Medications & Allergies - Medications Allergies/Adverse Reactions: Allergies Sulfa (Sulfonamide Antibiotics) Allergy (Verified 06/02/19 23:12) Hives sulfamethoxazole [From Bactrim] Allergy (Verified 06/02/19 23:12) Hives trimethoprim [From Bactrim] Allergy (Verified 06/02/19 23:12) Hives Home Medications: Home Medications Medication Instructions Recorded Confirmed Last Taken Type Omeprazole 40 mg PO DAILY #30 capsule. 06/03/19 Unknown Rx Tamsulosin [Flomax] 0.4 mg PO QDAY #12 cap 06/03/19 Unknown Rx Aspirin EC [Ecotrin] 325 mg PO QDAY tablet 04/05/20 Unknown Rx Isosorb Dinit/Hydralazine [Bidil 1 each PO Q8HR tablet 04/05/20 Unknown Rx 20/37.5MG] Melatonin [Melatonin 5MG TAB] 5 mg PO QHS PRN tablet 04/05/20 Unknown Rx Nitroglycerin [Nitrostat] 0.4 mg SL Q5M PRN tablet 04/05/20 Unknown Rx OLANzapine [ZyPREXA] 5 mg PO QHS tablet 04/05/20 Unknown Rx [place]-3 Fatty Acids/Fish Oil [Fish 2,000 mg PO BID capsule 04/05/20 Unknown Rx Oil] Sodium Bicarbonate 650 mg PO TID tablet 04/05/20 Unknown Rx Venlafaxine Xr [Effexor XR] 150 mg PO QDAY capsule 04/05/20 Unknown Rx carvediloL [Coreg] 6.25 mg PO BID tablet 04/05/20 Unknown Rx hydrALAZINE [Apresoline INJ] 20 mg IV Q6HR PRN vial 04/05/20 Unknown Rx Active Medications: Generic Name Dose Route Start Last Admin Trade Name Freq PRN Reason Stop Dose Admin Acetaminophen 650 mg 03/31/20 01:07 04/05/20 12:41 Tylenol PO 650 mg Q4H PRN Administration Pain MILD(1-3)/Fever >100.5/SINGH Aspirin 325 mg 04/01/20 10:00 04/05/20 09:09 Ecotrin PO 325 mg QDAY JULIENNE Administration Carvedilol 6.25 mg 03/31/20 13:00 04/05/20 23:18 Coreg PO 6.25 mg BID JULIENNE Administration Fish Oil 2,000 mg 04/01/20 12:00 04/05/20 23:19 Fish Oil PO 2,000 mg BID JULIENNE Administration Heparin Sodium (Porcine) 5,000 unit 03/31/20 22:00 04/05/20 23:22 Heparin SUB-Q 5,000 unit Q12HR JULIENNE Administration Hydralazine HCl 20 mg 04/03/20 11:40 04/06/20 03:14 Apresoline IV 20 mg Q6HR PRN Administration For SBP>170 Ceftriaxone Sodium 1 gm in 50 mls @ 100 mls/hr 03/31/20 10:00 04/05/20 09:09 Rocephin/Ns 1 Gm/50 Ml IV 04/06/20 10:29 100 mls/hr Q24HR JULIENNE Administration Protocol Isosorbide Dinitrate/Hydralazine 1 each 03/31/20 22:00 04/06/20 05:22 Bidil 20/37.5mg PO 1 each Q8HR JULIENNE Administration Melatonin 5 mg 04/01/20 22:00 Melatonin PO QHS PRN Sleep Morphine Sulfate 2 mg 03/31/20 01:07 04/06/20 05:33 Morphine IV 2 mg Q5MIN PRN Administration Chest Pain Nitroglycerin 0.4 mg 03/31/20 01:07 Nitrostat SL Q5M PRN Chest Pain Olanzapine 5 mg 04/01/20 22:00 04/05/20 23:18 Zyprexa PO 5 mg QHS JULIENNE Administration Ondansetron HCl 4 mg 03/31/20 01:07 04/01/20 20:29 Zofran IV 4 mg Q8H PRN Administration Nausea And Vomiting Sodium Bicarbonate 650 mg 03/31/20 20:00 04/05/20 23:20 Sodium Bicarbonate PO 650 mg TID JULIENNE Administration Sodium Chloride 10 ml 03/31/20 10:00 04/06/20 01:24 Sodium Chloride Flush Syringe 10 Ml IV 10 ml BID JULIENNE Administration Sodium Chloride 10 ml 03/31/20 01:07 Sodium Chloride Flush Syringe 10 Ml IV PRN PRN LINE FLUSH Sorbitol 30 ml 04/03/20 09:30 Sorbitol 70% PO DAILY PRN Constipation Venlafaxine HCl 150 mg 04/02/20 12:00 04/05/20 09:09 Effexor Xr PO 150 mg QDAY JULIENNE Administration
[2020-04-06] MEDS: VENLAFAXINE XR 75 MG CAP PO SCH (09:24)
[2020-04-06] MEDS: OMEGA-3 FATTY ACIDS/FISH OIL 1 GRAM CAP PO SCH (09:24)
[2020-04-06] MEDS: SODIUM BICARBONATE 650 MG TAB PO SCH ×2 (09:25→13:08)
[2020-04-06] MEDS: cefTRIAXone/NS 1 GM/50 ML 1 GM/50 ML BAG IV SCH (09:25)
[2020-04-06] MEDS: HEPARIN 5,000 UNIT/1 ML VIAL SUB-Q SCH (09:26)
[2020-04-06] MEDS: ASPIRIN EC 325 MG TAB PO SCH (09:26)
[2020-04-06] MEDS ORDERED: FUROSEMIDE 40 MG TAB PO SCH (10:00)
[2020-04-06] MEDS ORDERED: carvediloL 12.5 MG TAB PO SCH (10:00)
--- NOTE | 2020-04-06 10:50 | Progress Note ---
Assessment and Plan Acute on chronic systolic heart failure echocardiogram shows a left ventricular ejection fraction of 20 to 25%. Ascending aortic aneurysm the ascending aorta is dilated, measures 5.2 to 5.5 cm. Renal failure Hypertension Substance abuse Advised sodium/fluid restrictions. Continue medical management for chronic heart failure as tolerated. Awaits transfer to [facility] for further CT surgery evaluation of the patient's 5.5 cm ascending aneurysm. Subjective Date of service: 04/06/20 Principal diagnosis: JEANNIE Interval history: Awaits transfer to [place] Objective Vital Signs Temp Pulse Pulse Pulse Resp BP BP 04/06/20 10:00 92 H 92 H 18 04/06/20 09:25 92 H 139/91 04/06/20 08:07 96.9 F L 92 H 18 139/91 04/06/20 05:22 85 137/98 04/06/20 03:21 97.9 F 85 18 137/98 04/06/20 03:14 91 H 191/113 04/05/20 23:40 97.3 F L 91 H 24 191/113 04/05/20 23:19 85 151/89 04/05/20 23:18 85 151/89 04/05/20 23:16 18 04/05/20 22:53 97.3 F L 24 04/05/20 22:00 83 85 18 04/05/20 19:01 98.3 F 85 18 151/89 04/05/20 16:47 16 04/05/20 16:23 97.9 F 86 16 141/87 04/05/20 13:18 87 158/100 04/05/20 12:41 17 Pulse Ox 04/06/20 10:00 98 04/06/20 09:25 04/06/20 08:07 99 04/06/20 05:22 04/06/20 03:21 99 04/06/20 03:14 04/05/20 23:40 98 04/05/20 23:19 04/05/20 23:18 04/05/20 23:16 04/05/20 22:53 04/05/20 22:00 96 04/05/20 19:01 96 04/05/20 16:47 04/05/20 16:23 100 04/05/20 13:18 04/05/20 12:41 - Physical Examination General: No Apparent Distress HEENT: Positive: PERRL Neck: Positive: neck supple Cardiac: Positive: Reg Rate and Rhythm Neuro: Positive: Grossly Intact - Labs and Meds CBC 04/06/20 Range/Units 03:53 Hgb 10.1 L (11.8-15.2) gm/dl Hct 31.0 L (35.5-45.6) % Plt Count 97 L (140-440) K/mm3
[2020-04-06 17:26] VITALS: BP 161/110
== END 2020-04-06 17:45 | disposition short-term general hospital (02) | DRG 291 ==
LOC: ED 21:37 → 4A 03-31 00:30
PROVIDERS: ADMIT Internal Medicine Geriatric Medicine; ATTEND Internal Medicine
DX: I13.0 Hypertensive heart and chronic kidney disease with heart failure and stage 1 through stage 4 chronic kidney disease, or unspecified chronic kidney disease (principal); N17.0 Acute kidney failure with tubular necrosis; I50.23 Acute on chronic systolic (congestive) heart failure; N39.0 Urinary tract infection, site not specified; F15.20 Other stimulant dependence, uncomplicated; F23 Brief psychotic disorder; I71.2 Thoracic aortic aneurysm, without rupture; R07.9 Chest pain, unspecified; F17.210 Nicotine dependence, cigarettes, uncomplicated; J44.9 Chronic obstructive pulmonary disease, unspecified; F25.0 Schizoaffective disorder, bipolar type; F19.94 Other psychoactive substance use, unspecified with psychoactive substance-induced mood disorder; D63.1 Anemia in chronic kidney disease; N18.9 Chronic kidney disease, unspecified; Z91.14 Patient's other noncompliance with medication regimen; Z87.442 Personal history of urinary calculi; Z88.2 Allergy status to sulfonamides
CPT/HCPCS: 36415; 71045; 76770; 80048; 80061; 80307; 81001; 83735; 83880; 84484; 85014; 85018; 85025; 85049; 85520; 85610; 85730; 93005; 93306; G0378; J0360; J0696; J1644; J1940; J2060; J2270; J2405; J7030; J7040